=== PATIENT | female | born 1950 | race Caucasian/White ===

== ENCOUNTER → 2024-02-23 | Outpatient (CLI) | payer OTHER, SELFPAY ==
[2024-02-23 10:45] LABS: Basophils # (Auto) 0.1 Thou/mm3 (0.0-0.2); Basophils % (Auto) 1 % (0-2.5); Eosinophils # (Auto) 0.1 Thou/mm3 (0.0-0.5); Eosinophils % (Auto) 1 % (0-10); Hematocrit 38.1 % (36.0-46.0); Hemoglobin 12.4 g/dL (12.0-16.0); Immature Granulocytes % (Auto) 0 % (0-0); Immature Granulocytes Auto 0.03 Thou/mm3 (0.00-0.00); Lymphocytes # (Auto) 2.4 Thou/mm3 (1.0-4.8); Lymphocytes % (Auto) 27 % (10-50); Mean Corpuscular HGB Conc 32.5 g/dl (31.0-37.0); Mean Corpuscular Hemoglobin 28.2 pg (25.0-35.0); Mean Corpuscular Volume 87 fL (80-100); Monocytes # (Auto) 0.4 Thou/mm3 (0.0-0.8); Monocytes % (Auto) 5 % (0-12); Neutrophils # (Auto) 5.7 Thou/mm3 (1.8-7.7); Neutrophils % (Auto) 66 % (37-80); Nucleated Red Blood Cell % 0 /100 WBC (0); Platelet Count 348 Thou/mm3 (140-440); RDW Standard Deviation 45.8 fL (36.4-46.3); White Blood Count 8.7 Thou/mm3 (3.6-11.0)
[2024-02-23 10:58] LABS: Glucose Estimated Average 143 mg/dL (80-131); Hemoglobin A1C 6.6 % Hgb (4.8-6.0)
[2024-02-23 11:12] LABS: Alanine Aminotransferase 12 U/L (10-49); Albumin, Serum 4.6 gm/dL (3.4-4.8); Albumin/Globulin Ratio 2.7 (1.2-2.2); Alkaline Phosphatase 81 U/L (46-116); Anion Gap 6 (7-16); Aspartate Amino Transferase 15 U/L (0-34); BUN/Creatinine Ratio 13 Ratio (12-20); Bilirubin,Total 0.5 mg/dL (0.3-1.2); Blood Urea Nitrogen 12 mg/dL (9-23); Calcium 9.6 mg/dL (8.3-10.6); Calcium (Corrected) 9.6 mg/dL (8.5-10.1); Carbon Dioxide 27.7 mMol/L (20.0-31.0); Chloride 106 mMol/L (98-107); Creatinine (Component) 0.9 mg/dL (0.6-1.3); Globulin 1.7 gm/dL (2.3-3.5); Glucose 161 mg/dL (74-106); Osmolality,Calculated 282 (275-295); Potassium 5.1 mMol/L (3.4-5.1); Sodium 140 mMol/L (136-145); Total Protein 6.3 gm/dL (5.7-8.2); eGFR > 60 See Note
== END | disposition home or self-care (01) ==
LOC: COPL 09:48
PROVIDERS: PCP Family Medicine; Referring Provider Family Medicine; Visit Provider Family Medicine
DX: E11.65 Type 2 diabetes mellitus with hyperglycemia (principal); E03.9 Hypothyroidism, unspecified; I10 Essential (primary) hypertension
CPT/HCPCS: 36415; 80053; 83036; 85025

== ENCOUNTER 2024-05-15 08:24 | Inpatient (IN) | payer MEDICARE, OTHER, SELFPAY ==
[2024-05-15] VITALS (9 sets, daily range): BP systolic 162–187; BP diastolic 80–89; PULSE 61–90; RESP 13–97; TEMP 36.6–37; O2SAT 95–99; BMI 28.1
--- NOTE | 2024-05-15 08:28 | XR_ITS ---
Examination: CTA carotids with intravenous contrast CTA brain, head with intravenous contrast. 2-D sagittal, coronal reconstructions. 3-D reconstructions. Exam date and time: May 15, 2024 0834 hrs. Indications: Stroke alert, onset focal neurologic deficit slurred speech beginning 6:00 AM this morning CTDI: vol (mGy) 24.3 DLP: (mGycm) 421 Technique: Multiple CTA axial brain, head carotid images post intravenous contrast injection 75 cc, [id number]. 2-D sagittal, coronal reconstructions. 3-D reconstructions, 3-D post processing including vascular maximum intensity projection images. Low dose protocols were performed. One or more of the following dose reduction techniques were used; automated exposure control, adjustment of the mA and/or KV according to patient size, use of iterative reconstruction technique. Findings: No significant common carotid carotid bifurcation or internal carotid artery stenoses Dominant left vertebral artery with no critical stenoses Intracranial right vertebral artery is not well visualized Basilar artery posterior cerebral artery branches intact Juxtasellar internal carotid artery branches intact, no large vessel occlusions involving middle cerebral or anterior cerebral arteries Impression: No significant neck arterial stenoses No cerebral large vessel arterial occlusions or thrombus Consider brain MRI MRA without contrast, stroke protocol, follow-up
--- NOTE | 2024-05-15 08:28 | EDNOTE_ITS ---
ED General RME/HPI General Chief complaint: Altered Mental Status Stated complaint: AMS,POSS STROKE Time Seen by Provider: 05/15/24 08:27 Arrival date/time: 05/15/24 08:24 RME / HPI RME / HPI narrative: 73-year-old female with a history of hypertension, byc-llctont-eaoyrfhfy diabetes, who presents by EMS after being found in an f altered mental status, slurred speech at around 745 this morning. last had a conversation with her around 0630 and reports her being at her normal mental status. Related Data Home Medications ?Medication ?Instructions ?Recorded ?Confirmed Albuterol Sulfate HFA (INHALER) 1 - 2 puff inhalation Q4HR PRN 09/06/14 (PROVENTIL HFA (INHALER)) RESPIRATORY DISTRESS #0 inha lations Diphenoxylate Hcl/Atrop Sulf * 2 tab PO PRN PRN DIARRH EA #0 tabs 09/06/14 (LOMOTIL *) Fluticasone Propionate NASAL * 1 - 2 spry NASAL QDAY # 0 spry 09/06/14 (FLONASE *) Levothyroxine * (SYNTHROID *) 88 mcg PO QDAY #0 tabs 0 09/06/14 Terazosin * (HYTRIN *) 2 mg PO BID #0 caps 09/06/14 carvedilol 12.5 mg tablet (Coreg) 12.5 mg PO BID #0 ta bs 09/06/14 dapagliflozin propanediol 10 mg 10 mg PO QDAY #0 tabs 09/06/14 tablet (Farxiga) esomeprazole magnesium 40 mg 40 mg PO QDAY ##0 5 capsule,delayed release (Nexium) loratadine 10 mg tablet (Claritin) 10 mg PO QDAY #0 ta bs 09/06/14 metformin 1,000 mg tablet 1,000 mg PO BID #0 tabs 08/12 10/25 (Glucophage) pravastatin 40 mg tablet 40 mg PO HS #0 tabs 09/06/14 (Pravachol) Allergies Allergy/AdvReac Type Severity Reaction Status Date / Time Penicillins Allergy Mild Hives Verified 04/12/23 11:20 codeine Allergy Unknown Verified 04/12/23 11:20 Review of Systems Review of Systems Systems Reviewed: All systems reviewed, normal except as documented ED Exam Narrative Physical exam: GENERAL APPEARANCE: AxOx4, generally well-appearing, no acute distress, mild dysarthria, slightly confused on command but moving all 4 extremities briskly. HEENT: NC, AT. MMM. EOMI, clear conjunctiva, oropharynx clear. NECK: Supple without lymphadenopathy. No stiffness or restricted ROM. HEART: Normal rate and regular rhythm, normal S1/S1, no m/r/g LUNGS: CTAB, moving air well. No crackles or wheezes are heard. ABDOMEN: Soft, nontender, nondistended with good bowel sounds heard. BACK: No midline C/T/L spine pain or deformity, No CVAT, no obvious deformity. EXTREMITIES: Without cyanosis, clubbing or edema. MUSCULOSKELETAL: FROM of all major joints, no chest tenderness NEUROLOGICAL: Grossly nonfocal. Alert and oriented, moving all 4 extremities. CN not formally tested but appear grossly intact. Observed to ambulate with normal gait. Skin: Warm and dry without any rash. 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 Care 05/15/24 08:28 Active Continuous Pulse Oximetry NOW Care 05/15/24 08:28 Completed EKG (ED ONLY) *Do not use* NOW Care 05/15/24 08:28 Completed In and Out Catheter NEEDED Care 05/15/24 08:28 Active Insert IV NOW Care 05/15/24 08:28 Active NIH Stroke Scale now Care 05/15/24 08:28 Active NPO NOW Care 05/15/24 08:28 Active Neuro Check Q30MIN Care 05/15/24 08:28 Active Nurse Swallow Screen x1 Care 05/15/24 08:28 Active Consult to Neurology / Tele-Neurology Routine Cons 05/15/24 08:[address] angio stroke protocol Stat Exams 05/15/24 08:[address] stroke protocol Stat Exams 05/15/24 08:28 Completed EKG (ED Only) Stat Exams 05/15/24 08:28 Ordered CBC Stat Lab 05/15/24 08:30 Completed Comprehensive Metabolic Panel Stat Lab 05/15/24 08:30 Completed Drug Screen,Urine Stat Lab 05/15/24 10:45 Completed Magnesium Stat Lab 05/15/24 08:30 Completed Partial Thromboplastin Time Stat Lab 05/15/24 08:30 Completed Prothrombin Time with INR Stat Lab 05/15/24 08:30 Completed Troponin I Stat Lab 05/15/24 08:30 Completed Urinalysis Stat Lab 05/15/24 10:45 Completed Urine Culture Stat Lab 05/15/24 08:28 Received Aspirin [Ecotrin] Med 05/15/24 10:03 Discontinued 81 mg PO X1 ONE Clopidogrel [Plavix] Med 05/15/24 10:03 Discontinued 75 mg PO X1 ONE Ondansetron Inj [Zofran Inj] Med 05/15/24 08:28 Active 4 mg IV Q4HR PRN Oxygen Delivery NOW RT 05/15/24 08:28 Active Reevaluation(s) Reevaluation #1: As I am in the room assisting with IT issues with the teleneurology screen, my reevaluation notes near complete resolution of her dysarthria. She is following commands much faster however does still appear to be confused, moving all 4 extremities well. Time: 09:00 Vital Signs Vital signs: Vital Signs Temperature 98.6 F 05/15/24 08:51 Pulse Rate 64 05/15/24 08:51 Respiratory Rate 26 H 05/15/24 08:51 Blood Pressure 179/89 H 05/15/24 08:51 Pulse Oximetry (%) 95 05/15/24 08:51 Oxygen Delivery Method Room Air 05/15/24 08:51 SpO2 95% on room air, patient is not hypoxic [facility] Patient data External records reviewed:: [facility] previous records Clinical information provided by:: patient and EMS Social determinants that could affect healthcare access:: none Patient has the following chronic illnesses:: Fkq-bzywayh-howrguisq diabetes, dyslipidemia, hypothyroid How is presenting disease/condition affected by chronic disease/condition?: e xacerbated by Evaluation data The following diagnostics were reviewed and interpreted by me:: lab results and radiology exam(s) Lab and/or radiology exams considered but not ordered:: As per narrative Interpretation Summary: As per narrative Medications Medications considered but not ordered:: None Medication administrations:: Medication Administration History Ondansetron HCl (Ondansetron Inj 2 Mg/Ml Inj 2 Ml) 4 mg IV Q4HR PRN PRN Reason: NAUSEA OR VOMITING Stop: 06/14/24 08:27 Discontinued Medications Aspirin (Aspirin Ec 81 Mg Tabec) 81 mg PO X1 ONE Stop: 05/15/24 10:04 Last Admin: 05/15/24 10:55 Dose: 81 mg Documented By: DB Clopidogrel Bisulfate (Clopidogrel Bisulfate 75 Mg Tablet) 75 mg PO X1 ONE Stop: 05/15/24 10:04 Last Admin: 05/15/24 10:55 Dose: 75 mg Documented By: DEEP Above Consultations Consultation(s) initiated? (list below): Yes Consultation #1 (Physician, Specialty, Details): Teleneurology, we reviewed the case at length and agrees where even during my reevaluations dysarthria appears to have resolved. NIH SS score of 1. Recommend to start low-dose aspirin, Plavix, and admission for TIA workup/MRI, no thrombolytics given symptoms have resolved, no disabling deficits. Time: 09:15 Diagnosis Differential Diagnosis ED Complaint MDM: CVA, TIA, dehydration, intracerebral hemorrhage, seizure Most likely diagnosis given after review of the tests above:: See below Admission Indicated Admission indicated?: indicated Explain why admission is indicated or not indicated:: As per narrative Admission Request Was there a request for admission?: Yes Admission Attestation Admission request attestation: Discussed case with [Dr. Garay] from Hospitalist service regarding admission. Discussed patients ED course, exam findings, labs, and radiology results. The Hospitalist [agrees] to accept the patient for admission. Disposition Plan Disposition Plan: Admit Medical Decision Making MDM Narrative [facility] Narrative: Ms. Sahu is a clinically well-appearing female who presented as a stroke alert about 2 hours from last known well with symptoms of dysarthria. Within 30 minutes here in the emergency department the dysarthria appears to have resolved. Head CT and angiography shows no acute finding particularly no intracerebral hemorrhage or large vessel occlusion. She will require admission for further testing such as MRI to rule out TIA or ischemic stroke. Differential Diagnosis Differential Diagnosis: CVA, TIA, dehydration, intracerebral hemorrhage, seizure Lab Data 05/15/24 08:30 05/15/24 08:30 Labs: Lab Results 05/15/24 Range/Units 08:30 WBC 8.9 (3.6-11.0) Thou/mm3 RBC 4.03 (4.00-5.20) Miln/mm3 Hgb 11.5 L (12.0-16.0) g/dL Hct 34.7 L (36.0-46.0) % MCV 86 (80-100) fL MCH 28.5 (25.0-35.0) pg MCHC 33.1 (31.0-37.0) g/dl RDW Std Deviation 44.6 (36.4-46.3) fL Plt Count 289 (140-440) Thou/mm3 Neut % (Auto) 59 (37-80) % Lymph % (Auto) 33 (10-50) % [place] % (Auto) 6 (0-12) % Eos % (Auto) 1 (0-10) % Baso % (Auto) 1 (0-2.5) % Neut # (Auto) 5.2 (1.8-7.7) Thou/mm3 Lymph # (Auto) 2.9 (1.0-4.8) Thou/mm3 [place] # (Auto) 0.5 (0.0-0.8) Thou/mm3 Eos # (Auto) 0.1 (0.0-0.5) Thou/mm3 Baso # (Auto) 0.1 (0.0-0.2) Thou/mm3 Immature Gran # (Auto) 0.03 H (0.00-0.00) Thou/mm3 Absolute Nucleated RBC 0.00 (0.00-0.00) Thou/mm3 Immature Gran % 0 (0-0) % Nucleated RBC % 0 (0) /100 WBC PT 11.5 (9.0-12.2) Seconds INR 1.1 (0.9-1.3) APTT 25.9 (22.0-36.0) Seconds Sodium 142 (136-145) mMol/L Potassium 4.0 (3.4-5.1) mMol/L Chloride 104 (98-107) mMol/L Carbon Dioxide 28.2 (20.0-31.0) mMol/L Anion Gap 10 (7-16) BUN 10 (9-23) mg/dL Creatinine 0.9 (0.6-1.3) mg/dL Estim Creat Clear Calc Not Performed. eGFR > 60 (60 - ) See Note BUN/Creatinine Ratio 11 L (12-20) Ratio Glucose 150 H (74-106) mg/dL Calculated Osmolality 285 (275-295) Calcium 9.0 (8.3-10.6) mg/dL Corrected Calcium 9.0 (8.5-10.1) mg/dL Magnesium 1.4 L (1.6-2.6) mg/dL Total Bilirubin 0.6 (0.3-1.2) mg/dL AST 12 (0-34) U/L ALT 11 (10-49) U/L Alkaline Phosphatase 81 (46-116) U/L Troponin I < 0.020 (0.0-0.045) ng/mL Total Protein 6.2 (5.7-8.2) gm/dL Albumin 4.1 (3.4-4.8) gm/dL Globulin 2.1 L (2.3-3.5) gm/dL Albumin/Globulin Ratio 2.0 (1.2-2.2) Critical Care Time Critical Care Time Critical Care Time: Yes Total Critical Care Time (min.): 45 Attestation: Excluding billable procedures for the rep response, analysis, management, deliberation with specialist, treatment, and documentation of at the very possible risk of neurologic deterioration Discharge Plan Plan Patient Disposition: HOME (Self Care) Problem List Clinical Impression: TIA (transient ischemic attack), Dementia
--- NOTE | 2024-05-15 08:28 | XR_ITS ---
Examination: CT brain head without contrast. 2-D sagittal coronal reconstructions Date and time of exam:May 15, 2024 0830 hrs. Indications: Stroke alert, onset focal neurologic deficit altered mental status facial droop beginning 0600 hrs. This morning CTDI: vol (mGy):45.9 DLP: (mGycm):915 Technique: Multiple CT axial sections of the brain have been obtained, 5 mm slice thickness. Contrast has not been administered. 2-D sagittal, coronal reconstructions have been obtained Low dose protocols were performed. One or more of the following dose reduction techniques were used; automated exposure control, adjustment of the mA and/or KV according to patient size, use of iterative reconstruction technique. Findings: No significant ventricular enlargement. Intra-axial or extra-axial hemorrhage density is not seen. No mass effect or midline shift Basal cisterns are not remarkable. Fourth ventricle is midline. Cranial vault intact. Impression: Negative for acute hemorrhage, mass effect or midline shift
[2024-05-15 08:46] LABS: Basophils # (Auto) 0.1 Thou/mm3 (0.0-0.2); Basophils % (Auto) 1 % (0-2.5); Eosinophils # (Auto) 0.1 Thou/mm3 (0.0-0.5); Eosinophils % (Auto) 1 % (0-10); Hematocrit 34.7 % (36.0-46.0); Hemoglobin 11.5 g/dL (12.0-16.0); Immature Granulocytes % (Auto) 0 % (0-0); Immature Granulocytes Auto 0.03 Thou/mm3 (0.00-0.00); Lymphocytes # (Auto) 2.9 Thou/mm3 (1.0-4.8); Lymphocytes % (Auto) 33 % (10-50); Mean Corpuscular HGB Conc 33.1 g/dl (31.0-37.0); Mean Corpuscular Hemoglobin 28.5 pg (25.0-35.0); Mean Corpuscular Volume 86 fL (80-100); Monocytes # (Auto) 0.5 Thou/mm3 (0.0-0.8); Monocytes % (Auto) 6 % (0-12); Neutrophils # (Auto) 5.2 Thou/mm3 (1.8-7.7); Neutrophils % (Auto) 59 % (37-80); Nucleated Red Blood Cell % 0 /100 WBC (0); Platelet Count 289 Thou/mm3 (140-440); RDW Standard Deviation 44.6 fL (36.4-46.3); Red Blood Count 4.03 Miln/mm3 (4.00-5.20); White Blood Count 8.9 Thou/mm3 (3.6-11.0)
--- NOTE | 2024-05-15 08:58 | PC.NURSE ---
Dr. Bailey Mitchell on tele monitor talking to and assessing pt., after assessment Dr. Mitchell states he recommends MRI.
[2024-05-15 09:05] LABS: Alanine Aminotransferase 11 U/L (10-49); Albumin, Serum 4.1 gm/dL (3.4-4.8); Alkaline Phosphatase 81 U/L (46-116); Anion Gap 10 (7-16); Aspartate Amino Transferase 12 U/L (0-34); BUN/Creatinine Ratio 11 Ratio (12-20); Bilirubin,Total 0.6 mg/dL (0.3-1.2); Blood Urea Nitrogen 10 mg/dL (9-23); Carbon Dioxide 28.2 mMol/L (20.0-31.0); Chloride 104 mMol/L (98-107); Creatinine (Component) 0.9 mg/dL (0.6-1.3); Globulin 2.1 gm/dL (2.3-3.5); Glucose 150 mg/dL (74-106); INR 1.1 (0.9-1.3); Magnesium 1.4 mg/dL (1.6-2.6); Osmolality,Calculated 285 (275-295); Partial Thromboplastin Time 25.9 Seconds (22.0-36.0); Prothrombin Time 11.5 Seconds (9.0-12.2); Sodium 142 mMol/L (136-145); Total Protein 6.2 gm/dL (5.7-8.2); Troponin I < 0.020 ng/mL (0.0-0.045); eGFR > 60 See Note
--- NOTE | 2024-05-15 09:55 | ESCONSULT_ITS ---
Tele Neuro Consultation Consultation Date 05/15/24 Most Recent Vital Signs Last Vital Signs Temp 98.6 F 05/15/24 08:51 Pulse 62 05/15/24 09:29 Resp 13 05/15/24 09:29 BP 179/89 H 05/15/24 08:51 Pulse Ox 95 05/15/24 08:51 O2 Del Method Room Air 05/15/24 08:51 Laboratory-Coagulation Panel PT 11.5 Seconds (9.0-12.2) 05/15/24 08:30 INR 1.1 (0.9-1.3) 05/15/24 08:30 APTT 25.9 Seconds (22.0-36.0) 05/15/24 08:30 Consultation Narrative [facility] Patient Name:???Mikayla Sahu Date of :???1950 Identification Number:??? Date of Service:???05/15/2024 08:23:00 Diagnosis:?G45.9 - Transient cerebral ischemic attack, unspecified Impression: ?73 yo F with PMH of dementia, DM2, who presents to ED via EMS with facial droop. NIHSS of 6 for confusion, aphasia, and BLE weakness. No facial droop seen. CTH without hemorrhage. CTA without LVO. ?Thrombolytics not recommended due to suspicion of another diagnosis, inability to determine eligibility and resolved facial droop. ?Differential includes TIA vs acute ischemic stroke vs encephalopathy from any cause. ?Recommend toxic/metabolic evaluation, initiating dual anti platelet therapy and admission for stroke work up. ? ? Our recommendations are outlined below. Recommendations: ? Stroke/Telemetry Floor ? Neuro Checks ? Bedside Swallow Eval ? DVT Prophylaxis ? IV Fluids, Normal Saline ? Euglycemia and Avoid Hyperthermia (PRN Acetaminophen) ? Hold Anticoagulation for Now ? Bolus with Clopidogrel 300 mg bolus x1 and initiate dual antiplatelet therapy with Aspirin 81 mg daily and Clopidogrel 75 mg daily ? Antihypertensives PRN if Blood pressure is greater than 220/120 or there is a concern for End organ damage/contraindications for permissive HTN. If blood pressure is greater than 220/120 give labetalol PO or IV or Vasotec IV with a goal of 15% reduction in BP during the first 24 hours. Sign Out: ? Discussed with Emergency Department Provider Advanced Imaging:CTA Head and Neck Completed. LVO:No Patient in not a candidate for SUDHA Metrics: Last Known Well: 05/15/2024 06:30:15 Dispatch Time: 05/15/2024 08:23:00 Arrival Time: 05/15/2024 08:24:15 Initial Response Time: 05/15/2024 08:26:02Symptoms: facial droop. Initial patient interaction: 05/15/2024 08:55:37 NIHSS Assessment Completed: 05/15/2024 09:08:56Patient is not a candidate for Thrombolytic. Thrombolytic Medical Decision: 05/15/2024 09:08:57Patient was not deemed candidate for Thrombolytic because of following reasons: other diagnosis suspected TIA, encephalopathy. As per Radiologist CT Showed no hemorrhage Primary Provider Notified of Diagnostic Impression and Management Plan on: 05/15/2024 09:30:46 History of Present Illness:Patient is a 73 year old Female. Patient was brought by EMS for symptoms of facial droop. 73 yo F with PMH of dementia, DM2, who presents to ED via EMS with facial droop. Per EMS report, patient called paramedics after seeing his with an apparent facial droop. She also seemed more confused this morning, but is chronically confused. Unclear neurologic baseline. No history of blood thinner use. ? Past Medical History: ?Diabetes Mellitus ?Dementia/MCI unable to obtain due to:?? Patient Is Confused Medications: Anticoagulant use:??Unknown Antiplatelet use:?Unknown Reviewed EMR for current medications Allergies:? Reviewed Description:?PCN, codeine Allergies Unable To Obtain Due To:?Patient Is Confused Social History: Unable To Obtain Due To Patient Status :?Patient Is Confused Family History: Family History Cannot Be Obtained Because:Patient Is Confused ROS :?ROS Cannot Be Obtained Because:? Patient Is Confused Past Surgical History: Past Surgical History Cannot Be Obtained Because: Patient Is Confused There Is No Surgical History Contributory To Today?s Visit ? Examination: BP(179/85),?Pulse(63),?Blood Glucose(188) 1A: Level of Consciousness - Alert; keenly responsive?+ 0 1B: Ask Month and Age - Could Not Answer Either Question Correctly?+ 2 1C: Blink Eyes & Squeeze Hands - Performs Both Tasks?+ 0 2: Test Horizontal Extraocular Movements - Normal?+ 0 3: Test Visual Cr - No Visual Loss?+ 0 4: Test Facial Palsy (Use Grimace if Obtunded) - Normal symmetry?+ 0 5A: Test Left Arm Motor Drift - No Drift for 10 Seconds?+ 0 5B: Test Right Arm Motor Drift - No Drift for 10 Seconds?+ 0 6A: Test Left Leg Motor Drift - Drift, but doesn't hit bed?+ 1 6B: Test Right Leg Motor Drift - Drift, but doesn't hit bed?+ 1 7: Test Limb Ataxia (FNF/Heel-Posey) - No Ataxia?+ 0 8: Test Sensation - Normal; No sensory loss?+ 0 9: Test Language/Aphasia - Severe Aphasia: Fragmentary Expression, Inference Needed, Cannot Identify Materials?+ 2 10: Test Dysarthria - Normal?+ 0 11: Test Extinction/Inattention - No abnormality?+ 0 NIHSS Score:?6 Pre-Morbid Modified Lul Scale:Unable to assess Spoke with :?Dr. Puentes This consult was conducted in real time using interactive audio and video technology. Patient was informed of the technology being used for this visit and agreed to proceed. Patient located in hospital and provider located at [facility] e/office setting. Patient is being evaluated for possible acute neurologic impairment and high probability of imminent or life-threatening deterioration. I spent total of 51 minutes providing care to this patient, including time for face to face visit via telemedicine, review of medical records, imaging studies and discussion of findings with providers, the patient and/or family. Dr Bailey Mitchell [facility] For Inpatient follow-up with [facility] physician please call [facility] at . As we are not an outpatient service for any post hospital discharge needs please contact the hospital for assistance. If you have any questions for the [facility] physicians or need to reconsult for clinical or diagnostic changes please contact us via [facility] at .
[2024-05-15] MEDS: ASPIRIN EC 81 MG TABEC PO (10:55)
[2024-05-15] MEDS: CLOPIDOGREL BISULFATE 75 MG TABLET PO (10:55)
[2024-05-15 10:57] LABS: Collection Type, Urine Clean Catch
[2024-05-15 11:08] LABS: Bilirubin,Urine Negative (Negative); Blood,Urine Negative (Negative); Clarity,Urine Clear (Clear/Hazy); Color,Urine Lt-Yellow (Lt Yel-Yel); Glucose, Urine Negative (Negative); Ketones,Urine Negative (Negative); Leukocyte Esterase,Urine Positive (Negative); Nitrite,Urine Negative (Negative); Protein,Urine Negative (Neg - Trace); RBC,Urine < 1 /hpf (0-3); Specific Gravity,Urine 1.037 (1.001-1.035); Squamous Epithelial Cell,Urine 4 /hpf (0-5); Urobilinogen,Urine Negative mg/dL (0.0-1.0); WBC,Urine 5 /hpf (0-5)
[2024-05-15 11:15] LABS: Amphetamine/Methamp Scrn,U Negative (Negative); Barbiturate Screen,Urine Negative (Negative); Benzodiazepines Screen,Urine Negative (Negative); Benzoylecgonine Screen, Ur Negative (Negative); Fentanyl Screen,Urine Negative (Negative); Opiate Screen,Urine Negative (Negative); THC Screen,Urine Negative (Negative)
--- NOTE | 2024-05-15 13:11 | ECHO_ITS ---
Transthoracic Echo Report Ht (in): 145 Wt (lb): 188 Exam Location: Echo Lab Status: Inpatient [place] Alarm Operator: Kori Acosta Indications: Procedure Performed: BP: 118 / 87 HR: 79 Technical Quality: Technically difficult study MEASUREMENTS (Male / Female) Normal Values 2D ECHO LV Diastolic Diameter PLAX 4.9 cm 4.2 - 5.9 / 3.9 - 5.3 cm LV Systolic Diameter PLAX 3.4 cm IVS Diastolic Thickness 0.7 cm 0.6 - 1.0 / 0.6 - 0.9 cm LVPW Diastolic Thickness 0.9 cm 0.6 - 1.0 / 0.6 - 0.9 cm LV Relative Wall Thickness 0.3 LVOT Diameter 1.7 cm LV Ejection Fraction MOD BP 44.6 % >= 55 % LV Cardiac Index MOD BP 1142.8 cm?/min?m? LV Ejection Fraction MOD 4C 45.1 % LV Cardiac Index MOD 4C 999.6 cm?/min?m? LV Ejection Fraction 4C AL 46.1 % LV Cardiac Index 4C AL 1073.6 cm?/min?m? LV Ejection Fraction MOD 2C 41.5 % LV Cardiac Index MOD 2C 1145.7 cm?/min?m? LV Ejection Fraction 2C AL 41.9 % LV Cardiac Index 2C AL 1211.1 cm?/min?m? LA Volume Index 14.9 cm?/m? 16 - 28 cm?/m? M-MODE Aortic Root Diameter MM 2.4 cm AV Cusp Separation MM 1.3 cm DOPPLER AV Peak Velocity 141.0 cm/s AV Peak Gradient 8.0 mmHg AV Mean Gradient 4.0 mmHg AV Velocity Time Integral 31.3 cm LVOT Peak Velocity 95.3 cm/s LVOT Peak Gradient 3.6 mmHg LVOT Velocity Time Integral 21.7 cm LVOT Cardiac Index 1410.8 cm?/min?m? AV Area Cont Eq vti 1.6 cm? AV Area Cont Eq pk 1.5 cm? MV Area PHT 3.4 cm? MR Peak Velocity 351.0 cm/s MR Peak Gradient 49.3 mmHg Mitral E Point Velocity 50.4 cm/s Mitral A Point Velocity 79.5 cm/s Mitral E to A Ratio 0.6 LV E' Lateral Velocity 7.0 cm/s Mitral E to LV E' Lateral Ratio 7.2 LV E' Septal Velocity 5.8 cm/s Mitral E to LV E' Septal Ratio 8.7 PV Peak Velocity 93.7 cm/s PV Peak Gradient 3.5 mmHg FINDINGS Left Ventricle Normal left ventricular size, wall thickness, systolic function with no obvious regional wall motion abnormalities. Normal left ventricular diastolic filling pattern for age. The ejection fraction is visually estimated at 50 %. Right Ventricle The right ventricle is normal in size and systolic function. Left Atrium The left atrial cavity size is mildly increased. Right Atrium The right atrium is normal by two-dimensional imaging, color flow and Doppler imaging with no structural abnormalities, no thrombus formation present. Atrial Septum The interatrial septum appears normal with no evidence of a shunt. Aorta The aorta is normal by two-dimensional, color flow and Doppler interrogation. Mitral Valve The mitral valve is normal by two-dimensional, color flow and Doppler interrogation. There is mild mitral valve regurgitation, stenosis or prolapse. Aortic Valve The aortic valve is trileaflet and normal by two-dimensional, color flow and Doppler interrogation. There is no significant aortic valve regurgitation. Tricuspid Valve The tricuspid valve is normal by two-dimensional, color flow and Doppler interrogation. There is no significant tricuspid valve regurgitation. Pulmonic Valve The pulmonic valve is not well visualized. There is no significant pulmonic valve regurgitation. Vessels The pulmonary artery appears normal. The inferior vena cava pulmonary and hepatic veins appear normal. Pericardium The pericardium is normal by two-dimensional imaging. There is no significant pericardial effusion. CONCLUSIONS Indication: Bubble study Negative bubble study Normal left ventricular size and function. Estimated EF 50%. RV is normal in size and systolic function. LA cavity size is mildly increased. Mild MR. Magui Joe (Electronically Signed) Final Date: 17 May 2024 08:45
--- NOTE | 2024-05-15 13:30 | ESHP_ITS ---
Documentation for date of: 05/15/24 HPI History of Present Illness Chief complaint: Slurred speech, generalized weakness, acute encephalopathy History of present illness: 73-year-old female with past medical history of dementia, DM2, and hyperlipidemia was admitted to hospital on 05/15/2024 after coming to the ED with complaints of slurred speech, altered mental status, and weakness. Patient's who was at bedside providing most of the history given that patient has dementia at baseline. Per patient's he stated that the patient was in her usual state of health yesterday as well as earlier this morning, but and when he rechecked on her around 7:30 AM he noticed that she had some slurred speech and she could not get up of her seat and that even though he tried helping her standing up she would just plummet back to the seat. He also mentioned that she was a little bit more confused as she did not respond to his questions. He stated that the last time she was normal was a little bit earlier around 6:30 AM. He stated that this has been the first episode which the symptoms happen. On my assessment patient was back to baseline and she was able to move all extremities as well as maintain proper conversation. Her speech did not sound slurred at this time either. She was AO x 1 only to person, but this could be due to to her baseline dementia. As per the the patient has not been sick as of recently, no chest pain, or burning sensation during urination. ED course Initially patient came in hypertensive, tachypneic, and afebrile. Initial labs were relevant for low hemoglobin (11.5), hypomagnesemia (1.4), and UA was positive for leukocytes esterase, but no bacteria. Initial imaging included EKG which showed sinus tachycardia, head CT which was unremarkable, and head CTA which was also unremarkable. In the ED stroke alert was called and teleneurology recommended to place patient on DAPT and to allow permissive hypertension and to follow-up with MRI as per stroke protocol. PMH: As above Social Hx: Denies any alcohol, smoking, or drugs Review of Systems Review of Systems ROS Unobtainable: unobtainable due to medical condition Past Medical History Past Medical History CARDIAC: Negative Congestive Heart Failure RESPIRATORY: Negative Chronic Obstructive Pulmonary Disease (COPD) GENITOURINARY: Negative Renal Disease ENDOCRINE: Negative Diabetes Mellitus Type 1 or Diabetes Mellitus Type 2 OTHER HISTORY: Negative Blood Transfusions Social History SMOKING STATUS: Never smoker Exam Vital Signs Temp Pulse Resp BP Pulse Ox O2 Del Method 98.0 F 62 16 169/86 H 97 Room Air 05/15/24 11:18 05/15/24 11:18 05/15/24 11:18 05/15/24 11:18 05/15/24 11:18 05/15/24 11:18 Narrative Exam General: A/O x1 (only to time), no acute distress, well-nourished, well- developed Eyes: PERRL, EOMI. Anicteric, vision grossly intact. Ears: No ear pain, no ear discharge, Hearing grossly intact. Nose: No nasal discharge. Mouth/Throat: Dry mucous membranes, no redness, no lesions. Neck: Neck supple, non-tender, no cervical lymphadenopathy. Lungs: Clear LYUBOV to auscultation and percussion, No accessory muscle use. Cardio: Normal S1/S2, regular rhythm, no murmurs, no JVD Abdomen: Soft, non-tender, no palpable masses, peristalsis present, no guarding or rebound. Extremities: Symmetrical, no significant deformities, no peripheral edema , non-tender, peripheral pulses presents. Skin: No rashes, no lesions, warm to touch. Neuro: No focal neurological deficits. no facial asymmetry and strength and sensory intact. Psych: flat affect Results: Labs 05/15/24 08:30 05/15/24 08:30 Labs: Short CBC 05/15/24 Range/Units 08:30 WBC 8.9 (3.6-11.0) Thou/mm3 Hgb 11.5 L (12.0-16.0) g/dL Hct 34.7 L (36.0-46.0) % Plt Count 289 (140-440) Thou/mm3 BMP 05/15/24 08:30 Sodium 142 Potassium 4.0 Chloride 104 Carbon Dioxide 28.2 BUN 10 Creatinine 0.9 Glucose 150 H Calcium 9.0 Cardiac Enzymes 05/15/24 Range/Units 08:30 Troponin I < 0.020 (0.0-0.045) ng/mL Liver Function 05/15/24 Range/Units 08:30 Total Bilirubin 0.6 (0.3-1.2) mg/dL AST 12 (0-34) U/L ALT 11 (10-49) U/L Alkaline Phosphatase 81 (46-116) U/L Albumin 4.1 (3.4-4.8) gm/dL Urine 05/15/24 Range/Units 10:45 Urine Color Lt-Yellow (Lt Yel-Yel) Urine Clarity Clear (Clear/Hazy) Urine pH 7.0 (5.0-7.0) Ur Specific [place] 1.037 H (1.001-1.035) Urine Protein Negative (Neg - Trace) Urine Glucose (UA) Negative (Negative) Quality Measures Quality Measures stroke Suspected type of Stroke: Acute Ischemic Last known well (date): 05/15/24 Last known well (time): 06:30 Tenecteplase given: Reason(s) Tenecteplase not given: Stroke severity too mild (non-disabling) not given Rehab services: PT evaluation ordered and Speech Language Pathology eval ordered VTE Prophylaxis: pharmaceutical Antithrombotic by day 2:: not indicated (describe) Statin ordered: >75 y/o moderate or high intensity dose Anticoagulation ordered for A- fib or flutter (current or hx): not indicated Advance care planning discussed with:: patient Medications Home Medications and Allergies Home Medications ?Medication ?Instructions ?Recorded ?Confirmed ?Type metformin 1,000 mg tablet 1,000 mg PO BID #0 tabs 08/1205/15/24 History (Glucophage) pravastatin 40 mg tablet 20 mg PO HS #0 tabs 09/06/14 05/15/24 History (Pravachol) donepezil 10 mg tablet 10 mg PO QDAY 05/15/2405/15 History glyburide 5 mg tablet 5 mg PO TID 05/15/24 5 History lorazepam 2 mg/mL oral concentrate 0.5 mg PO PRN PRN a gitation 05/15/24 05/15/24 History (Lorazepam Intensol) mirtazapine 30 mg tablet 30 mg PO QDAY SLEEP 05/15/24 05/15/24 History quetiapine 50 mg tablet 100 mg PO Q6H 05/15/2405/15 History Allergies Allergy/AdvReac Type Severity Reaction Status Date / Time Penicillins Allergy Mild Hives Verified 04/12/23 11:20 codeine Allergy Unknown Verified 04/12/23 11:20 Visit Medications Acetaminophen (Acetaminophen 325 Mg Tablet) 650 mg PO Q6H PRN PRN Reason: pain and Fever >100.4 Stop: 06/14/24 13:07 Hydrocodone Bitart/Acetaminophen (Hydrocodone/Apap 5/325 Tablet) 1 tab PO Q4HR PRN PRN Reason: PAIN SCALE 4-10(Mod-Sev Stop: 05/20/24 13:07 Aspirin (Aspirin Ec 81 Mg Tabec) 81 mg PO QDAY [facility] Stop: 06/15/24 08:59 Atorvastatin Calcium (Atorvastatin Calcium 20 Mg Tablet) 40 mg PO HS [facility] Stop: 06/14/24 20:59 Clopidogrel Bisulfate (Clopidogrel Bisulfate 75 Mg Tablet) 75 mg PO QDAY [facility] Stop: 06/15/24 08:59 Dextrose (Dextrose 50%-Water Inj 50 Ml Syringe) 25 ml IV Q15MIN PRN PRN Reason: BG 50-70 responsive npo pt Stop: 06/14/24 13:07 Dextrose (Dextrose 50%-Water Inj 50 Ml Syringe) 50 ml IV Q15MIN PRN PRN Reason: BG <50 OR BG <70 & pt unresponsive Stop: 06/14/24 13:07 Glucagon (Glucagon Inj 1 Mg Vial) 1 mg IM Q15MIN PRN PRN Reason: BG <70, and no IV access Heparin Sodium (Porcine) (Heparin Sod Inj 5000 Unit/Ml Vial) 5,000 unit SC Q8HR [facility] Stop: 05/29/24 13:59 Sodium Chloride (Ns) 1,000 mls @ 75 mls/hr IV .[id number] [facility] Stop: 05/16/24 02:34 Insulin Human Lispro (Insulin Lispro (Admelog) 1 Unit/0.01 Ml Unit) 0 unit SC AC [facility]; Protocol Stop: 06/14/24 16:59 Ondansetron HCl (Ondansetron Inj 2 Mg/Ml Inj 2 Ml) 4 mg IV Q6H PRN; Protocol PRN Reason: NAUSEA OR VOMITING Stop: 06/14/24 13:07 Pantoprazole Sodium (Pantoprazole 40 Mg Tablet) 40 mg PO QDAY [facility] Stop: 06/15/24 08:59 Sennosides (Senna Tablet) 1 tab PO QDAY PRN; Protocol PRN Reason: constipation Stop: 06/14/24 13:07 Discontinued Medications Aspirin (Aspirin Ec 81 Mg Tabec) 81 mg PO X1 ONE Stop: 05/15/24 10:04 Last Admin: 05/15/24 10:55 Dose: 81 mg Clopidogrel Bisulfate (Clopidogrel Bisulfate 75 Mg Tablet) 75 mg PO X1 ONE Stop: 05/15/24 10:04 Last Admin: 05/15/24 10:55 Dose: 75 mg Ondansetron HCl (Ondansetron Inj 2 Mg/Ml Inj 2 Ml) 4 mg IV Q4HR PRN PRN Reason: NAUSEA OR VOMITING Stop: 06/14/24 08:27 Assessment & Plan Plan 73-year-old female with past medical history of dementia, DM2, and hyperlipidemia was admitted to hospital on 05/15/2024 for stroke rule out with complaints of slurred speech, acute encephalopathy, and weakness. #TIA #Slurred speech #Acute cephalopathy #Generalized weakness ? Patient initially came in with complaints of slurred speech as well as confusion and generalized weakness as per . ? On my assessment patient was already back to her baseline with no weakness or slurred speech appreciated. She is AO x 1 at baseline. ?DDx TIA versus metabolic encephalopathy ?NIHSS score 6 ?CTA head and neck and CT head unremarkable ?Teleneuro consulted and advised DAPT, permissive HTN, and MRI Plan: ?Patient not a candidate for IV thrombolytics. -MRI ordered per stroke protocol -Echo ordered ?Neurochecks every 4 hours ?Allow permissive hypertension ?Head of bed elevation to 30 degrees ?Aspiration precautions -Consult in-hospital neurology, appreciate recommendations -Referred to speech and physical therapy #UTI ? Patient's UA was positive for leukocyte esterase ? Given patient's dementia patient cannot provide history if she is having dysuria Plan: ? Rocephin 1 g daily [05/15/2024?] ?Urine cultures ordered ? Will continue to monitor #Hx of DM2 ? A1c 6.6 02/2024 Plan: ?A1c ordered ? ISS ? Accu-Cheks and hypoglycemia protocol ? Will continue to monitor #Hx of dementia ? Will restart patient's medication after medication reconciliation #Hx of hyperlipidemia ? Will start patient on atorvastatin 40 at bedtime Disposition: Patient admitted to telemetry for stroke R/O, pending Neuro recs, continue DAPT, pending echo. Diet: carb consistent GI prophylaxis: not indicated DVT prophylaxis: Heparin sc Code: Full code Case disclosed with Attending Dr. Anthony Moran PGY1 Attending Provider Attestation/Addendum I have examined the patient, reviewed labs and imaging findings, discussed the case with the resident(s), and reviewed entered orders. I agree with the plan of care as outlined in this note, with these additional summaries/recommendations: 73-year-old female with history of dementia, DM, hyperlipidemia presents to the ED with chief complaint of left-sided facial weakness and slurred speech. Stroke workup initiated but patient symptoms resolved by the time imaging and teleneurology consult was done. CT head done in the ED was negative for acute hemorrhage, mass effect or midline shift. Teleneuro advised to admit patient for further workup and management of TIA. UA also positive for UTI so will initiate on Rocephin. Patient does have history of dementia and has been warned that she sometimes will wander and may need sitter given she is high risk for hospital delirium. Greg Cruz MD
[2024-05-15] MEDS: HEPARIN SOD INJ 5000 UNIT/ML VIAL SC ×2 (14:15→21:16)
[2024-05-15] MEDS: SODIUM CHLORIDE 0.9% 1000 ML 1,000 ML 75 ML IV (14:44)
[2024-05-15] MEDS: cefTRIAXone/D5w 1gm IV premix 50 ML IV (17:04)
[2024-05-15] MEDS: Magnesium Sulfate 4 GM Ivpb 4 GM/50 ML BAG IV (17:04)
[2024-05-15] MEDS: HYDROcodone/APAP 5/325 TABLET 1 TAB PO (19:52)
[2024-05-15] MEDS: ATORVASTATIN CALCIUM 20 MG TABLET 40 MG PO (20:01)
--- NOTE | 2024-05-15 23:55 | PC.NURSE ---
pt pulled out IV, new one placed
[2024-05-16] VITALS (8 sets, daily range): BP systolic 118–188; BP diastolic 75–96; PULSE 58–85; RESP 14–96; TEMP 36.1–36.8; O2SAT 96–99; BMI 28.7
--- NOTE | 2024-05-16 | XR_ITS ---
Examinations: MRI Brain without intravenous contrast. MRA brain without intravenous contrast. MRA carotids without intravenous contrast 3-D vascular reconstructions Date and time of exam: May 16, 2024 1227 hours INDICATIONS: Stroke alert May 15, 2024 onset slurred speech weakness Technique: Multiple axial and sagittal images of the brain have been obtained MRA brain carotid images without contrast obtained, including 3-D postprocessing, vascular maximum intensity projection images Findings: [place] is not enlarged. The optic chiasm and infundibular stalk are not remarkable. Prepontine and interpeduncular cisterns are not enlarged. No localized enlargement of the medulla or [place]. Fourth ventricle and cerebellar tonsils normal in position. Subacute hemorrhage is not seen. Fourth ventricle is midline. Mass in the cerebellopontine angle region is not evident. 7th and 8th nerve complexes exhibits symmetry. Globes are symmetrical with no retro-orbital mass. Increased white matter signal moderate Diffusion-weighted images demonstrate no focus of restricted diffusion Mass-effect upon the ventricular system is not identified. MRA brain images no large vessel occlusions Impression: Negative for acute hemorrhage, mass effect or midline shift Moderate chronic microvascular white matter change
--- NOTE | 2024-05-16 03:52 | PC.NURSE ---
SPOKE TO MD LOZANO ABOUT GETTING A PRN BLOOD PRESSURE MEDICATION WITH PARAMETERS. CURRENT BP IS 188/94.HR64. SAID HE WILL PUT SOMETHING IN
[2024-05-16] MEDS: hydrALAZINE HCL 10 MG TABLET PO (04:24)
[2024-05-16] MEDS: HEPARIN SOD INJ 5000 UNIT/ML VIAL SC ×3 (05:08→20:37)
[2024-05-16 06:20] LABS: Basophils # (Auto) 0.1 Thou/mm3 (0.0-0.2); Basophils % (Auto) 1 % (0-2.5); Eosinophils # (Auto) 0.1 Thou/mm3 (0.0-0.5); Eosinophils % (Auto) 1 % (0-10); Hematocrit 34.8 % (36.0-46.0); Hemoglobin 11.6 g/dL (12.0-16.0); Immature Granulocytes % (Auto) 0 % (0-0); Immature Granulocytes Auto 0.01 Thou/mm3 (0.00-0.00); Lymphocytes # (Auto) 2.4 Thou/mm3 (1.0-4.8); Lymphocytes % (Auto) 30 % (10-50); Mean Corpuscular HGB Conc 33.3 g/dl (31.0-37.0); Mean Corpuscular Hemoglobin 28.7 pg (25.0-35.0); Mean Corpuscular Volume 86 fL (80-100); Monocytes # (Auto) 0.5 Thou/mm3 (0.0-0.8); Monocytes % (Auto) 7 % (0-12); Neutrophils # (Auto) 4.8 Thou/mm3 (1.8-7.7); Neutrophils % (Auto) 61 % (37-80); Nucleated Red Blood Cell % 0 /100 WBC (0); Platelet Count 303 Thou/mm3 (140-440); RDW Standard Deviation 44.3 fL (36.4-46.3); Red Blood Count 4.04 Miln/mm3 (4.00-5.20); White Blood Count 7.9 Thou/mm3 (3.6-11.0)
[2024-05-16 06:52] LABS: Glucose Estimated Average 160 mg/dL (80-131); Hemoglobin A1C 7.2 % Hgb (4.8-6.0)
[2024-05-16 07:09] LABS: Alanine Aminotransferase 11 U/L (10-49); Albumin, Serum 4.3 gm/dL (3.4-4.8); Albumin/Globulin Ratio 2.2 (1.2-2.2); Alkaline Phosphatase 75 U/L (46-116); Anion Gap 10 (7-16); Aspartate Amino Transferase 15 U/L (0-34); BUN/Creatinine Ratio 14 Ratio (12-20); Bilirubin,Total 0.4 mg/dL (0.3-1.2); Blood Urea Nitrogen 10 mg/dL (9-23); Calcium 9.2 mg/dL (8.3-10.6); Calcium (Corrected) 9.2 mg/dL (8.5-10.1); Carbon Dioxide 27.9 mMol/L (20.0-31.0); Chloride 102 mMol/L (98-107); Creatinine (Component) 0.7 mg/dL (0.6-1.3); Estimated Creatinine Clearance 80.1 mL/min (>60); Glucose 156 mg/dL (74-106); Osmolality,Calculated 281 (275-295); Potassium 3.8 mMol/L (3.4-5.1); Sodium 140 mMol/L (136-145); Thyroid Stimulating Hormone 7.21 uIU/mL (0.55-4.78); Total Protein 6.3 gm/dL (5.7-8.2); eGFR > 60 See Note
[2024-05-16 07:22] LABS: Cardiac Risk Estimate 3.7 RATIO (3.7-5.6); Cholesterol 156 mg/dL (132-200); HDL Cholesterol 42 mg/dL (40-60); LDL Cholesterol,Calculated 87 mg/dL (0-130); Triglycerides 137 mg/dL (30-150)
[2024-05-16] MEDS: INSULIN LISPRO (AdmeLOG) 1 UNIT/0.01 ML UNIT SC ×3 (07:33→16:48)
[2024-05-16] MEDS: ASPIRIN EC 81 MG TABEC PO (08:06)
[2024-05-16] MEDS: CLOPIDOGREL BISULFATE 75 MG TABLET PO (08:06)
[2024-05-16] MEDS: PANTOPRAZOLE 40 MG TABLET PO (08:06)
[2024-05-16 09:17] LABS: Free T4 (Free Thyroxine) 1.03 ng/dL (0.89-1.76)
--- NOTE | 2024-05-16 11:23 | PC.PT ---
PT eval only. Patient is at her PLOF. She is xI with bed mobility, transfers and ambulation with no DME. Patient is safe to ambulate to the bathroom and in the [place] with 1 staff assist for safety 2/2 she can be slightly impulsive due to her dementia.
--- NOTE | 2024-05-16 14:24 | ESPR_ITS ---
<Statement entered by Palmira Red MD - 05/16/24 15:47> I discussed with and supervised my co-resident involved in the care of this patient. I agree with the assessment and plan as documented above. Patient seen and examined at bedside with spouse. Per , patient looks much better and is back to baseline mentation. Patient does not recall events leading up to her hospitalization. No focal neurologic deficits appreciated on exam. Head CT and MRI negative. Per physical therapy, patient back to prior level of functioning. Will follow up with neurology recommendations and anticipate discharge within the next 24-48 hours. Palmira Red MD PGY-3 Documentation for date of: 05/16/24 Subjective Subjective Interval history: Patient was seen at bedside this morning. No overnight events. Patient was back at baseline today as per and stated that this was her normal. She had no focal neurological deficits and had proper strength all throughout as well as able to follow commands and answer questions. She was still AO x 1 (only to person), which is her baseline. MRI did not show any acute infarct and only showed chronic white matter changes. Will continue to monitor for now. Exam Vital Signs Temp Pulse Resp BP Pulse Ox O2 Del Method 96.9 F 71 18 123/93 H 99 Room Air 05/16/24 08:00 05/16/24 12:00 05/16/24 09:17 05/16/24 08:00 05/16/24 08:00 05/16/24 08:00 Narrative Exam General: A/O x1 (only to time), no acute distress, well-nourished, well- developed Eyes: PERRL, EOMI. Anicteric, vision grossly intact. Ears: No ear pain, no ear discharge, Hearing grossly intact. Nose: No nasal discharge. Mouth/Throat: Dry mucous membranes, no redness, no lesions. Neck: Neck supple, non-tender, no cervical lymphadenopathy. Lungs: Clear LYUBOV to auscultation and percussion, No accessory muscle use. Cardio: Normal S1/S2, regular rhythm, no murmurs, no JVD Abdomen: Soft, non-tender, no palpable masses, peristalsis present, no guarding or rebound. Extremities: Symmetrical, no significant deformities, no peripheral edema , non-tender, peripheral pulses presents. Skin: No rashes, no lesions, warm to touch. Neuro: No focal neurological deficits. motor strength and sensory intact. Psych: appropriate affect Objective Labs 05/17/24 05:10 05/17/24 05:10 Labs: Laboratory Results - last 24 hr 05/16/24 05:39 WBC 7.9 RBC 4.04 Hgb 11.6 L Hct 34.8 L MCV 86 MCH 28.7 MCHC 33.3 RDW Std Deviation 44.3 Plt Count 303 Neut % (Auto) 61 Lymph % (Auto) 30 [place] % (Auto) 7 Eos % (Auto) 1 Baso % (Auto) 1 Neut # (Auto) 4.8 Lymph # (Auto) 2.4 [place] # (Auto) 0.5 Eos # (Auto) 0.1 Baso # (Auto) 0.1 Immature Gran # (Auto) 0.01 H Absolute Nucleated RBC 0.00 Immature Gran % 0 Nucleated RBC % 0 Sodium 140 Potassium 3.8 Chloride 102 Carbon Dioxide 27.9 Anion Gap 10 BUN 10 Creatinine 0.7 Estim Creat Clear Calc 80.1 eGFR > 60 BUN/Creatinine Ratio [address] Glu mg/dL 160 H Hemoglobin A1c 7.2 H Calculated Osmolality 281 Calcium 9.2 Corrected Calcium 9.2 Magnesium 2.0 Total Bilirubin 0.4 AST 15 ALT 11 Alkaline Phosphatase 75 Total Protein 6.3 Albumin 4.3 Globulin 2.0 L Albumin/Globulin Ratio 2.2 Triglycerides 137 Cholesterol 156 LDL Cholesterol, Calc 87 HDL Cholesterol 42 Cholesterol/HDL Ratio 3.7 TSH 7.21 H Free T4 1.03 Quality Measures Quality Measures stroke Suspected type of Stroke: Acute Ischemic Last known well (date): 05/15/24 Last known well (time): 06:30 Tenecteplase given: Reason(s) Tenecteplase not given: Stroke severity too mild (non-disabling) not given Rehab services: PT evaluation ordered and Speech Language Pathology eval ordered VTE Prophylaxis: pharmaceutical Antithrombotic by day 2:: not indicated (describe) Statin ordered: >75 y/o moderate or high intensity dose Anticoagulation ordered for A- fib or flutter (current or hx): not indicated Advance care planning discussed with:: patient Assessment & Plan Assessment Current Active Medications: Generic Name Dose Route Start Last Admin Trade Name Freq PRN Reason Stop Dose Admin Acetaminophen 650 mg 05/15/24 13:08 Acetaminophen 325 Mg Tablet PO 06/14/24 13:07 Q6H PRN pain and Fever >100.4 Hydrocodone Bitart/Acetaminophen 1 tab 05/15/24 13:08 05/15/24 19:52 Hydrocodone/Apap 5/325 Tablet PO 05/20/24 13:07 1 tab Q4HR PRN Administration PAIN SCALE 4-10(Mod-Sev Aspirin 81 mg 05/16/24 09:00 05/16/24 08:06 Aspirin Ec 81 Mg Tabec PO 06/15/24 08:59 81 mg QDAY [facility] Administration Atorvastatin Calcium 40 mg 05/15/24 21:00 05/15/24 20:01 Atorvastatin Calcium 20 Mg Tablet PO 06/14/24 20:59 40 mg HS [facility] Administration Clopidogrel Bisulfate 75 mg 05/16/24 09:00 05/16/24 08:06 Clopidogrel Bisulfate 75 Mg Tablet PO 06/15/24 08:59 75 mg QDAY [facility] Administration Dextrose 25 ml 05/15/24 13:08 Dextrose 50%-Water Inj 50 Ml Syringe IV 06/14/24 13:07 Q15MIN PRN BG 50-70 responsive npo pt Dextrose 50 ml 05/15/24 13:08 Dextrose 50%-Water Inj 50 Ml Syringe IV 06/14/24 13:07 Q15MIN PRN BG <50 OR BG <70 & pt unresponsive Glucagon 1 mg 05/15/24 13:08 Glucagon Inj 1 Mg Vial IM Q15MIN PRN BG <70, and no IV access Heparin Sodium (Porcine) 5,000 unit 05/16/24 14:00 Heparin Sod Inj 5000 Unit/Ml Vial SC 05/30/24 13:59 Q8HR [facility] Insulin Human Lispro 0 unit 05/15/24 17:00 05/16/24 11:40 Insulin Lispro (Admelog) 1 Unit/0.01 Ml Unit SC 06/14/24 16:59 1 unit AC [facility] Administration Protocol Ondansetron HCl 4 mg 05/15/24 13:08 Ondansetron Inj 2 Mg/Ml Inj 2 Ml IV 06/14/24 13:07 Q6H PRN NAUSEA OR VOMITING Protocol Pantoprazole Sodium 40 mg 05/16/24 09:00 05/16/24 08:06 Pantoprazole 40 Mg Tablet PO 06/15/24 08:59 40 mg QDAY [facility] Administration Sennosides 1 tab 05/15/24 13:08 Senna Tablet PO 06/14/24 13:07 QDAY PRN constipation Protocol Plan 73-year-old female with past medical history of dementia, DM2, and hyperlipidemia was admitted to hospital on 05/15/2024 for stroke rule out with complaints of slurred speech, acute encephalopathy, and weakness. #TIA #Slurred speech #Acute cephalopathy #Generalized weakness ? Patient initially came in with complaints of slurred speech as well as confusion and generalized weakness as per . ? On my assessment patient was already back to her baseline with no weakness or slurred speech appreciated. She is AO x 1 at baseline. ?DDx TIA versus metabolic encephalopathy ?NIHSS score 6 on admission, NIHSS score of ?CTA head and neck and CT head unremarkable -MRI did not show any acute stroke ?Teleneuro consulted and advised DAPT, permissive HTN, and MRI Plan: ?Continue DAPT and atorvastatin -Echo pending ?Neurochecks every 4 hours ?Allow permissive hypertension ?Head of bed elevation to 30 degrees ?Aspiration precautions -Consult in-hospital neurology, appreciate recommendations -Referred to speech and physical therapy #UTI ? Patient's UA was positive for leukocyte esterase ? Given patient's dementia patient cannot provide history if she is having dysuria Plan: ? Rocephin 1 g daily [05/15/2024?05/16/2024] ?Urine cultures pending ? Will continue to monitor #Hx of DM2 ? A1c 7.2 04/2024 Plan: ? ISS ? Accu-Cheks and hypoglycemia protocol ? Will continue to monitor #Hx of dementia ? Will restart patient's quetiapine 50mg BID, donepezil 10 mg qday, and mirtazapine 30mg HS #Hx of hyperlipidemia ? Will continue patient on atorvastatin 40 at bedtime Disposition: Patient admitted to telemetry for stroke R/O, pending Neuro recs, continue DAPT, pending echo. Diet: carb consistent GI prophylaxis: not indicated DVT prophylaxis: Heparin sc Code: Full code Case disclosed with Attending Dr. Lau and my senior Dr. Red PGY3 Chavez Moran PGY1 Attending Provider Attestation/Addendum Face to face evaluation was performed by me. I have personally seen and examined the patient. I discussed the assessment and plan with the entire medicine team. I reviewed available medical records, imaging studies, laboratory results. I agree with the above subjective data, objective findings, assessment and plan except as corrected by me or noted below #TIA #Slurred speech #Acute cephalopathy #Generalized weakness MRI brain asa, neurology consult, stroke workup monitor closely
[2024-05-16] MEDS: MIRTAZAPINE 15 MG TABLET 30 MG PO (20:36)
[2024-05-16] MEDS: ATORVASTATIN CALCIUM 20 MG TABLET 40 MG PO (20:37)
[2024-05-16] MEDS: QUEtiapine FUMARATE 25 MG TABLET 50 MG PO (20:37)
[2024-05-16] MEDS: HYDROcodone/APAP 5/325 TABLET 1 TAB PO (20:42)
[2024-05-16] MEDS: QUEtiapine FUMARATE 25 MG TABLET PO (23:35)
--- NOTE | 2024-05-16 23:50 | ESPR_ITS ---
Documentation for date of: 05/16/24 Subjective Subjective Interval history: Patient was seen in telemetry today with the her family at the bedside. Denies any recurrence of similar symptom or any complaints today. She has very poor oral intake. Exam - Neurology Vital Signs Temp Pulse Resp BP Pulse Ox O2 Del Method 97.0 F 85 16 172/96 H 96 Room Air 05/16/24 20:00 05/16/24 20:00 05/16/24 20:00 05/16/24 20:00 05/16/24 20:00 05/16/24 20:00 Narrative Exam GENERAL APPEARANCE: Well hydrated, well-nourished in no acute distress. HEENT: Normocephalic, atraumatic, extraocular movements intact. Pupils: Equal reacting to light and accommodation NECK: Supple, no JVD or bruits. CARDIOVASULAR: Heart: S1, S2 heard, regular without S3-S4 or murmur no rubs or gallops. LUNGS/CHEST: Clear to auscultation bilaterally. No rails, rhonchi, or wheezing. Normal inspection. ABDOMEN: Soft, nontender, with normal bowel sounds. No pulsatile masses. No rebound, rigidity, or guarding. Normal inspection and palpation. EXTREMITIES: Normal inspection and palpation. No edema, clubbing or cyanosis. SKIN: Warm and dry without rashes. Normal inspection. MUSCULOSKELETAL: No cervical, thoracic, lumbar or midline bony tenderness. Normal inspection. NEURO: Alert, awake and oriented x3. Cranial nerves: II through XII grossly intact. Speech and language: Normal with no dysarthria or dysphasia. Motor system: Tone and bulk: Normal: Strength: 5 out of 5 in all 4 extremities; No pronator drift noted. Deep tendon reflexes: 2+ bilaterally symmetrical. Plantar reflex: Downgoing bilaterally. Sensory system: Intact to all modalities of sensation bilaterally. Coordination: Intact to [id number] and [id number] test bilaterally. No ataxia, no dysmetria, or dysdiadochokinesia noted. No intention tremors noted. Gait: Normal. Toe, heel, tandem walk all are normal. Romberg: Negative. No signs of meningeal irritation noted. PSYCHIATRIC: Normal mood and affect. Objective Labs 05/16/24 05:39 05/16/24 05:39 Labs: Laboratory Results - last 24 hr 02/03/25 05:39 WBC 7.9 RBC 4.04 Hgb 11.6 L Hct 34.8 L MCV 86 MCH 28.7 MCHC 33.3 RDW Std Deviation 44.3 Plt Count 303 Neut % (Auto) 61 Lymph % (Auto) 30 [place] % (Auto) 7 Eos % (Auto) 1 Baso % (Auto) 1 Neut # (Auto) 4.8 Lymph # (Auto) 2.4 [place] # (Auto) 0.5 Eos # (Auto) 0.1 Baso # (Auto) 0.1 Immature Gran # (Auto) 0.01 H Absolute Nucleated RBC 0.00 Immature Gran % 0 Nucleated RBC % 0 Sodium 140 Potassium 3.8 Chloride 102 Carbon Dioxide 27.9 Anion Gap 10 BUN 10 Creatinine 0.7 Estim Creat Clear Calc 80.1 eGFR > 60 BUN/Creatinine Ratio 14 [address]ucose [address] Glu mg/dL 160 H Hemoglobin A1c 7.2 H Calculated Osmolality 281 Calcium 9.2 Corrected Calcium 9.2 Magnesium 2.0 Total Bilirubin 0.4 AST 15 ALT 11 Alkaline Phosphatase 75 Total Protein 6.3 Albumin 4.3 Globulin 2.0 L Albumin/Globulin Ratio 2.2 Triglycerides 137 Cholesterol 156 LDL Cholesterol, Calc 87 HDL Cholesterol 42 Cholesterol/HDL Ratio 3.7 TSH 7.21 H Free T4 1.03 Assessment & Plan Assessment and plan (1) TIA (transient ischemic attack): Status: Acute Assessment and plan: Reassurance given to the patient regarding the negative MRI brain and rest of the workup. Patient is advised to take aspirin 81 mg along with statin and keep the blood sugar under control. (2) Dementia: Status: Acute Assessment and plan: Stable at baseline continue with vascular risk factors control and cognition enhancers therapy.
[2024-05-17] VITALS: BP 146/72; PULSE 64; PULSE 87; RESP 18; TEMP 36.3; O2SAT 94
[2024-05-17] MEDS: hydrOXYzine HCL 25 MG TABLET 12.5 MG PO (02:36)
[2024-05-17 04:00] VITALS: BP 173/82; PULSE 68; PULSE 76; RESP 16; TEMP 36.7; O2SAT 97
[2024-05-17 05:51] VITALS: BMI 28.7
[2024-05-17] MEDS: HEPARIN SOD INJ 5000 UNIT/ML VIAL SC (06:03)
[2024-05-17 06:30] LABS: Basophils # (Auto) 0.1 Thou/mm3 (0.0-0.2); Basophils % (Auto) 1 % (0-2.5); Eosinophils # (Auto) 0.1 Thou/mm3 (0.0-0.5); Eosinophils % (Auto) 1 % (0-10); Hematocrit 35.5 % (36.0-46.0); Hemoglobin 11.7 g/dL (12.0-16.0); Immature Granulocytes % (Auto) 0 % (0-0); Immature Granulocytes Auto 0.02 Thou/mm3 (0.00-0.00); Lymphocytes # (Auto) 2.7 Thou/mm3 (1.0-4.8); Lymphocytes % (Auto) 34 % (10-50); Mean Corpuscular Hemoglobin 28.7 pg (25.0-35.0); Mean Corpuscular Volume 87 fL (80-100); Monocytes # (Auto) 0.6 Thou/mm3 (0.0-0.8); Monocytes % (Auto) 7 % (0-12); Neutrophils # (Auto) 4.5 Thou/mm3 (1.8-7.7); Neutrophils % (Auto) 57 % (37-80); Nucleated Red Blood Cell % 0 /100 WBC (0); Platelet Count 275 Thou/mm3 (140-440); RDW Standard Deviation 43.9 fL (36.4-46.3); Red Blood Count 4.08 Miln/mm3 (4.00-5.20); White Blood Count 7.9 Thou/mm3 (3.6-11.0)
[2024-05-17 06:58] LABS: Alanine Aminotransferase 12 U/L (10-49); Albumin, Serum 4.3 gm/dL (3.4-4.8); Alkaline Phosphatase 72 U/L (46-116); Anion Gap 10 (7-16); Aspartate Amino Transferase 20 U/L (0-34); BUN/Creatinine Ratio 9 Ratio (12-20); Bilirubin,Total 0.5 mg/dL (0.3-1.2); Blood Urea Nitrogen 7 mg/dL (9-23); Calcium 9.4 mg/dL (8.3-10.6); Calcium (Corrected) 9.4 mg/dL (8.5-10.1); Carbon Dioxide 27.6 mMol/L (20.0-31.0); Chloride 103 mMol/L (98-107); Creatinine (Component) 0.8 mg/dL (0.6-1.3); Estimated Creatinine Clearance 70.1 mL/min (>60); Globulin 2.1 gm/dL (2.3-3.5); Glucose 219 mg/dL (74-106); Magnesium 1.5 mg/dL (1.6-2.6); Osmolality,Calculated 286 (275-295); Potassium 4.1 mMol/L (3.4-5.1); Sodium 141 mMol/L (136-145); Total Protein 6.4 gm/dL (5.7-8.2); eGFR > 60 See Note
[2024-05-17] MEDS: INSULIN LISPRO (AdmeLOG) 1 UNIT/0.01 ML UNIT SC (07:26)
[2024-05-17 08:00] VITALS: BP 155/82; PULSE 84; PULSE 93; RESP 18; TEMP 36.6; O2SAT 99
[2024-05-17] MEDS: DONEPEZIL HCL 5 MG TABLET 10 MG PO (08:15)
[2024-05-17] MEDS: CLOPIDOGREL BISULFATE 75 MG TABLET PO (08:15)
[2024-05-17] MEDS: PANTOPRAZOLE 40 MG TABLET PO (08:15)
[2024-05-17] MEDS: Magnesium Sulfate 4 GM Ivpb 4 GM/50 ML BAG IV (08:15)
[2024-05-17] MEDS: QUEtiapine FUMARATE 25 MG TABLET 50 MG PO (08:15)
[2024-05-17] MEDS: ASPIRIN EC 81 MG TABEC PO (08:15)
[2024-05-17 10:14] VITALS: BP 150/81; PULSE 90
[2024-05-17] MEDS: Lisinopril 2.5 MG TABLET 5 MG PO (10:14)
[2024-05-17 11:10] VITALS: BP 154/62; PULSE 59; RESP 18; TEMP 36.7; O2SAT 96
--- NOTE | 2024-05-17 13:34 | PD.RESDS ---
Planned Discharge Date 05/17/24 DS: Providers Provider Date of admission: 05/15/24 10:20 Primary care physician: Emilia Cardona MD Admitting Provider: Greg Cruz MD Attending Provider on Admission: Ashkan Lau MD Consults: 05/15/24 08:28 Consult to Neurology / Tele-Neurology Routine Comment: Consulting Provider: [facility] 05/15/24 13:16 Consult to Neurology / Tele-Neurology Routine Comment: Consulting Provider: Oswald Rajan Referral Physical Therapy Routine Comment: Physician Instructions: Referral Speech Therapy Routine Comment: Attending Provider on DC: Ashkan Lau MD Discharging Provider: Askhan Lau MD DS: Diagnosis Problem List Completed Was Problem List Reviewed/Reconciled?: Yes Hospital Course Hospital Course Hospital course: 73-year-old female with past medical history of dementia, DM2, and hyperlipidemia was admitted to hospital on 05/15/2024 for stroke rule out with complaints of slurred speech, acute encephalopathy, and weakness. Came in to the ED with complaints of slurred speech, altered mental status, and weakness. Initially patient came in hypertensive, tachypneic, and afebrile. Initial labs were relevant for low hemoglobin (11.5), hypomagnesemia (1.4), and UA was positive for leukocytes esterase, but no bacteria. Initial imaging included EKG which showed sinus tachycardia, head CT which was unremarkable, and head CTA which was also unremarkable. In the ED stroke alert was called and teleneurology recommended to place patient on DAPT and to allow permissive hypertension and to follow-up with MRI as per stroke protocol. When patient was being admitted to the hospital on assessment she was already progressing back to her baseline as she did not have any focal neurological deficits nor any sensory deficits. Throughout the hospital stay patient remained stable and as per was at bedside he stated that patient was already back at baseline. Patient's echo did show EF of 50% with negative bubble study and brain MRI with MRA was significant only for moderate chronic microvascular white matter changes. Patient remained stable throughout her hospital stay and as per neurology patient was stable enough to be discharged home. At the time of discharge patient was stable enough to be discharged home. Discharge plan: Please follow up with your primary care physician in 1 week after discharge. You have been started on aspirin 81mg daily and atorvastatin 40mg at bedtime daily You have been started on lisinopril 5 mg daily for the blood pressure. Resume metformin tomorrow. Continue glyburide evening dose today. Continue taking all home medications as prescribed Please come back to the ER if symptoms persist or worsen Problems: #TIA #Slurred speech, resolved #Acute cephalopathy, resolved #Generalized weakness, resolved #UTI #Hx of DM2 #Hx of dementia #Hx of hyperlipidemia Case disclosed with Attending Dr. Lau and My senior Dr. Red PGY3. Chavez Moran PGY1 Status at Discharge Overall status at discharge: patient is progressing back to baseline Time Spent with Patient Time attestation: Total time spent providing and/or coordinating discharge services:>35 min Quality: Stroke Pt Provided Written Stroke Discharge Instructions: Yes Exam Vital Signs Temp Pulse Resp BP Pulse Ox O2 Del Method 98.1 F 59 L 18 154/62 H 96 Room Air 05/17/24 11:10 05/17/24 11:10 05/17/24 11:10 05/17/24 11:10 05/17/24 11:10 05/17/24 11:10 Narrative Exam General: A/O x1 (only to time (baseline)), no acute distress, well-nourished, well-developed Eyes: PERRL, EOMI. Anicteric, vision grossly intact. Ears: No ear pain, no ear discharge, Hearing grossly intact. Nose: No nasal discharge. Mouth/Throat: Dry mucous membranes, no redness, no lesions. Neck: Neck supple, non-tender, no cervical lymphadenopathy. Lungs: Clear LYUBOV to auscultation and percussion, No accessory muscle use. Cardio: Normal S1/S2, regular rhythm, no murmurs, no JVD Abdomen: Soft, non-tender, no palpable masses, peristalsis present, no guarding or rebound. Extremities: Symmetrical, no significant deformities, no peripheral edema , non-tender, peripheral pulses presents. Skin: No rashes, no lesions, warm to touch. Neuro: No focal neurological deficits. motor and sensory intact. Psych: appropriate affect Discharge Plan Plan Patient Disposition: HOME (Self Care) Disposition Comment: Tele Care Plan Goals: Please follow up with your primary care physician in 1 week after discharge. You have been started on aspirin 81mg daily and atorvastatin 40mg at bedtime daily You have been started on lisinopril 5 mg daily for the blood pressure. Resume metformin tomorrow. Continue glyburide evening dose today. Continue taking all home medications as prescribed Please come back to the ER if symptoms persist or worsen Prescriptions/Referrals Prescriptions/Med Rec: New aspirin [Ecotrin Low Strength] 81 mg Tablet,Delayed Release (Dr/Ec) 81 mg PO QDAY 30 Days Qty: 30 0RF atorvastatin 40 mg tablet 40 mg PO HS 30 Days Qty: 30 0RF quetiapine 50 mg tablet 50 mg PO BID 30 Days Qty: 60 0RF lisinopril 5 mg tablet 5 mg PO QDAY 30 Days Qty: 30 0RF glyburide 5 mg tablet 5 mg PO TID Qty: 90 0RF Continued metformin [Glucophage] 1,000 MG tablet 1,000 mg PO BID Qty: 0 mirtazapine 30 mg tablet 30 mg PO QDAY donepezil 10 mg tablet 10 mg PO QDAY Discontinued pravastatin [Pravachol] 40 MG tablet 20 mg PO HS Qty: 0 quetiapine 50 mg tablet 100 mg PO Q6H Patient Comments: TAKE ONE TABLET (50mg) BY MOUTH TWICE DAILY FOR dementia glyburide 5 mg tablet 5 mg PO TID No Action lorazepam [Lorazepam Intensol] 2 mg/mL concentrate 0.5 mg PO PRN PRN (Reason: agitation) Patient Comments: give 0.5mg(0.25ml) every 6 hours as needed for anxiety/agitation Referrals: Emilia Cardona MD [Primary Care Provider] - Patient/Caregiver Discharge Instructions Other Discharge Activity Instructions:: Please follow up with your primary care physician in 1 week after discharge. You have been started on aspirin 81mg daily and atorvastatin 40mg at bedtime daily You have been started on lisinopril 5 mg daily for the blood pressure. Resume metformin tomorrow. Continue glyburide evening dose today. Continue taking all home medications as prescribed Please come back to the ER if symptoms persist or worsen Education Materials: Symptoms of Stroke, Risk Factors for Stroke Print Language: Mohawk Stand Alone Forms: [employer]ane Award Info., Patient Portal Info Letter Discharge Order Discharge Orders: Discharge (Routine); Ordered 05/17/24 Ordered By: Chavez Moran Quality Discharge Quality Measures VTE prophylaxis Attestestation Attestation Face to face evaluation was performed by me. I have personally seen and examined the patient. I discussed the assessment and plan with the entire medicine team. I reviewed available medical records, imaging studies, laboratory results. I agree with the above subjective data, objective findings, assessment and plan except as corrected by me or noted below #TIA #Slurred speech #Acute encephalopathy #Generalized weakness MRI brain w/o- no stroke -so this is likely TIA Neurology ok with DC, asa and atorvastatin 40 upon dc fu with PCP
== END 2024-05-17 11:10 | disposition home or self-care (01) | DRG 69 ==
LOC: SERX 09:10 → SERHOLD 10:45 → S2NX 16:00
PROVIDERS: Admitting Provider Student in an Organized Health Care Education/Training Program; Emergency Provider Emergency Medicine; PCP Family Medicine; Visit Provider Internal Medicine
DX: G45.9 Transient cerebral ischemic attack, unspecified (principal); G93.49 Other encephalopathy; N39.0 Urinary tract infection, site not specified; R47.01 Aphasia; R47.1 Dysarthria and anarthria; I10 Essential (primary) hypertension; E11.9 Type 2 diabetes mellitus without complications; E03.9 Hypothyroidism, unspecified; R29.810 Facial weakness; E83.42 Hypomagnesemia; R53.1 Weakness; F03.90 Unspecified dementia, unspecified severity, without behavioral disturbance, psychotic disturbance, mood disturbance, and anxiety; E78.5 Hyperlipidemia, unspecified; Z79.84 Long term (current) use of oral hypoglycemic drugs; Z79.899 Other long term (current) drug therapy; Z88.5 Allergy status to narcotic agent; Z88.0 Allergy status to penicillin
CPT/HCPCS: 36415; 70450; 70496; 70498; 70544; 80053; 80061; 80307; 81001; 83036; 83735; 84439; 84443; 84484; 85025; 85610; 85730; 87086; 92610; 93306; 97162; A4649; J0696; J1643; J1815; J3475; J7030; Q9967; A9270

== ENCOUNTER → 2024-10-06 | Outpatient (CLI) | payer MEDICARE, OTHER, SELFPAY ==
--- NOTE | 2024-10-06 10:36 | XR_ITS ---
Examination: Ribs, right, with PA upright chest, 3-D views Technique: Chest PA, RIBS AP, RPO, 3 views Exam date and time: October 06, 2024 1119 hours INDICATIONS: Patient fell 6 days ago with injury of the right chest, right rib pain Findings: Normal heart size No pneumothorax Moderate osteopenia No acute rib fractures IMPRESSION: No pneumothorax No acute rib fractures
--- NOTE | 2024-10-06 10:36 | XR_ITS ---
Examination: Wrist, left 3 views Technique: Wrist AP, oblique, lateral 3 views Date and time of exam: October 06, 2024 1119 hours INDICATIONS: Patient fell 6 days ago with injury of the wrist, wrist pain. FINDINGS: Severe osteopenia No acute rib fracture Carpal bones intact IMPRESSION: No acute fracture Given the severe osteopenia, repeat this study short-term as clinically warranted
--- NOTE | 2024-10-06 10:36 | XR_ITS ---
Examination: Knee, right , 3 views Technique: Knee AP, lateral, oblique 3 views Date and time of exam: October 06, 2024 1119 hours INDICATIONS: Patient fell 6 days ago with injury to the knee, knee pain. FINDINGS: Severe osteopenia. No fracture or dislocation. Advanced tricompartment osteoarthritis IMPRESSION: No fracture or dislocation
== END | disposition home or self-care (01) ==
PROVIDERS: PCP Family Medicine; Referring Provider Registered Nurse; Visit Provider Registered Nurse
DX: M85.88 Other specified disorders of bone density and structure, other site (principal); S89.91XA Unspecified injury of right lower leg, initial encounter; S29.9XXA Unspecified injury of thorax, initial encounter; S69.92XA Unspecified injury of left wrist, hand and finger(s), initial encounter; W19.XXXA Unspecified fall, initial encounter
CPT/HCPCS: 71101; 73110; 73562

== ENCOUNTER 2024-10-18 10:11 | Inpatient (IN) | payer MEDICARE, OTHER, SELFPAY ==
[2024-10-18] VITALS (9 sets, daily range): BP systolic 145–186; BP diastolic 79–104; PULSE 61–100; RESP 10–18; TEMP 35.9–36.8; O2SAT 96–100; BMI 31.6
--- NOTE | 2024-10-18 10:37 | EKG_ITS ---
[facility] Test Date: 2024-10-18 Pat Name: BRITANY FAGAN Department: Room: - Gender: Female Farmhand: : 1950 Requested By: Rafy Hampton Order Number: [id number] Reading MD: Rafy Hampton Measurements Intervals [place] Rate: 62 P: 46 WV: 179 QRS: -54 QRSD: 113 T: -17 QT: 408 QTc: 417 Interpretive Statements SINUS RHYTHM LEFT ANTERIOR FASCICULAR BLOCK [QRS AXIS <= -45, QR IN I, RS IN II] MINIMAL VOLTAGE CRITERIA FOR LVH, CONSIDER NORMAL VARIANT [MEETS CRITERIA IN ONE OF: R(aVL), S(V1), R(V5), R(V5/V6)+S(V1)] POSSIBLE ANTERIOR MYOCARDIAL INFARCTION , PROBABLY OLD [30 ms Q WAVE IN V3/V4, OR R < 0.2 mV IN V4] Compared to ECG 04/12/2023 09:41:17 Myocardial infarct finding now present Sinus tachycardia no longer present Right bundle-branch block no longer present /store/S0/[id number].pdf
--- NOTE | 2024-10-18 10:39 | XR_ITS ---
Examination: CT brain head without contrast. 2-D sagittal coronal reconstructions Date and time of exam:October 18, 2024 1117 hours Comparison May 15, 2024 INDICATIONS: Altered mental status today CTDI: vol (mGy):44.8 DLP: (mGycm):887 Technique: Multiple CT axial sections of the brain have been obtained, 5 mm slice thickness. Contrast has not been administered. 2-D sagittal, coronal reconstructions have been obtained Low dose protocols were performed. One or more of the following dose reduction techniques were used; automated exposure control, adjustment of the mA and/or KV according to patient size, use of iterative reconstruction technique. Findings: No significant ventricular enlargement. Intra-axial or extra-axial hemorrhage density is not seen. No mass effect or midline shift Basal cisterns are not remarkable. Fourth ventricle is midline. Cranial vault intact. Impression: Negative for acute hemorrhage, mass effect or midline shift Advise clinical correlation follow-up accordingly
--- NOTE | 2024-10-18 10:43 | XR_ITS ---
Examination: CT chest, without intravenous contrast. CT abdomen, without intravenous contrast. CT pelvis, without intravenous contrast. 2-D sagittal and coronal reconstructions. 3-D reconstructions. Date and time of exam:October 18, 2024 1122 hours INDICATIONS: Generalized chest and abdominal pain today CTDI vol (mgy) 11.9 DLP (MGycm)884 Technique: Multiple CT images, 3.0 mm slice thickness, obtained chest, abdomen, pelvis, with the high-resolution 64 slice scanner.. Sagittal and coronal 2-D reconstructions are obtained. 3-D reconstructions Low dose protocols were performed. One or more of the following dose reduction techniques were used; automated exposure control, adjustment of the mA and/or KV according to patient size, use of iterative reconstruction technique. Findings: No thoracic aortic aneurysm dilatation Pulmonary artery segments are not enlarged. No paratracheal tracheobronchial or bronchopulmonary adenopathy 5 mm pulmonary nodule left lower lobe axial image 165 Mild enlargement cardiac contour with moderate vascular congestion Pericardial effusion inferiorly measures up to 17 mm No focal liver or splenic lesion Contracted gallbladder with gallstones No pancreatic or adrenal mass No renal or ureteral calculi, no hydronephrosis Aorta normal size Normal appendix No bowel obstruction Colonic diverticulosis, no diverticulitis. Atrophic uterus No bladder mass or bladder calculi Prominent osteopenia Moderate disc narrowing L5-S1 IMPRESSION: 5 mm noncalcified pulmonary nodule left lower lobe, with this study as baseline recommend 6 month follow-up CT chest without contrast Mild enlargement cardiac contour, moderate vascular congestion No pneumonia Pericardial effusion measuring up to 17 mm Cholelithiasis, recommend hepatobiliary sonography follow-up Normal appendix No bowel obstruction or diverticulitis
--- NOTE | 2024-10-18 10:45 | PD.EDADULT ---
ED General RME/HPI General Chief complaint: Altered Mental Status Stated complaint: AMS Time Seen by Provider: 10/18/24 10:36 Arrival date/time: 10/18/24 10:11 Related Data Home Medications ?Medication ?Instructions ?Recorded ?Confirmed metformin 1,000 mg tablet 1,000 mg PO BID #0 tabs 09/06/14 10/18/24 (Glucophage) donepezil 10 mg tablet 10 mg PO QDAY 05/15/24 10/18/24 lorazepam 2 mg/mL oral concentrate 0.5 mg PO PRN PRN agitation 05/15/24 10/18/24 (Lorazepam Intensol) mirtazapine 30 mg tablet 30 mg PO QDAY SLEEP 05/15/24 10/18/24 aspirin 81 mg capsule 81 mg PO QDAY 10/18/24 10/18/24 quetiapine 100 mg tablet (Seroquel) 100 mg PO BID 10/18/24 10/18/24 Previous Rx's ?Medication ?Instructions ?Recorded glyburide 5 mg tablet 5 mg PO TID #90 tabs 05/17/24 Allergies Allergy/AdvReac Type Severity Reaction Status Date / Time Penicillins Allergy Mild Hives Verified 10/18/24 10:43 codeine Allergy Unknown Verified 10/18/24 10:43 Review of Systems Review of Systems Systems Reviewed: All systems reviewed, normal except as documented ED Exam Narrative Physical exam: Physical Exam GENERAL: NAD, HEENT: Moist mucosa. Eyes open, symmetrical, & clear CARDIO: Heart RRR, no obvious murmurs PULM: No noted coughing/dyspnea CTA B/L, no R/W/R GI: Abdomen soft, nondistended, RUQ pain on palpation. BSx4 SKIN/MSK/EXT: No wounds/rashes/edema/amputations, no pain on palpation. Pedal pulses present B/L NEURO: equal strength and sensation on all 4 extremities. Course Quality Measures none Orders Category Date Time Status Bedside COVID-19 Antigen Test NOW Care 10/18/24 10:53 Completed Bedside Influenza A&B Antigen Test NOW Care 10/18/24 10:53 Completed Student Finance Specialist Q4H START 00 Care 10/18/24 10:37 Completed Continuous Pulse Oximetry NOW Care 10/18/24 10:37 Completed EKG (ED ONLY) *Do not use* NOW Care 10/18/24 10:38 Completed In and Out Catheter X1 Care 10/18/24 10:37 Completed Insert IV NOW Care 10/18/24 10:38 Completed NPO NOW Care 10/18/24 10:38 Completed Urinary Catheter NOW Care 10/18/24 10:[address] chest abdomen pelvis wo Stat Exams 10/18/24 10:[address] head/brain wo con Stat Exams 10/18/24 10:39 Completed EKG (ED Only) Stat Exams 10/18/24 10:37 Draft US gall bladder Stat Exams 10/18/24 11:59 Completed Acetaminophen Stat Lab 10/18/24 10:50 Completed Alcohol, Blood Medical Stat Lab 10/18/24 10:50 Completed Ammonia Stat Lab 10/18/24 10:50 Completed Arterial Blood Gas Stat Lab 10/18/24 10:39 Stop Req Blood Culture (Lab) Stat Lab 10/18/24 11:40 Results CBC Stat Lab 10/18/24 10:50 Completed Comprehensive Metabolic Panel Stat Lab 10/18/24 10:50 Completed Drug Screen,Urine Stat Lab 10/18/24 12:57 Completed Lactic Acid [Lactate (Lactic Acid)] Stat Lab 10/18/24 11:40 Completed Magnesium Stat Lab 10/18/24 10:50 Completed Procalcitonin Stat Lab 10/18/24 11:40 Completed Thyroid Stimulating Hormone Stat Lab 10/18/24 10:50 Completed Troponin I Stat Lab 10/18/24 10:50 Completed Urinalysis Stat Lab 10/18/24 12:57 Completed Urine Culture Stat Lab 10/18/24 12:57 Received VBG [Venous Blood Gas] Stat Lab 10/18/24 16:07 Completed Magnesium Sulfate 4 GM Ivpb [Magnesium Sulfate Ivpb] Med 10/18/24 12:08 Discontinued 4 gm in 50 ml IV X1 Sodium Chloride 0.9% 500 ml [Ns] 500 ml Med 10/18/24 10:42 Discontinued IV 500 mls/hr Oxygen Delivery NOW RT 10/18/24 10:38 Completed Vital Signs Vital signs: Vital Signs Temperature 97.5 F 10/18/24 10:28 Pulse Rate 71 10/18/24 10:28 Respiratory Rate 18 10/18/24 10:28 Blood Pressure 145/79 H 10/18/24 10:28 Pulse Oximetry (%) 100 10/18/24 10:28 Oxygen Delivery Method Nasal Cannula 10/18/24 10:28 Oxygen Flow Rate 4 10/18/24 10:28 Discharge Plan Plan Patient Disposition: Admit Acute Care w/in Hospital Problem List Clinical Impression: Cholecystitis MDM Narrative MDM hospital course: 74y/o F with PMHx of hx of TIA, dementia, DM2, and hyperlipidemia who was brought to the ED due to altered mental status. Per EMS, noticed patient was acting more confused than usual and got more weak. She was standing from [facility] bathroom where she almost lost her balance and helped her up after having a BM. Per chart review baseline seems to be AAOx1. Spoke to the and he stated patient was feeling weaker today and had some abdominal pain and was having trouble ambulating had to use the wall to support herself, new baseline is with a walker as recent as 3-4 weeks ago. 1048: Labs and imaging studies ordered. 1410: US gallbladder shows acute calculus cholecystitis, CBC wnl, CMP unremarkable UA negative for UTI 1458: spoke to Dr. Hernandes, recommend Hospitalist to admit the patient 1500: Spoke to IM team will review case and see a patient prior to admission decision. Clinical Information Provided by EMS Medication Administration(s) Medication Administration History Acetaminophen (Acetaminophen 325 Mg Tablet) 650 mg PO Q6H PRN PRN Reason: Mild pain 1-3 or fever >100.3 Stop: 11/17/24 15:57 Hydrocodone Bitart/Acetaminophen (Hydrocodone/Apap 5/325 Tablet) 1 tab PO Q8HR PRN PRN Reason: PAIN SCALE 4-10(Mod-Sev Stop: 10/23/24 16:32 Atorvastatin Calcium (Atorvastatin Calcium 20 Mg Tablet) 40 mg PO HS VILMA Stop: 11/17/24 20:59 Last Admin: 10/18/24 20:50 Dose: 40 mg Documented By: CG Dextrose (Dextrose 50%-Water Inj 50 Ml Syringe) 25 ml IV Q15MIN PRN PRN Reason: BG 50-70 responsive npo pt Stop: 11/17/24 16:04 Dextrose (Dextrose 50%-Water Inj 50 Ml Syringe) 50 ml IV Q15MIN PRN PRN Reason: BG <50 OR BG <70 & pt unresponsive Stop: 11/17/24 16:04 Docusate Sodium (Docusate Sod 100 Mg Capsule) 100 mg PO BID VILMA; Protocol Stop: 11/18/24 20:59 Donepezil HCl (Donepezil Hcl 5 Mg Tablet) 10 mg PO QDAY [facility] Stop: 11/18/24 08:59 Last Admin: 10/19/24 08:42 Dose: 10 mg Documented By: KARLENE Famotidine (Famotidine 20 Mg Tablet) 20 mg PO BID [facility] Stop: 11/17/24 20:59 Last Admin: 10/19/24 08:42 Dose: 20 mg Documented By: Admin: 10/18/24 20:50 Dose: 20 mg Documented By: JAVY Glucagon (Glucagon Inj 1 Mg Vial) 1 mg IM Q15MIN PRN PRN Reason: BG <70, and no IV access Heparin Sodium (Porcine) (Heparin Sod Inj 5000 Unit/Ml Vial) 5,000 unit SC Q12HR VILMA Stop: 11/01/24 20:59 Last Admin: 10/19/24 10:05 Dose: Not Given Documented By: KARLENE Non-Admin Reason: Held for Procedure Admin: 10/18/24 20:45 Dose: 5,000 unit Documented By: JAVY Co-signed By: ERMELINDA Hydralazine HCl (Hydralazine Inj 20 Mg/Ml Vial) 10 mg IVP Q6HR PRN PRN Reason: Hypertension Stop: 11/17/24 16:22 Insulin Human Lispro (Insulin Lispro (Admelog) 1 Unit/0.01 Ml Unit) 0 unit SC ACHS [facility]; Protocol Stop: 11/17/24 16:59 Last Admin: 10/19/24 12:23 Dose: 5 unit Documented By: KARLENE Co-signed By: SARI Admin: 10/19/24 07:47 Dose: Not Given Documented By: KARLENE Non-Admin Reason: NPO Admin: 10/18/24 20:44 Dose: 3 unit Documented By: JAVY Co-signed By: ERMELINDA Admin: 10/18/24 17:51 Dose: 3 unit Documented By: OTF Co-signed By: ROSALIND Lisinopril (Lisinopril 2.5 Mg Tablet) 5 mg PO QDAY [facility] Stop: 11/17/24 16:44 Last Admin: 10/19/24 08:42 Dose: 5 mg Documented By: Admin: 10/18/24 17:50 Dose: 5 mg Documented By: OTF Mirtazapine (Mirtazapine 15 Mg Tablet) 15 mg PO HS VILMA Stop: 11/17/24 20:59 Last Admin: 10/18/24 20:50 Dose: 15 mg Documented By: JAVY Ondansetron HCl (Ondansetron Inj 2 Mg/Ml Inj 2 Ml) 4 mg IVP Q6H PRN; Protocol PRN Reason: NAUSEA OR VOMITING Stop: 11/17/24 15:57 Quetiapine Fumarate (Quetiapine Fumarate 100 Mg Tablet) 100 mg PO BID VILMA Stop: 11/17/24 20:59 Last Admin: 10/19/24 08:42 Dose: 100 mg Documented By: Admin: 10/18/24 20:50 Dose: 100 mg Documented By: JAVY Sennosides (Senna Tablet) 1 tab PO QDAY [facility]; Protocol Stop: 11/17/24 15:59 Last Admin: 10/19/24 10:18 Dose: Not Given Documented By: KARLENE Non-Admin Reason: Held for Procedure Admin: 10/18/24 17:50 Dose: 1 tab Documented By: OTF Discontinued Medications Amlodipine Besylate (Amlodipine Besylate 2.5 Mg Tablet) 2.5 mg PO QDAY [facility] Stop: 11/17/24 16:29 Bupivacaine HCl (Bupivacaine Mpf 0.5% 30 Ml Vial) Confirm Administered Dose 30 ml .ROUTE .STK-MED ONE Stop: 10/19/24 13:23 Cefoxitin Sodium (Cefoxitin Sod Inj 1 Gm Vial) Confirm Administered Dose 2 gm .ROUTE .STK-MED ONE Stop: 10/19/24 13:39 Cefoxitin Sodium (Cefoxitin Sod Inj 1 Gm Vial) Confirm Administered Dose 1 gm .ROUTE .STK-MED ONE Stop: 10/19/24 14:47 Dexamethasone Sodium Phosphate (Dexamethasone Sod Phos Inj 10 Mg/Ml Vial) Confirm Administered Dose 10 mg .ROUTE .STK-MED ONE Stop: 10/19/24 13:39 Diphenhydramine HCl (Diphenhydramine Inj 50 Mg/Ml Vial) 12.5 mg IVP X1 ONE Stop: 10/18/24 22:59 Last Admin: 10/18/24 23:13 Dose: 12.5 mg Documented By: JAVY Fentanyl Citrate (Fentanyl Cit Inj 50 Mcg/Ml Amp 2ml) Confirm Administered Dose 100 mcg .ROUTE .STK-MED ONE Stop: 10/19/24 13:38 Fentanyl Citrate (Fentanyl Cit Inj 50 Mcg/Ml Amp 2ml) Confirm Administered Dose 100 mcg .ROUTE .STK-MED ONE Stop: 10/19/24 14:36 Fentanyl Citrate (Fentanyl Cit Inj 50 Mcg/Ml Amp 2ml) 25 mcg IVP Q5M PRN; Protocol PRN Reason: PAIN SCALE 7-10 (Severe Stop: 10/19/24 16:46 Fentanyl Citrate (Fentanyl Cit Inj 50 Mcg/Ml Amp 2ml) 25 mcg IVP Q5M PRN; Protocol PRN Reason: PAIN SCALE 4-6 (Moderate Stop: 10/19/24 16:46 Fentanyl Citrate (Fentanyl Cit Inj 50 Mcg/Ml Amp 2ml) 25 mcg IVP Q5M PRN; Protocol PRN Reason: PAIN SCALE 1-3 (mild Stop: 10/19/24 16:47 Sodium Chloride (Ns) 500 mls @ 500 mls/hr IV .Q1H ONE Stop: 10/18/24 11:41 Last Infusion: 10/18/24 12:10 Dose: Infused Documented By: Admin: 10/18/24 10:57 Dose: 500 mls/hr Documented By: ABRAN Magnesium Sulfate (Magnesium Sulfate Ivpb) 4 gm in 50 mls @ 12.5 mls/hr IV X1 ONE Stop: 10/18/24 16:07 Last Admin: 10/18/24 14:48 Dose: 12.5 mls/hr Documented By: KRISTAN Piperacillin/Tazobactam/Dextrose (Zosyn) 3.375 gm in 50 mls @ 12.5 mls/hr IV Q8HR VILMA Stop: 10/25/24 21:59 Last Admin: 10/19/24 13:45 Dose: 12.5 mls/hr Documented By: [email or web address] Infusion: 10/19/24 09:20 Dose: Infused Documented By: [email or web address] Admin: 10/19/24 05:20 Dose: 12.5 mls/hr Documented By: Infusion: 10/19/24 01:57 Dose: Infused Documented By: Admin: 10/18/24 21:57 Dose: 12.5 mls/hr Documented By: JAVY Piperacillin/Tazobactam/Dextrose (Zosyn) 3.375 gm in 50 mls @ 100 mls/hr IV X1 ONE Stop: 10/18/24 17:29 Last Admin: 10/18/24 17:49 Dose: 100 mls/hr Documented By: OTF Potassium Chloride/Sodium Chloride (Kcl 20 Meq/L In 1/2ns) 20 meq in 1,000 mls @ 70 mls/hr IV .[id number] VILMA Stop: 10/21/24 03:11 Last Admin: 10/19/24 10:09 Dose: 70 mls/hr Documented By: KARLENE Acetaminophen (Ofirmev Inj) Confirm Administered Dose 100 mls @ ud IV .STK-MED ONE Stop: 10/19/24 13:53 Insulin Glargine (Insulin Glargine (Lantus) 5 Unit/0.05 Ml (Per 5 Units)) 5 unit SC X1 ONE Stop: 10/19/24 09:07 Last Admin: 10/19/24 10:08 Dose: 5 unit Documented By: KARLENE Co-signed By: SARI Ketorolac Tromethamine (Ketorolac Inj 30 Mg/Ml Vial) Confirm Administered Dose 30 mg .ROUTE .STK-MED ONE Stop: 10/19/24 14:44 Lorazepam (Lorazepam 0.5 Mg Tablet) 0.5 mg PO X1 ONE Stop: 10/19/24 02:52 Last Admin: 10/19/24 03:30 Dose: 0.5 mg Documented By: JAVY Metoclopramide HCl (Metoclopramide Inj 5 Mg/Ml Vial 2 Ml) Confirm Administered Dose 10 mg .ROUTE .STK-MED ONE Stop: 10/19/24 13:39 Midazolam HCl (Midazolam Inj 1 Mg/Ml Vial 2 Ml) Confirm Administered Dose 2 mg .ROUTE .STK-MED ONE Stop: 10/19/24 13:39 Ondansetron HCl (Ondansetron Inj 2 Mg/Ml Inj 2 Ml) 4 mg IVP X1 ONE Stop: 10/19/24 14:47 Propofol (Propofol Inj 10 Mg/Ml Vial 20 Ml) Confirm Administered Dose 200 mg IV .STK-MED ONE Stop: 10/19/24 13:39 Rocuronium [place] (Rocuronium Inj 10 Mg/Ml Vial 10 Ml) Confirm Administered Dose 100 mg .ROUTE .STK-MED ONE Stop: 10/19/24 13:39 Sugammadex Sodium (Sugammadex Inj 100 Mg/Ml 2ml Vial) Confirm Administered Dose 200 mg .ROUTE .STK-MED ONE Stop: 10/19/24 14:47
[2024-10-18] MEDS: SODIUM CHLORIDE 0.9% 500 ML 500 ML IV (10:57)
[2024-10-18 11:38] LABS: Basophils # (Auto) 0.1 Thou/mm3 (0.0-0.2); Basophils % (Auto) 1 % (0-2.5); Eosinophils # (Auto) 0.3 Thou/mm3 (0.0-0.5); Eosinophils % (Auto) 3 % (0-10); Hematocrit 37.9 % (36.0-46.0); Hemoglobin 12.5 g/dL (12.0-16.0); Immature Granulocytes Auto 0.06 Thou/mm3 (0.00-0.00); Lymphocytes # (Auto) 1.4 Thou/mm3 (1.0-4.8); Lymphocytes % (Auto) 18 % (10-50); Mean Corpuscular HGB Conc 33.0 g/dl (31.0-37.0); Mean Corpuscular Hemoglobin 28.0 pg (25.0-35.0); Mean Corpuscular Volume 85 fL (80-100); Monocytes # (Auto) 0.5 Thou/mm3 (0.0-0.8); Monocytes % (Auto) 7 % (0-12); Neutrophils # (Auto) 5.4 Thou/mm3 (1.8-7.7); Neutrophils % (Auto) 70 % (37-80); Nucleated Red Blood Cell # 0.00 Thou/mm3 (0.00-0.00); Nucleated Red Blood Cell % 0 /100 WBC (0); Platelet Count 312 Thou/mm3 (140-440); RDW Standard Deviation 43.7 fL (36.4-46.3); Red Blood Count 4.46 Miln/mm3 (4.00-5.20); White Blood Count 7.7 Thou/mm3 (3.6-11.0)
--- NOTE | 2024-10-18 11:59 | XR_ITS ---
Examination: Abdomen sonogram, Limited Date and time of exam: October 18, 2024 1315 hours INDICATIONS: Onset abdominal pain today Technique: Real-time willis scale transabdominal sonographic images of the upper abdomen obtained. Findings: Multiple gallstones Gallbladder wall is contracted, gallbladder wall is thickened 0.7 cm with edema Common bile duct 0.6 cm Pancreatic head 2.4 cm Liver 18.0 cm lobular contour fatty infiltration Normal hepatopedal portal venous flow Patent IVC IMPRESSION: Findings most consistent with acute calculus cholecystitis, consider MRCP follow-up as clinically warranted
[2024-10-18 12:00] LABS: Acetaminophen < 2.0 mcg/mL (10.0-20.0); Alanine Aminotransferase 11 U/L (10-49); Albumin, Serum 4.6 gm/dL (3.4-4.8); Albumin/Globulin Ratio 2.0 (1.2-2.2); Alcohol, Blood Medical < 10.0 mg/dL (0-10.0); Alkaline Phosphatase 174 U/L (46-116); Ammonia < 10 uMol/L (11-32); Anion Gap 11 (7-16); Aspartate Amino Transferase 14 U/L (0-34); BUN/Creatinine Ratio 7 Ratio (12-20); Bilirubin,Total 0.6 mg/dL (0.3-1.2); Blood Urea Nitrogen 7 mg/dL (9-23); Calcium 9.1 mg/dL (8.3-10.6); Calcium (Corrected) 9.1 mg/dL (8.5-10.1); Carbon Dioxide 26.8 mMol/L (20.0-31.0); Chloride 104 mMol/L (98-107); Creatinine (Component) 1.0 mg/dL (0.6-1.3); Estimated Creatinine Clearance 51.9 mL/min (>60); Globulin 2.3 gm/dL (2.3-3.5); Glucose 295 mg/dL (74-106); Magnesium 1.2 mg/dL (1.6-2.6); Osmolality,Calculated 292 (275-295); Potassium 4.3 mMol/L (3.4-5.1); Sodium 142 mMol/L (136-145); Thyroid Stimulating Hormone 2.25 uIU/mL (0.55-4.78); Total Protein 6.9 gm/dL (5.7-8.2); Troponin I < 0.020 ng/mL (0.0-0.045); eGFR 58 See Note
[2024-10-18 12:00] LABS: Lactate (Lactic Acid) 1.5 mMol/L (0.4-2.0)
[2024-10-18 12:33] LABS: Procalcitonin 0.05 ng/ml (0.0-0.49)
[2024-10-18 13:02] LABS: Collection Type, Urine Clean Catch; RBC,Urine 0 /hpf (0-3)
[2024-10-18 14:02] LABS: Amphetamine/Methamp Scrn,U Negative (Negative); Barbiturate Screen,Urine Negative (Negative); Benzodiazepines Screen,Urine Negative (Negative); Benzoylecgonine Screen, Ur Negative (Negative); Fentanyl Screen,Urine Negative (Negative); Opiate Screen,Urine Negative (Negative); THC Screen,Urine Negative (Negative)
[2024-10-18 14:13] LABS: Bilirubin,Urine Negative (Negative); Blood,Urine Negative (Negative); Clarity,Urine Clear (Clear/Hazy); Color,Urine Lt-Yellow (Lt Yel-Yel); Glucose, Urine 3+ (Negative); Ketones,Urine Negative (Negative); Leukocyte Esterase,Urine Negative (Negative); Nitrite,Urine Negative (Negative); PH,Urine 5.5 (5.0-7.0); Protein,Urine Negative (Neg - Trace); Specific Gravity,Urine 1.008 (1.001-1.035); Squamous Epithelial Cell,Urine 3 /hpf (0-5); Urobilinogen,Urine Negative mg/dL (0.0-1.0); WBC,Urine 1 /hpf (0-5)
[2024-10-18] MEDS: Magnesium Sulfate 4 GM Ivpb 4 GM/50 ML BAG IV (14:48)
--- NOTE | 2024-10-18 15:16 | ESHP_ITS ---
<Statement entered by Irineo Graham MD - 10/22/24 11:47> I reviewed above note and agree with findings and plans. I have also personally examined the patient with medicine team and went over assessment and plan with medical team including merchandising internship and resident physician. Documentation for date of: 10/18/24 --------- Patient has a past medical history of diabetes mellitus type 2 [id number], hyperlipidemia, and TIA who was admitted for acute cholecystitis pending surgery and initial concern for altered mental status which had resolved prior to admission. Acute symptoms cholecystitis noted on ultrasound gallbladder and started on Zosyn. T. bili within normal limits, AST within normal limits and ALT within normal limits mild elevation in alkaline phosphatase 174. Patient complaining of right upper quadrant pain. Hyperglycemia noted, patient started on sliding scale, and A1c obtained for a.m. draw. Acute metabolic encephalopathy likely some degree of due to hyperglycemia versus pain secondary to cholecystitis versus TIA, consider MRI if symptoms worsen. Upon ER arrival patient denied symptoms. Patient presented with hypertension blood pressure 186/104, patient started on lisinopril 5 mg p.o. Hydralazine added as as needed. Patient n.p.o. after midnight and likely cholecystectomy on 10/19/2024. HPI History of Present Illness History of present illness: 74-year-old female past medical history of TIA, dementia, DM2, and hyperlipidemia presented to ED with primary complaint of altered mental status and generalized weakness.? She is a poor historian due to dementia.? was present at the bedside and providing history.? He reports that he observed the patient approximately 8 AM today appearing more weak and confused than usual.? She was standing in the bathroom, appeared unsteady, and called for assistance.? He helped her to stand. The patient currently reports pain near her right axilla and was previously told she had a right upper quadrant pain. She denies any other symptoms at this time.? Per , the patient has since returned to her baseline mental and functional status. ED course: US gallbladder shows acute calculus cholecystitis, CBC wnl, CMP unremarkable, UA negative for UTI Medical history: As stated above Allergies: Codeine, Penicillin Family history: Noncontributory Social history: Denies smoking cigarettes, drinking alcohol or using other illicit drugs ROS: All 12 systems assessed and the patient denies unless otherwise stated in HPI Review of Systems Review of Systems Narrative Review of Systems: General: No acute distress, well nourished, Slightly drowsy Eye: PERRL, EOMI, normal conjunctiva, no scleral icterus HENT: Normocephalic, atraumatic, hearing intact to conversation at normal volume, moist oral mucosa Neck: Supple, non-tender, no JVD, no lymphadenopathy Lungs: Non-labored respirations, symmetric chest rise, Clear to auscultate bilaterally Heart: Peripheral pulses intact bilaterally Abdomen: Soft, non-tender, non-distended, negative Cardona's sign Musculoskeletal: ,Normal range of motion and strength, +1 pitting edema in Lower extremities Skin: Skin is warm, dry, no rashes or lesions. Psychiatric: Cooperative, appropriate mood and affect Neuro: Cranial nerves II-XII grossly intact. Strength 5/5 throughout. Sensations intact to light touch. Exam Vital Signs Temp Pulse Resp BP Pulse Ox O2 Del Method O2 Flow Rate 98.2 F 67 13 162/91 H 100 Nasal Cannula 2 10/18/24 14:08 10/18/24 14:08 10/18/24 14:08 10/18/24 14:08 10/18/24 14:08 10/18/24 14:08 10/18/24 14:08 Results: Labs 10/18/24 10:50 10/18/24 10:50 Labs: Short CBC 10/18/24 Range/Units 10:50 WBC 7.7 (3.6-11.0) Thou/mm3 Hgb 12.5 (12.0-16.0) g/dL Hct 37.9 (36.0-46.0) % Plt Count 312 (140-440) Thou/mm3 BMP 10/18/24 10:50 Sodium 142 Potassium 4.3 Chloride 104 Carbon Dioxide 26.8 BUN 7 L Creatinine 1.0 Glucose 295 H Calcium 9.1 Cardiac Enzymes 10/18/24 Range/Units 10:50 Troponin I < 0.020 (0.0-0.045) ng/mL Liver Function 10/18/24 Range/Units 10:50 Total Bilirubin 0.6 (0.3-1.2) mg/dL AST 14 (0-34) U/L ALT 11 (10-49) U/L Alkaline Phosphatase 174 H (46-116) U/L Albumin 4.6 (3.4-4.8) gm/dL Urine 10/18/24 Range/Units 12:57 Urine Color Lt-Yellow (Lt Yel-Yel) Urine Clarity Clear (Clear/Hazy) Urine pH 5.5 (5.0-7.0) Ur Specific [place] 1.008 (1.001-1.035) Urine Protein Negative (Neg - Trace) Urine Glucose (UA) 3+ A (Negative) Quality Measures Quality Measures VTE prophylaxis Advance care planning discussed with:: patient and spouse Medications Home Medications and Allergies Home Medications ?Medication ?Instructions ?Recorded ?Confirmed ?Type metformin 1,000 mg tablet 1,000 mg PO BID #0 tabs 08/1210/18/24 History (Glucophage) donepezil 10 mg tablet 10 mg PO QDAY 05/15/2410/18 History lorazepam 2 mg/mL oral concentrate 0.5 mg PO PRN PRN a gitation 05/15/24 10/18/24 History (Lorazepam Intensol) mirtazapine 30 mg tablet 30 mg PO QDAY SLEEP 05/15/24 10/18/24 History aspirin 81 mg capsule 81 mg PO QDAY 10/18/2410/18 History quetiapine 100 mg tablet (Seroquel) 100 mg PO BID 12/0510/18/24 History Allergies Allergy/AdvReac Type Severity Reaction Status Date / Time Penicillins Allergy Mild Hives Verified 10/18/24 10:43 codeine Allergy Unknown Verified 10/18/24 10:43 Visit Medications Magnesium Sulfate (Magnesium Sulfate Ivpb) 4 gm in 50 mls @ 12.5 mls/hr IV X1 ONE Stop: 10/18/24 16:07 Last Admin: 10/18/24 14:48 Dose: 12.5 mls/hr Discontinued Medications Sodium Chloride (Ns) 500 mls @ 500 mls/hr IV .Q1H ONE Stop: 10/18/24 11:41 Last Infusion: 10/18/24 12:10 Dose: Infused Assessment & Plan Plan 74-year-old female past medical history of TIA, dementia, DM2, and hyperlipidemia presented to ED with primary complaint of altered mental status and generalized weakness.?In regards to patient's penicillin and codeine allergy, patient never required hospitalization or experience allergic reaction in last 5 years. Her allergy was recorded when she was a child) # Acute Cholecystitis -Chest/Abdomen/pelvis CT: (10/18/2024):Cholelithiasis, recommend hepatobiliary sonography follow-up -US gall bladder: (10/18/2024): Findings most consistent with acute calculus cholecystitis, consider MRCP Plan: - Started IV Zosyn (10/18/2024) (In regards to patient's allergy to penicillin, patient has never required hospitalization or experienced allergic reaction within last 5 years. Her allergy was recorded when she was a child) - NPO midnight - Will likely go into surgery with Dr. Hernandes tomorrow. #Acute metabolic encephalopathy secondary to hyperglycemia vs TIA vs secondary to R. upper quadrant pain - CT head/brain without contrast: Negative for acute hemorrhage, mass effect or midline shift - Glucose level: 295 Plan: - Consider MRI. #HLD #Type 2 Diabetes - Start on home medication - Repeat lipid panel. #HTN -Current BP 186/104. Plan: Start Lisinopril 5mg PO Assessment and plan discussed with my attending physician Dr. Graham and Dr. Duong (PGY2) Dr. Martines (PGY-1)- Internal medicine resident - The patient's plan was discussed with attending Dr. Santos Duong MD PGY2 Internal Medicine
--- NOTE | 2024-10-18 15:38 | PD.SURCONS ---
HPI Consult details Consult date: 10/18/24 Reason for consultation narrative: Cholelithiasis with cholecystitis History of present illness: 74-year-old female with history of diabetes, hyperlipidemia and dementia who was admitted with altered mental status. According to patient's patient has been having upper abdominal pain with nausea and has not been able to eat or tolerate food over the past few weeks. Her CBC was unremarkable. Liver enzymes were normal except slightly elevated alkaline phosphatase. CT scan revealed gallstone, abdominal ultrasound revealed gallbladder wall thickening with pericholecystic edema. Review of Systems Constitutional Constitutional: Denies chills, Denies fever(s) and Denies weight loss Cardiovascular Cardiovascular: Denies chest pain Respiratory Respiratory: Denies cough Gastrointestinal Gastrointestinal: Reports abdominal pain, Reports nausea and Reports vomiting Genitourinary Genitourinary: Denies difficulty voiding Hematologic/Lymphatic Hematologic/Lymphatic: Denies easy bleeding and Denies easy bruising Past Medical History Surgical History OTHER SURGICAL HX: Ovarian cystectomy Social History SMOKING STATUS: Never smoker SUBSTANCE USE: does not use ALCOHOL: Never Meds Home Medications and Allergies Home Medications ?Medication ?Instructions ?Recorded ?Confirmed ?Type metformin 1,000 mg tablet 1,000 mg PO BID #0 tabs 09/06/14 10/18/24 History (Glucophage) donepezil 10 mg tablet 10 mg PO QDAY 05/15/24 10/18/24 History lorazepam 2 mg/mL oral concentrate 0.5 mg PO PRN PRN agitation 05/15/24 10/18/24 History (Lorazepam Intensol) mirtazapine 30 mg tablet 30 mg PO QDAY SLEEP 05/15/24 10/18/24 History aspirin 81 mg capsule 81 mg PO QDAY 10/18/24 10/18/24 History quetiapine 100 mg tablet (Seroquel) 100 mg PO BID 10/18/24 10/18/24 History Allergies Allergy/AdvReac Type Severity Reaction Status Date / Time Penicillins Allergy Mild Hives Verified 10/18/24 10:43 codeine Allergy Unknown Verified 10/18/24 10:43 Exam Vital Signs Temp Pulse Resp BP Pulse Ox O2 Del Method O2 Flow Rate 98.2 F 67 13 162/91 H 100 Nasal Cannula 2 10/18/24 14:08 10/18/24 14:08 10/18/24 14:10/18/24 14:08 10/18/24 14:08 10/18/24 14:08 10/18/24 14:08 Constitutional Constitutional: no acute distress Routine HEENT Exam Eye: Present PERRL (Anicteric sclera) Routine Abdominal Exam Comments: Abdomen is soft and nondistended. She has minimal tenderness to deep palpation of her right upper quadrant without rebound tenderness or peritonitis at this time Results Results: Laboratory Laboratory results: results reviewed Results: Imaging CT scan - abdomen: report reviewed and image reviewed CT scan - pelvis: report reviewed and image reviewed US - abdomen: report reviewed and image reviewed Assessment & Plan Problem List (1) Calculus of gallbladder with acute cholecystitis without obstruction: Status: Acute Plan Keep NPO with IVF and IV antibiotics. Will plan for laparoscopic possible open cholecystectomy tomorrow. Risks include but not limited to infection, bleeding, injury to bowel, liver, stomach, bile duct, retained stone, bile leak, abdominal sepsis and or abdominal abscess, need for further procedure and or operation, pneumonia, blood clot, heart attack, stroke and discussed with the patient and her . Benefits and alternatives explained to them, all their questions answered, they agreed and consented to proceed with the operation.
[2024-10-18 16:20] LABS: Base Excess, Venous 1 (-3-3); O2 Saturation, Venous 56 % (96-97); PCO2, Venous 49 mmHg (36-56); PO2, Venous 31 mmHg (15-58); pH, Venous 7.35 (7.33-7.66)
[2024-10-18] MEDS: PIPER/TAZO 3.375 GM PREMIX 3.375 GM/50 ML BAG IV ×2 (17:49→21:57)
[2024-10-18] MEDS: INSULIN LISPRO (AdmeLOG) 1 UNIT/0.01 ML UNIT SC ×2 (17:51→20:44)
[2024-10-18] MEDS: HEPARIN SOD INJ 5000 UNIT/ML VIAL SC (20:45)
[2024-10-18] MEDS: ATORVASTATIN CALCIUM 20 MG TABLET 40 MG PO (20:50)
[2024-10-18] MEDS: MIRTAZAPINE 15 MG TABLET PO (20:50)
[2024-10-18] MEDS: FAMOTIDINE 20 MG TABLET PO (20:50)
--- NOTE | 2024-10-18 22:54 | PC.NURSE ---
Pt is very restless, pulled out her IV and trying to get out of bed, MD Lundberg made aware, will check on pt chart and put order in.
[2024-10-19] VITALS (19 sets, daily range): BP systolic 115–183; BP diastolic 58–97; PULSE 65–100; RESP 14–99; TEMP 35.7–36.8; O2SAT 93–100
[2024-10-19] MEDS: PIPER/TAZO 3.375 GM PREMIX 3.375 GM/50 ML BAG IV ×2 (05:20→13:45)
[2024-10-19 06:21] LABS: Basophils # (Auto) 0.1 Thou/mm3 (0.0-0.2); Basophils % (Auto) 1 % (0-2.5); Eosinophils # (Auto) 0.3 Thou/mm3 (0.0-0.5); Eosinophils % (Auto) 4 % (0-10); Hematocrit 35.7 % (36.0-46.0); Hemoglobin 12.0 g/dL (12.0-16.0); Immature Granulocytes Auto 0.03 Thou/mm3 (0.00-0.00); Lymphocytes # (Auto) 1.7 Thou/mm3 (1.0-4.8); Lymphocytes % (Auto) 24 % (10-50); Mean Corpuscular HGB Conc 33.6 g/dl (31.0-37.0); Mean Corpuscular Hemoglobin 28.5 pg (25.0-35.0); Mean Corpuscular Volume 85 fL (80-100); Monocytes # (Auto) 0.5 Thou/mm3 (0.0-0.8); Monocytes % (Auto) 8 % (0-12); Neutrophils # (Auto) 4.5 Thou/mm3 (1.8-7.7); Neutrophils % (Auto) 63 % (37-80); Nucleated Red Blood Cell # 0.00 Thou/mm3 (0.00-0.00); Nucleated Red Blood Cell % 0 /100 WBC (0); Platelet Count 314 Thou/mm3 (140-440); RDW Standard Deviation 42.5 fL (36.4-46.3); Red Blood Count 4.21 Miln/mm3 (4.00-5.20); White Blood Count 7.0 Thou/mm3 (3.6-11.0)
[2024-10-19 06:58] LABS: Alanine Aminotransferase 12 U/L (10-49); Albumin, Serum 4.1 gm/dL (3.4-4.8); Albumin/Globulin Ratio 2.0 (1.2-2.2); Alkaline Phosphatase 151 U/L (46-116); Anion Gap 13 (7-16); Aspartate Amino Transferase 16 U/L (0-34); BUN/Creatinine Ratio 11 Ratio (12-20); Bilirubin,Total 0.6 mg/dL (0.3-1.2); Blood Urea Nitrogen 10 mg/dL (9-23); Calcium 8.9 mg/dL (8.3-10.6); Calcium (Corrected) 8.9 mg/dL (8.5-10.1); Carbon Dioxide 26.0 mMol/L (20.0-31.0); Cardiac Risk Estimate 4.7 RATIO (3.7-5.6); Chloride 103 mMol/L (98-107); Cholesterol 187 mg/dL (132-200); Creatinine (Component) 0.9 mg/dL (0.6-1.3); Estimated Creatinine Clearance 57.7 mL/min (>60); Globulin 2.1 gm/dL (2.3-3.5); Glucose 247 mg/dL (74-106); HDL Cholesterol 40 mg/dL (40-60); LDL Cholesterol,Calculated 121 mg/dL (0-130); Magnesium 1.4 mg/dL (1.6-2.6); Osmolality,Calculated 290 (275-295); Phosphorous 3.2 mg/dL (2.4-5.1); Potassium 4.3 mMol/L (3.4-5.1); Sodium 142 mMol/L (136-145); Total Protein 6.2 gm/dL (5.7-8.2); Triglycerides 129 mg/dL (30-150); eGFR > 60 See Note
[2024-10-19 07:18] LABS: Glucose Estimated Average 237 mg/dL (80-131); Hemoglobin A1C 9.9 % Hgb (4.8-6.0)
[2024-10-19] MEDS: FAMOTIDINE 20 MG TABLET PO ×2 (08:42→20:25)
[2024-10-19] MEDS: DONEPEZIL HCL 5 MG TABLET 10 MG PO (08:42)
[2024-10-19] MEDS: INSULIN GLARGINE (Lantus) 5 UNIT/0.05 ML (PER 5 UNITS) SC (10:08)
[2024-10-19] MEDS: KCL 20 mEq/L in 1/2NS 20 MEQ/1,000 ML BAG 70 MEQ IV (10:09)
[2024-10-19] MEDS: INSULIN LISPRO (AdmeLOG) 1 UNIT/0.01 ML UNIT SC ×3 (12:23→20:35)
--- NOTE | 2024-10-19 13:27 | PD.RESPRO ---
Documentation for date of: 10/19/24 Patient examined at bedside. Patient confused at baseline but has a past medical history of dementia, per at bedside this is baseline for patient. Maci willis called for patient as patient was agitated, medical restraints added, next 24 hours. Please try to reorient patient. Patient's Seroquel, mirtazapine, and memantine resumed. Ativan 0.5 mg IV push added as as needed as this is patient's home medication. Patient is now status post cholecystectomy. [place] as needed for pain management. Full liquid diet for Dr Hernandes. Blood cultures negative after 24 hours. Continue IV antibiotics. Subjective Subjective Interval history: Patient was seen and examined at bedside. A.m. vitals and labs reviewed. The patient is alert awake is slow to respond. According to her , she has returned to her baseline. Patient no longer experiencing abdominal pain. Denies chest pain, shortness of breathe, fever or chills. ROS is negative otherwise noted. She is scheduled for cholecystectomy today at 3pm. Exam Vital Signs Temp Pulse Resp BP Pulse Ox O2 Del Method O2 Flow Rate 98.3 F 83 16 153/84 H 93 L Room Air 2 10/19/24 11:55 10/19/24 11:55 10/19/24 11:55 10/19/24 11:55 10/19/24 11:55 10/19/24 11:55 10/19/24 00:00 Narrative Exam General: No acute distress, well nourished, Slightly drowsy Eye: PERRL, EOMI, normal conjunctiva, no scleral icterus HENT: Normocephalic, atraumatic, hearing intact to conversation at normal volume, moist oral mucosa Neck: Supple, non-tender, no JVD, no lymphadenopathy Lungs: Non-labored respirations, symmetric chest rise, Clear to auscultate bilaterally Heart: Peripheral pulses intact bilaterally Abdomen: Soft, non-tender, non-distended, negative Cardona's sign Musculoskeletal: ,Normal range of motion and strength, +1 pitting edema in Lower extremities Skin: Skin is warm, dry, no rashes or lesions. Psychiatric: Cooperative, appropriate mood and affect Neuro: Cranial nerves II-XII grossly intact. Strength 5/5 throughout. Sensations intact to light touch. Objective Labs 10/19/24 06:05 10/19/24 06:05 Labs: Laboratory Results - last 24 hr 10/18/24 10/18/24 10/19/24 12:57 16:07 06:05 WBC 7.0 RBC 4.21 Hgb 12.0 Hct 35.7 L MCV 85 MCH 28.5 MCHC 33.6 RDW Std Deviation 42.5 Plt Count 314 Neut % (Auto) 63 Lymph % (Auto) 24 [place] % (Auto) 8 Eos % (Auto) 4 Baso % (Auto) 1 Neut # (Auto) 4.5 Lymph # (Auto) 1.7 [place] # (Auto) 0.5 Eos # (Auto) 0.3 Baso # (Auto) 0.1 Immature Gran # (Auto) 0.03 H Absolute Nucleated RBC 0.00 Immature Gran % 0 Nucleated RBC % 0 VBG pH 7.35 VBG pCO2 49 VBG pO2 31 VBG O2 Sat (Lynn) 56 L VBG Base Excess 1 Sodium 142 Potassium 4.3 Chloride 103 Carbon Dioxide 26.0 Anion Gap 13 BUN 10 Creatinine 0.9 Estim Creat Clear Calc 57.7 L eGFR > 60 BUN/Creatinine Ratio 11 L Glucose [address] Glu mg/dL 237 H Hemoglobin A1c 9.9 H Calculated Osmolality 290 Calcium 8.9 Corrected Calcium 8.9 Phosphorus 3.2 Magnesium 1.4 L Total Bilirubin 0.6 AST 16 ALT 12 Alkaline Phosphatase 151 H D Total Protein 6.2 Albumin 4.1 D Globulin 2.1 L Albumin/Globulin Ratio 2.0 Triglycerides 129 Cholesterol 187 LDL Cholesterol, Calc 121 HDL Cholesterol 40 Cholesterol/HDL Ratio 4.7 Ur Collection Type Clean Catch Urine Color Lt-Yellow Urine Clarity Clear Urine pH 5.5 Ur Specific [place] 1.008 Urine Protein Negative Urine Glucose (UA) 3+ A Urine Ketones Negative Urine Blood Negative Urine Nitrite Negative Urine Bilirubin Negative Urine Urobilinogen (Auto) Negative Ur Leukocyte Esterase Negative Urine RBC 0 Urine WBC 1 Ur Squamous Epith Cells 3 Urine Bacteria None Urine Opiates Screen Negative Urine Fentanyl Screen Negative Ur Barbiturates Screen Negative U Amphetamin/Meth Scrn Negative U Benzodiazepines Scrn Negative U Cocaine Metab Screen Negative U Marijuana (THC) Screen Negative ABG Interpretation ABG results: 10/18/24 16:07 VBG pH 7.35 VBG pCO2 49 VBG pO2 31 VBG Base Excess 1 Quality Measures Quality Measures VTE prophylaxis Advance care planning discussed with:: patient and spouse Assessment & Plan Assessment Current Active Medications: Generic Name Dose Route Start Last Admin Trade Name Freq PRN Reason Stop Dose Admin Acetaminophen 650 mg 10/18/24 15:58 Acetaminophen 325 Mg Tablet PO 11/17/24 15:57 Q6H PRN Mild pain 1-3 or fever >100.3 Hydrocodone Bitart/Acetaminophen 1 tab 10/18/24 16:33 Hydrocodone/Apap 5/325 Tablet PO 10/23/24 16:32 Q8HR PRN PAIN SCALE 4-10(Mod-Sev Atorvastatin Calcium 40 mg 10/18/24 21:00 10/18/24 20:50 Atorvastatin Calcium 20 Mg Tablet PO 11/17/24 20:59 40 mg HS VILMA Administration Dextrose 25 ml 10/18/24 16:05 Dextrose 50%-Water Inj 50 Ml Syringe IV 11/17/24 16:04 Q15MIN PRN BG 50-70 responsive npo pt Dextrose 50 ml 10/18/24 16:05 Dextrose 50%-Water Inj 50 Ml Syringe IV 11/17/24 16:04 Q15MIN PRN BG <50 OR BG <70 & pt unresponsive Donepezil HCl 10 mg 10/19/24 09:00 10/19/24 08:42 Donepezil Hcl 5 Mg Tablet PO 11/18/24 08:59 10 mg QDAY VILMA Administration Famotidine 20 mg 10/18/24 21:00 10/19/24 08:42 Famotidine 20 Mg Tablet PO 11/17/24 20:59 20 mg BID VILMA Administration Glucagon 1 mg 10/18/24 16:05 Glucagon Inj 1 Mg Vial IM Q15MIN PRN BG <70, and no IV access Heparin Sodium (Porcine) 5,000 unit 10/18/24 21:00 10/19/24 10:05 Heparin Sod Inj 5000 Unit/Ml Vial SC 11/01/24 20:59 Not Given Q12HR VILMA Hydralazine HCl 10 mg 10/18/24 16:23 Hydralazine Inj 20 Mg/Ml Vial IVP 11/17/24 16:22 Q6HR PRN Hypertension Piperacillin/Tazobactam/Dextrose 3.375 gm in 50 mls @ 12.5 mls/hr 10/18/24 22:00 10/19/24 05:20 Zosyn IV 10/25/24 21:59 12.5 mls/hr Q8HR VILMA Administration Potassium Chloride/Sodium Chloride 20 meq in 1,000 mls @ 70 mls/hr 10/19/24 08:20 10/19/24 10:09 Kcl 20 Meq/L In 1/2ns IV 10/21/24 03:11 70 mls/hr .[id number] VILMA Administration Insulin Human Lispro 0 unit 10/18/24 17:00 10/19/24 12:23 Insulin Lispro (Admelog) 1 Unit/0.01 Ml Unit SC 11/17/24 16:59 5 unit ACHS VILMA Administration Protocol Lisinopril 5 mg 10/18/24 16:45 10/19/24 08:42 Lisinopril 2.5 Mg Tablet PO 11/17/24 16:44 5 mg QDAY VILMA Administration Mirtazapine 15 mg 10/18/24 21:00 10/18/24 20:50 Mirtazapine 15 Mg Tablet PO 11/17/24 20:59 15 mg HS VILMA Administration Ondansetron HCl 4 mg 10/18/24 15:58 Ondansetron Inj 2 Mg/Ml Inj 2 Ml IVP 11/17/24 15:57 Q6H PRN NAUSEA OR VOMITING Protocol Quetiapine Fumarate 100 mg 10/18/24 21:00 10/19/24 08:42 Quetiapine Fumarate 100 Mg Tablet PO 11/17/24 20:59 100 mg BID VILMA Administration Sennosides 1 tab 10/18/24 16:00 10/19/24 10:18 Senna Tablet PO 11/17/24 15:59 Not Given QDAY VILMA Protocol Plan 74-year-old female past medical history of TIA, dementia, DM2, and hyperlipidemia presented to ED with primary complaint of altered mental status and generalized weakness.?In regards to patient's penicillin and codeine allergy, patient never required hospitalization or experience allergic reaction in last 5 years. Her allergy was recorded when she was a child. #S/P Cholecystectomy # Acute Cholecystitis -Chest/Abdomen/pelvis CT: (10/18/2024):Cholelithiasis, recommend hepatobiliary sonography follow-up -US gall bladder: (10/18/2024): Findings most consistent with acute calculus cholecystitis, consider MRCP Plan: -Full liquid Diet - Started IV Zosyn (10/18/2024) (In regards to patient's allergy to penicillin, patient has never required hospitalization or experienced allergic reaction within last 5 years. Her allergy was recorded when she was a child) - Cholecystectomy schduled today at 3pm #Dementia Patient has a past medical history of dementia. Resume patient's home medication. Patient has increased agitation likely secondary to delirium in the setting of hospital setting. Plan -Seroquel 100 mg BID -MIrtazapine 30 mg HS -Ativan 0.5 mg IV q8hr PRN, home medication of lorazepam 0.5 mg PRN #Type 2 Diabetes, non insulin dependent #HLD Patient has a past medical history of of diabetes mellitus type 2, non insulin dependent. Patient's home medication of Metformin 1000 mg BID and glyburide 5 mg TID. A1c 9.9% (10/2024) Lipid Panel (10/19/2024): Triglycerides 129, Cholesterol 187, LDL 121, HDL 40 ASCVD: 49.9% Plan -Sliding scale -Glargine 5 units x 1 -Atorvastatin #HTN -Current BP 186/104.-->140/74 Plan: -Start Lisinopril 5mg PO -Hydralazine PRN #Acute metabolic encephalopathy secondary to hyperglycemia, resolved. Health Maintenance: Disp: Pt is currently admitted to floors for further management of acute cholecystitis, awaiting blood cultures s/p op for further pain management. FEN: Full Liquid Diet (previously low carb consistent) DVT: on subQ heparin q12 HR Code: Full Assessment and plan discussed with my attending physician Dr. Graham and Dr. Duong (PGY2) Dr. Martines (PGY-1)- Internal medicine resident - The patient's plan was discussed with attending Dr. Santos Duong MD PGY2 Internal Medicine
--- NOTE | 2024-10-19 14:22 | PC.SS ---
Initial assessment: Patient is a 74-year old female here for RUQ Pain. Patient information was obtained by spouse, Amarjit Sahu at bed side as patient is not alert. Spouse Amrajit, was able to confirm the patients demographic information. Amarjit informs he and the patient reside in the home and he will assume medical decision making on behalf of the patient when necessary. Per spouse, the patient has able to ambulate with assistance from home walker. Spouse denies additional DME used at home by the patient. Per Amarjit, the patient is followed by [facility] for primary care. Patient is also followed by Dr. Rivas. Spouse informs the patient was being followed by [facility] for her history of dementia for about two years now and would like to continue with services following hospital discharge. The discharge plan is for patient to return home with hospice services, patient spouse informs he can transport the patient home at discharge. Patient spouse was provided with community resource handout including brochure to [facility] [place] resource information. D/c plan: home hospice Next of kin: spouse, Amarjit
--- NOTE | 2024-10-19 14:32 | PC.SS ---
Rounding note: patient had code zafar called earlier today. Patient on wrist restraints. Possible d/c for the patient tomorrow. Hospice order was requested for referral.
--- NOTE | 2024-10-19 15:02 | ESOP_ITS ---
Date of Procedure 10/19/24 Pre Op Diagnosis Cholelithiasis with cholecystitis Post Op Diagnosis Cholelithiasis with cholecystitis Procedure Laparoscopic cholecystectomy Findings Contracted gallbladder full of stones with minimal gallbladder wall thickening and pericholecystic edema Procedure Description Patient was brought into the operating room in supine position. After administration of general endotracheal anesthesia abdomen was prepped and draped in standard surgical manner. A Veress needle was inserted through the umbilicus and pneumoperitoneum was obtained up to 15 mmHg. The Veress needle was then removed, a 5 mm infraumbilical incision was made and the 5mm trocar was inserted. Laparoscopic camera was placed. Under direct visualization a laparoscopic camera a 10 mm trocar was placed in subxiphoid and two 5 mm trocars placed in right upper quadrant. Anterior surface of the liver has very minimal nodularities. The gallbladder was identified and was noted to be contracted. The gallbladder was filled with stones with minimal gallbladder wall thickening and pericholecystic edema. It was retracted cephalad and laterally. Dissection started near the infundibulum of gallbladder where cystic duct and gallbladder junction clearly identified. The cystic duct was circumferentially dissected off the peritoneum and surrounding inflammatory tissue. The critical view of safety was clearly demonstrated. Cystic duct was then divided between 2 endoclips proximally and one distally. The cystic artery was similarly d issected and divided. The gallbladder was then from the liver bed using electrocautery. The gallbladder was then placed inside an Endo Catch and removed from the abdomen utilizing subxiphoid trocar site. The area was copiously and thoroughly washed and irrigated, all the fluid was suctioned and the suction fluid returned clear. Hemostasis achieved using electrocautery. Endoclips noted be in place and intact without any bleeding or any leakage. Hemostasis was adequate and satisfactory. The subxiphoid trocar sites fascial defect was closed with 0 Vicryl using Endo Closure device. Instruments and trocars removed, pneumoperitoneum was evacuated and the incisions closed with 4- 0 Monocryl in subcuticular fashion. Instrument needle and sponge counts were all reported to be correct X2. Patient tolerated the procedure well, was extubated, breathing spontaneously and without difficulty and was transferred to postanesthesia care in stable condition. Anesthesia GETA and local Pathology / specimen Other (Gallbladder and contents) Estimated Blood Loss 10 Condition Stable Disposition PACU Surgeon Thomas Hernandse MD Surgical Staff Operation Date: 10/19/24 14:15 Case Staff Anesthesiologist: Boo Fu RN First Assistant: Sofi Vega
--- NOTE | 2024-10-19 15:05 | SUR.PHASEI ---
1507 Patient arrived to recovery resting comfortably in [facility], on oxygen 4L via nasal cannula with an oral airway in place, breathing unlabored, vital signs stable, dressing intact to abdomen; dermabond, no bleeding noted, report received from Dr. Fu and Nelson SUN
--- NOTE | 2024-10-19 15:35 | SUR.PHASEI ---
1535 patients at bedside all questions answered, he shared he was going to her room to wait for her
--- NOTE | 2024-10-19 16:00 | SUR.PHASEI ---
1552 Report given to Demetrius RN, patient meets discharge criteria from recovery, resting comfortably in [facility], responds to verbal prompting, on oxygen 2L via nasal cannula, breathing unlabored, vital signs stable, denies pain, dressing intact; no bleeding, eating ice chips; denies nausea 1600 Patient transported via rney to room 362 without incident, Sara MACDONALD and Demetrius RN promptly in patients room and assisted with transferring patient from [facility] to bed, patient family awaiting for patient in her room, patient resting comfortably in bed when this resume writer left patient room, staff still at bedside with patient
--- NOTE | 2024-10-19 17:48 | PD.RESEVENT ---
Documentation for date of: 10/19/24 Event Note Event Note: Event note at approximately 4:00 PM Rapid response called for hypothermia, rectal temperature 96 Fahrenheit Patient's status post cholecystectomy with a rectal temperature 96F. Patient is alert and dementia at baseline but following commands. Patient's vitals are stable, with a systolic blood pressure of 170, saturating well on 1 nasal cannula, respiratory rate 18, and glucose level greater than 90. Repeat temperature 97 Fahrenheit. Labs review. CBC within normal limits. Electrolytes within normal limits. Patient already has warm blankets. Please add bear hugger if if hypothermia persist repeat labs. - The patient's plan was discussed with attending Dr. Graham. Tess Duong MD PGY2 Internal Medicine
--- NOTE | 2024-10-19 19:47 | PC.NURSE ---
called Dr. Lundberg regarding becoming restless, trying to get out of bed, per family if she could have something to help calm her down. New orders received.
[2024-10-19] MEDS: ATORVASTATIN CALCIUM 20 MG TABLET 40 MG PO (20:24)
[2024-10-19] MEDS: DOCUSATE SOD 100 MG CAPSULE PO (20:25)
[2024-10-19] MEDS: MIRTAZAPINE 15 MG TABLET PO (20:25)
[2024-10-19] MEDS: HEPARIN SOD INJ 5000 UNIT/ML VIAL SC (20:29)
--- NOTE | 2024-10-19 23:47 | PC.NURSE ---
called Dr. Lundberg regarding patient's BP of 175/94, Patient a little agitated, trying to get out of bed when Vital signs were taken, patient has PRN hydralazine for SBP >180 DBP >110, per doctor to continue to monitor BP and follow parameters of medication.
[2024-10-20] VITALS: BP 163/89; PULSE 92; RESP 20; TEMP 36.6; O2SAT 95
[2024-10-20 04:00] VITALS: BP 170/90; PULSE 68; RESP 18; TEMP 36.9; O2SAT 96
[2024-10-20 06:26] LABS: Basophils # (Auto) 0.0 Thou/mm3 (0.0-0.2); Basophils % (Auto) 0 % (0-2.5); Eosinophils # (Auto) 0.0 Thou/mm3 (0.0-0.5); Eosinophils % (Auto) 0 % (0-10); Hematocrit 36.5 % (36.0-46.0); Hemoglobin 12.3 g/dL (12.0-16.0); Immature Granulocytes Auto 0.04 Thou/mm3 (0.00-0.00); Lymphocytes # (Auto) 1.3 Thou/mm3 (1.0-4.8); Lymphocytes % (Auto) 13 % (10-50); Mean Corpuscular HGB Conc 33.7 g/dl (31.0-37.0); Mean Corpuscular Hemoglobin 28.3 pg (25.0-35.0); Mean Corpuscular Volume 84 fL (80-100); Monocytes # (Auto) 0.5 Thou/mm3 (0.0-0.8); Monocytes % (Auto) 5 % (0-12); Neutrophils # (Auto) 8.4 Thou/mm3 (1.8-7.7); Neutrophils % (Auto) 82 % (37-80); Nucleated Red Blood Cell # 0.00 Thou/mm3 (0.00-0.00); Nucleated Red Blood Cell % 0 /100 WBC (0); Platelet Count 350 Thou/mm3 (140-440); RDW Standard Deviation 41.7 fL (36.4-46.3); Red Blood Count 4.34 Miln/mm3 (4.00-5.20); White Blood Count 10.2 Thou/mm3 (3.6-11.0)
[2024-10-20 06:56] LABS: Alanine Aminotransferase 26 U/L (10-49); Albumin, Serum 4.5 gm/dL (3.4-4.8); Albumin/Globulin Ratio 2.0 (1.2-2.2); Alkaline Phosphatase 166 U/L (46-116); Anion Gap 14 (7-16); Aspartate Amino Transferase 43 U/L (0-34); BUN/Creatinine Ratio 6 Ratio (12-20); Bilirubin,Total 0.6 mg/dL (0.3-1.2); Blood Urea Nitrogen 6 mg/dL (9-23); Calcium 9.6 mg/dL (8.3-10.6); Calcium (Corrected) 9.6 mg/dL (8.5-10.1); Carbon Dioxide 23.3 mMol/L (20.0-31.0); Chloride 103 mMol/L (98-107); Creatinine (Component) 1.0 mg/dL (0.6-1.3); Estimated Creatinine Clearance 51.9 mL/min (>60); Globulin 2.3 gm/dL (2.3-3.5); Glucose 275 mg/dL (74-106); Magnesium 1.4 mg/dL (1.6-2.6); Osmolality,Calculated 287 (275-295); Phosphorous 2.9 mg/dL (2.4-5.1); Potassium 4.2 mMol/L (3.4-5.1); Sodium 140 mMol/L (136-145); Total Protein 6.8 gm/dL (5.7-8.2); eGFR 58 See Note
[2024-10-20 08:00] VITALS: BP 146/97; PULSE 81; RESP 17; TEMP 36.2; O2SAT 97
[2024-10-20] MEDS: INSULIN LISPRO (AdmeLOG) 1 UNIT/0.01 ML UNIT SC ×2 (08:26→11:53)
[2024-10-20] MEDS: HEPARIN SOD INJ 5000 UNIT/ML VIAL SC (08:27)
[2024-10-20] MEDS: DONEPEZIL HCL 5 MG TABLET 10 MG PO (08:27)
[2024-10-20 08:28] VITALS: BP 146/97; PULSE 81
[2024-10-20] MEDS: MEMANTINE HCL 5 MG TABLET 10 MG PO (08:28)
[2024-10-20] MEDS: DOCUSATE SOD 100 MG CAPSULE PO (08:28)
[2024-10-20] MEDS: FAMOTIDINE 20 MG TABLET PO (08:29)
[2024-10-20] MEDS: Magnesium Sulfate 2 GM Ivpb 2 GM/50 ML BAG IV (08:29)
--- NOTE | 2024-10-20 09:26 | PC.SS ---
SS has sent Hospice Referral to [facility] using [facility].
--- NOTE | 2024-10-20 10:09 | PD.SURPROG ---
Documentation for date of: 10/20/24 Subjective Subjective Narrative: Patient is seen and examined. She is resting comfortably Exam Vital Signs Temp Pulse Resp BP Pulse Ox O2 Del Method O2 Flow Rate 97.2 F 81 17 146/97 H 97 Room Air 1 10/20/24 08:00 10/20/24 08:28 10/20/24 08:00 10/20/24 08:28 10/20/24 08:00 10/20/24 08:00 10/19/24 17:30 Constitutional Constitutional: no acute distress Routine Abdominal Exam Comments: Abdomen is soft and nondistended. Incisions are clean, dry and intact Assessment & Plan Assessment Additional comments: Postop day #1 status post laparoscopic cholecystectomy Plan Advance to low-fat diet, may discharge if tolerating diet well PROCEDURES: Procedures Laparoscopic cholecystectomy
[2024-10-20 11:50] VITALS: PULSE 87; RESP 18; RESP 98
[2024-10-20] MEDS: INSULIN LISPRO (AdmeLOG) 1 UNIT/0.01 ML UNIT 3 UNIT SC (11:54)
[2024-10-20 12:00] VITALS: BP 136/77; PULSE 88; RESP 18; TEMP 36.3; O2SAT 97
--- NOTE | 2024-10-20 13:24 | ESDS_ITS ---
Planned Discharge Date 10/20/24 DS: Providers Provider Date of admission: 10/18/24 15:55 Primary care physician: Emilia Cardona MD Admitting Provider: Irineo Graham MD Attending Provider on Admission: Irineo Graham MD Consults: 10/20/24 08:53 Referral Hospice Urgent Comment: Attending Provider on DC: RESIDENT David Discharging Provider: RESIDENT David DS: Diagnosis Problem List Completed Was Problem List Reviewed/Reconciled?: Yes Hospital Course Hospital Course Hospital course: 74-year-old female past medical history of dementia, TIA, Hyperlipidemia, and diabetes mellitus type 2-insulin dependent who presented to ED with primary complaint of altered mental status and generalized weakness. Altered mental status has resolved prior to admission. US gallbladder showed cholecystitis. Patient was started on IV zosyn and later received cholecystectomy. Please follow up with general surgery, Dr. Hernandes. ED Course: Chest/Abdomen/pelvis CT showed Cholelithiasis. US gallbladder showed acute calculus cholecystitis, CBC wnl, CMP unremarkable, UA negative for UTI Hospital course: Upon admission, started on IV Zosyn. CT head/brain without contrast was negative for acute hemorrhage, mass effect or midline shift. Was given lisinopril 5mg PO for her hypertension. Received cholecystectomy on 10/19/2024. Resumed her home medication for dementia: Seroquel, Mirtazapine, and ativan PRN. Started patient on insulin glargine 10 units HS. Please follow up with primary proved diabetic medication as metformin was stopped since you were no longer taking medicaiton. #S/P Cholecystectomy # Acute Cholecystitis #Dementia #Type 2 Diabetes, insulin dependent #HLD #Acute metabolic encephalopathy secondary to hyperglycemia, resolved. Instructions: -Elevated A1c of 9.9 %, Glargine 10 units at night -Goal glucose for morning 130-140 and glucose after meals <200. Please follow up with your primary care provider to manage your insulin and diabetic medication -Please take all medication as prescribed -Please follow up with your primary care provider within one week of discharge -If your symptoms worsen,please seek immediate medical attention and return to your nearest emergency room -If you do not have a primary care provider, you may follow up at the [facility] at [address], [place] [address], Safe to discharge to Home Assessment and plan discussed with my attending physician Dr. Graham and Dr. Duong (PGY-2) Dr. Martines (PGY-1)- Internal medicine resident - The patient's plan was discussed with attending Dr. Santos Duong MD PGY2 Internal Medicine Time Spent with Patient Time attestation: Total time spent providing and/or coordinating discharge services: Time spent: Greater than 30 minutes Exam Vital Signs Temp Pulse Resp BP Pulse Ox O2 Del Method O2 Flow Rate 97.3 F 88 18 136/77 H 97 Room Air 1 10/20/24 12:00 10/20/24 12:00 10/20/24 12:00 10/20/24 12:00 10/20/24 12:00 10/20/24 12:00 10/19/24 17:30 Narrative Exam General: No acute distress, well nourished, Slightly drowsy Eye: PERRL, EOMI, normal conjunctiva, no scleral icterus HENT: Normocephalic, atraumatic, hearing intact to conversation at normal volume, moist oral mucosa Neck: Supple, non-tender, no JVD, no lymphadenopathy Lungs: Non-labored respirations, symmetric chest rise, Clear to auscultate bilaterally Heart: Peripheral pulses intact bilaterally Abdomen: Soft, non-tender, non-distended, negative Cardona's sign Musculoskeletal: ,Normal range of motion and strength, +1 pitting edema in Lower extremities Skin: Skin is warm, dry, no rashes or lesions. Psychiatric: Cooperative, appropriate mood and affect Neuro: Cranial nerves II-XII grossly intact. Strength 5/5 throughout. Sensations intact to light touch. Discharge Plan Plan Patient Disposition: HOME (Self Care) Patient condition on transfer: Stable Care Plan Goals: Instructions: -Elevated A1c of 9.9 %, Glargine 10 units at night -Goal glucose for morning 130-140 and glucose after meals <200. Please follow up with your primary care provider to manage your insulin and diabetic medication -Please take all medication as prescribed -Please follow up with your primary care provider within one week of discharge -If your symptoms worsen,please seek immediate medical attention and return to your nearest emergency room -If you do not have a primary care provider, you may follow up at the [facility] at [address] [place] [address] [address], [place] [address], Prescriptions/Referrals Prescriptions/Med Rec: New atorvastatin 40 mg tablet 40 mg PO QPM 30 Days Qty: 30 0RF insulin glargine 100 unit/mL solution 10 unit subcut QPM 30 Days Qty: 3 0RF (DME) blood-glucose meter [Accu-Chek Guide Glucose Meter] Misc See Rx Instructions .Route Qty: 1 0RF Rx Instructions: As directed (DME) Accutrend Glucose test strips Strip See Rx Instructions .Route Qty: 50 2RF Rx Instructions: As directed (DME) lancets Misc See Rx Instructions .Route Qty: 100 0RF Rx Instructions: As directed Continued lorazepam [Lorazepam Intensol] 2 mg/mL concentrate 0.5 mg PO PRN PRN (Reason: agitation) Patient Comments: give 0.5mg(0.25ml) every 6 hours as needed for anxiety/agitation mirtazapine 30 mg tablet 30 mg PO QDAY donepezil 10 mg tablet 10 mg PO QDAY glyburide 5 mg tablet 5 mg PO TID Qty: 90 0RF aspirin 81 mg capsule 81 mg PO QDAY quetiapine [Seroquel] 100 mg tablet 100 mg PO BID Discontinued metformin [Glucophage] 1,000 MG tablet 1,000 mg PO BID Qty: 0 Referrals: Thomas Hernandes MD [Physician] - Emilia Cardona MD [Primary Care Provider] - Patient/Caregiver Discharge Instructions Education Materials: Cholecystectomy, Preventing Surgical Site Infections Print Language: Barbadian Activity Restrictions/Additional Instructions: May shower in 24 hours. Avoid lifting, straining, pulling or pushing for 4 weeks. May take over the counter laxatives if no bowel movement in 2 days. Fo llow up with Dr. Hernandes in 2 weeks, call [phone] for an appointment. Continue low-fat diet for a week then advance diet as tolerated. Stand Alone Forms: Roxane Award Info., Patient Portal Info Letter Discharge Order Discharge Orders: Discharge (Routine); Ordered 10/20/24 Ordered By: Tess Duong Quality Discharge Quality Measures VTE prophylaxis
== END 2024-10-20 13:11 | disposition home or self-care (01) | DRG 417 ==
LOC: SERX 11:23 → SERHOLD 16:16 → S3NX 17:34
PROVIDERS: Surgery; Admitting Provider Internal Medicine; Emergency Provider Student in an Organized Health Care Education/Training Program; PCP Family Medicine; Visit Provider Internal Medicine
PROC: 0FT44ZZ Resection of Gallbladder, Percutaneous Endoscopic Approach (ICD-10-PCS; CPT 47562; principal; 2024-10-19 14:00)
DX: K80.12 Calculus of gallbladder with acute and chronic cholecystitis without obstruction (principal); G93.41 Metabolic encephalopathy; E78.5 Hyperlipidemia, unspecified; E11.65 Type 2 diabetes mellitus with hyperglycemia; I10 Essential (primary) hypertension; F03.90 Unspecified dementia, unspecified severity, without behavioral disturbance, psychotic disturbance, mood disturbance, and anxiety; Z86.73 Personal history of transient ischemic attack (TIA), and cerebral infarction without residual deficits; Z88.5 Allergy status to narcotic agent; Z88.0 Allergy status to penicillin; Z78.1 Physical restraint status; Z79.82 Long term (current) use of aspirin; Z79.84 Long term (current) use of oral hypoglycemic drugs; Z79.899 Other long term (current) drug therapy
CPT/HCPCS: 36415; 36600; 70450; 71250; 74176; 76705; 80053; 80061; 80307; 80320; 80329; 81001; 82140; 82803; 83036; 83605; 83735; 84100; 84145; 84443; 84484; 85025; 87040; 87086; 87400; 87811; 94762; A4217; A4649; J0131; J0694; J1100; J1200; J1644; J1815; J1885; J2250; J2543; J2704; J2765; J3010; J3475; J3480; J3490; J7999; A9270; G0480

== ENCOUNTER 2024-10-29 07:05 | Emergency (ER) | payer MEDICARE, OTHER, SELFPAY ==
[2024-10-29 07:18] VITALS: BP 147/82; PULSE 98; RESP 17; TEMP 36.3; O2SAT 98
--- NOTE | 2024-10-29 07:23 | PD.EDWEAK ---
ED Weakness RME/HPI General Chief complaint: Fall Stated complaint: fall Time Seen by Provider: 10/29/24 07:07 Arrival date/time: 10/29/24 07:05 Limitations: no limitations RME / HPI RME / HPI Narrative: DR. HOGAN MAIN ED EVALUATION: 74 year old female with past medical history significant for TIA, dementia, DM2, hyperlipidemia, and recent cholecystectomy presents to the Emergency Department BIB from home after being found on the restroom floor by her . She reportedly had a near-syncopal episode earlier in the day. History notable for dementia with variable baseline per , experiencing both good and bad days. EMS reported the patient is confused with a GCS of 14. EMS noted the patient was sluggish on arrival. Blood sugar was 503 per EMS. Possibility of a fall is unclear. Related Data Home Medications ?Medication ?Instructions ?Recorded ?Confirmed donepezil 10 mg tablet 10 mg PO QDAY 05/15/24 10/18/24 lorazepam 2 mg/mL oral concentrate 0.5 mg PO PRN PRN agitation 05/15/24 10/18/24 (Lorazepam Intensol) mirtazapine 30 mg tablet 30 mg PO QDAY SLEEP 05/15/24 10/18/24 aspirin 81 mg capsule 81 mg PO QDAY 10/18/24 10/18/24 quetiapine 100 mg tablet (Seroquel) 100 mg PO BID 10/18/24 10/18/24 Previous Rx's ?Medication ?Instructions ?Recorded glyburide 5 mg tablet 5 mg PO TID #90 tabs 05/17/24 atorvastatin 40 mg tablet 40 mg PO QPM 30 days #30 tabs 10/20/24 blood sugar diagnostic (Accutrend #50 ea 10/20/24 Glucose test strips) blood-glucose meter (Accu-Chek #1 ea 10/20/24 Guide Glucose Meter) insulin glargine 100 unit/mL 10 unit (0.1 mL) subcut QPM 30 10/20/24 subcutaneous solution days #3 mL lancets #100 ea 10/20/24 Allergies Allergy/AdvReac Type Severity Reaction Status Date / Time Penicillins Allergy Mild Hives Verified 10/29/24 07:29 codeine Allergy Unknown Verified 10/29/24 07:29 Review of Systems Review of Systems Systems Reviewed: All systems reviewed, normal except as documented Past Medical History Past Medical History NEUROLOGIC: Positive Dementia Social History SMOKING STATUS: Never smoker SUBSTANCE USE: does not use ALCOHOL: Never ED Exam General Limitations: Present no limitations General appearance: Present in no apparent distress, obese and other (somnolent, but answers appropriately; complies with simple commands but does not open her eyes to verbal command) Head Head exam: Present atraumatic, normocephalic and normal inspection Eye Eye exam: Present PERRL, EOMI and other (pupils are 1 mm bilaterally) ENT ENT exam: Present normal exam, normal oropharynx and mucous membranes moist Neck Neck exam: Present normal inspection, full ROM and trachea midline Chest Chest inspection: Present normal inspection and symmetric chest wall rise Respiratory Respiratory exam: Present normal lung sounds bilaterally Cardiovascular Cardiovascular exam: Present regular rate, normal rhythm and normal heart sounds Abdominal Exam Abdominal exam: Present soft, normal bowel sounds and other (obese) Extremities Exam Extremities exam: Present full ROM and pedal edema (1-2+ pitting edema bilaterally) Back Exam Back exam: Present normal inspection and full ROM Neurological Exam Neurological exam: Present alert, oriented X3 and CN II-XII intact Psychiatric Psychiatric exam: Present normal affect and normal mood Skin Skin exam: Present warm, dry, intact and normal color Course Quality Measures none Orders Category Date Time Status Adjunct Professor NOW Care 10/29/24 07:24 Active Continuous Pulse Oximetry NOW Care 10/29/24 07:24 Completed EKG (ED ONLY) *Do not use* NOW Care 10/29/24 07:24 Completed Insert IV NOW Care 10/29/24 07:[address] head/brain wo con Stat Exams 10/29/24 07:27 Completed EKG (ED Only) Stat Exams 10/29/24 07:24 Draft XR chest 1V portable Stat Exams 10/29/24 07:24 Completed CBC Stat Lab 10/29/24 09:10 Completed Comprehensive Metabolic Panel Stat Lab 10/29/24 09:10 Completed Partial Thromboplastin Time Stat Lab 10/29/24 09:10 Completed Prothrombin Time with INR Stat Lab 10/29/24 09:10 Completed Troponin I Stat Lab 10/29/24 09:10 Completed Urinalysis Stat Lab 10/29/24 07:24 Completed Insulin Regular Med 10/29/24 07:24 Discontinued 10 unit SC X1 ONE Sodium Chloride 0.9% 1000 ml [Ns] 1,000 ml Med 10/29/24 07:23 Discontinued IV 999 mls/hr Oxygen Delivery NOW RT 10/29/24 07:24 Active Vital Signs Vital signs: Vital Signs Temperature 97.4 F 10/29/24 07:18 Pulse Rate 98 10/29/24 07:18 Respiratory Rate 17 10/29/24 07:18 Blood Pressure 147/82 H 10/29/24 07:18 Pulse Oximetry (%) 98 10/29/24 07:18 Oxygen Delivery Method Room Air 10/29/24 07:18 Weakness MDM Narrative MDM Narrative:: I, Lia Lee, am scribing for and in the presence of Dr. Hogan. Blood glucose was 270, plan to discharge for hyperglycemia and near syncope. Patient data External records reviewed:: [facility] previous records and EMS form Clinical information provided by:: patient and EMS Social determinants that could affect healthcare access:: none Patient has the following chronic illnesses:: TIA, dementia, DM2, hyperlipidemia, and recent cholecystectomy. How is presenting disease/condition affected by chronic disease/condition?: exacerbated by Evaluation data The following diagnostics were reviewed and interpreted by me:: lab results, radiology exam(s) and EKG tracing(s) Lab and/or radiology exams considered but not ordered:: none Interpretation Summary: My interpretation: EKG performed at 0805 hours, sinus rhythm, rate 92, no acute changes, no STEMI Procedure(s): CT head/brain wo con Accession Number(s): [id number] cc: Gaurav Hogan MD; Yunior Zambrano MD; NO PRIMARY/FAMILY,PHYSICIAN~ Examination: CT brain head without contrast. 2-D sagittal coronal reconstructions Date and time of exam:813 hrs. Indications: Syncopal episode today, patient fell with injury to the head, head pain CTDI: vol (mGy):44.1. DLP: (mGycm):836. Technique: Multiple CT axial sections of the brain have been obtained, 5 mm slice thickness. Contrast has not been administered. 2-D sagittal, coronal reconstructions have been obtained Low dose protocols were performed. One or more of the following dose reduction techniques were used; automated exposure control, adjustment of the mA and/or KV according to patient size, use of iterative reconstruction technique. Findings: No significant ventricular enlargement. Intra-axial or extra-axial hemorrhage density is not seen. No mass effect or midline shift Basal cisterns are not remarkable. Fourth ventricle is midline. Cranial vault intact. Impression: Negative for acute hemorrhage, mass effect or midline shift Dictated By: Yunior Zambrano MD Procedure(s): XR chest 1V portable Accession Number(s): [id number] cc: Gaurav Hogan MD; Yunior Zambrano MD; NO PRIMARY/FAMILY,PHYSICIAN~ Examination: AP chest single view. Technique: AP portable semiupright chest single view. Date and time: October 29, 2024, 14 hrs., Comparison October 06, 2024 Indications: Coughing congestion today. Findings: Minor prominence left ventricle. No pneumonia or pulmonary edema. Prominent osteopenia. Impression: No active disease. Dictated By: Yunior Zambrano MD Medications / Prescriptions Medications or Prescriptions considered but not ordered:: none Medication administrations:: Medication Administration History Discontinued Medications Sodium Chloride (Ns) 1,000 mls @ 999 mls/hr IV .Q1H1M ONE Stop: 10/29/24 08:23 Last Infusion: 10/29/24 09:13 Dose: Infused Documented By: Admin: 10/29/24 08:12 Dose: 999 mls/hr Documented By: JIMMY Insulin Human Regular (Insulin Hum Regular 1 Unit/0.01 Ml (Per Unit)) 10 unit SC X1 ONE Stop: 10/29/24 07:25 Last Admin: 10/29/24 08:11 Dose: 10 unit Documented By: JIMMY Co-signed By: DEEP see above Consultations Consultation(s) initiated? (list below): No Diagnosis Weakness Differential Diagnosis: other (Hyperosmolar hyperglycemic state (HHS), post-surgical complication, and UTI.) Most likely diagnosis given after review of the tests above:: Hyperglycemia Near syncope Admission Indicated Admission indicated?: not indicated Admission Request Was there a request for admission?: No Disposition Plan Disposition Plan: Discharge Discharge Attestation Discharge Attestation: The patient and all family members were given an opportunity to ask questions and understood the discharge instructions. Discharge instructions specifically effects, indications for sooner follow up or return to the emergency department, and the expected course of current diagnosis. Patient condition: Stable Discharge Plan Plan Patient Disposition: HOME (Self Care) Patient condition on transfer: Stable Prescriptions/Referrals Prescriptions/Med Rec: No Action lorazepam [Lorazepam Intensol] 2 mg/mL concentrate 0.5 mg PO PRN PRN (Reason: agitation) Patient Comments: give 0.5mg(0.25ml) every 6 hours as needed for anxiety/agitation mirtazapine 30 mg tablet 30 mg PO QDAY donepezil 10 mg tablet 10 mg PO QDAY glyburide 5 mg tablet 5 mg PO TID Qty: 90 0RF aspirin 81 mg capsule 81 mg PO QDAY quetiapine [Seroquel] 100 mg tablet 100 mg PO BID atorvastatin 40 mg tablet 40 mg PO QPM 30 Days Qty: 30 0RF insulin glargine 100 unit/mL solution 10 unit subcut QPM 30 Days Qty: 3 0RF (DME) blood-glucose meter [Accu-Chek Guide Glucose Meter] Misc See Rx Instructions .Route Qty: 1 0RF Rx Instructions: As directed (DME) Accutrend Glucose test strips Strip See Rx Instructions .Route Qty: 50 2RF Rx Instructions: As directed (DME) lancets Misc See Rx Instructions .Route Qty: 100 0RF Rx Instructions: As directed Referrals: No Primary/Family,Physician [Primary Care Provider] - In 1 week Problem List Clinical Impression: Hyperglycemia, Near syncope Patient/Caregiver Discharge Instructions Additional Instructions: Please follow-up with your primary care physician within 2-3 days. Return to the Emergency Department as needed. Print Language: Luxembourger Stand Alone Forms: Roxane Award Info., Patient Portal Info Letter
[2024-10-29 07:24] VITALS: PULSE 96; RESP 98
--- NOTE | 2024-10-29 07:24 | XR_ITS ---
Examination: AP chest single view. Technique: AP portable semiupright chest single view. Date and time: October 29, 2024, 0814 hrs., Comparison October 06, 2024 Indications: Coughing congestion today. Findings: Minor prominence left ventricle. No pneumonia or pulmonary edema. Prominent osteopenia. Impression: No active disease.
--- NOTE | 2024-10-29 07:24 | EKG_ITS ---
[facility] Test Date: 2024-10-29 Pat Name: BRITANY FAGAN Department: Room: - Gender: Female Medical Office Specialist: : [id number] Requested By: Gaurav Brandt Order Number: [id number] Reading MD: Gaurav Brandt Measurements Intervals [place] Rate: 92 P: 49 WA: 169 QRS: -58 QRSD: 105 T: 22 QT: 351 QTc: 435 Interpretive Statements SINUS RHYTHM LEFT ANTERIOR FASCICULAR BLOCK [QRS AXIS <= -45, QR IN I, RS IN II] MINIMAL VOLTAGE CRITERIA FOR LVH, CONSIDER NORMAL VARIANT [MEETS CRITERIA IN ONE OF: R(aVL), S(V1), R(V5), R(V5/V6)+S(V1)] POSSIBLE ANTERIOR MYOCARDIAL INFARCTION , PROBABLY OLD [30 ms Q WAVE IN V3/V4, OR R < 0.2 mV IN V4] Compared to ECG 10/18/2024 12:44:43 No significant changes /store/S0/[id number].pdf
[2024-10-29 07:27] VITALS: O2SAT 98
--- NOTE | 2024-10-29 07:27 | XR_ITS ---
Examination: CT brain head without contrast. 2-D sagittal coronal reconstructions Date and time of exam:2024, 0814 hrs. Indications: Syncopal episode today, patient fell with injury to the head, head pain CTDI: vol (mGy):44.1. DLP: (mGycm):836. Technique: Multiple CT axial sections of the brain have been obtained, 5 mm slice thickness. Contrast has not been administered. 2-D sagittal, coronal reconstructions have been obtained Low dose protocols were performed. One or more of the following dose reduction techniques were used; automated exposure control, adjustment of the mA and/or KV according to patient size, use of iterative reconstruction technique. Findings: No significant ventricular enlargement. Intra-axial or extra-axial hemorrhage density is not seen. No mass effect or midline shift Basal cisterns are not remarkable. Fourth ventricle is midline. Cranial vault intact. Impression: Negative for acute hemorrhage, mass effect or midline shift
--- NOTE | 2024-10-29 07:54 | PC.NURSE ---
PT [facility] FROM HOME, WAS FOUND SITTING ON GROUND IN BATHROOM, POSSIBLE FALL, NOT CONFIRMED IT WAS NOT WITNESSED. PER EMS IT APPEARED SHE WAS GETTING OUT OF SHOWER HER HAIR AND BODY WERE WET. NO VISIBLE INJURIES NOTED, DENIES ANY PAIN, GCS 14 AT BASELINE, PT HAS HX OF DEMENTIA, PER HAS GOOD AND BAD DAYS. PT HAS MULTIPLE INCISIONS TO ABDOMEN PT IS S/P CHOLEYCYSTECTOMY. VSS ON TELE WILL CONT W/POC
[2024-10-29 08:04] LABS: Collection Type, Urine Clean Catch
[2024-10-29] MEDS: INSULIN HUM REGULAR 1 UNIT/0.01 ML (PER UNIT) 10 UNIT SC (08:11)
[2024-10-29] MEDS: SODIUM CHLORIDE 0.9% 1000 ML 1,000 ML 999 ML IV (08:12)
[2024-10-29 08:19] LABS: Bilirubin,Urine Negative (Negative); Blood,Urine Negative (Negative); Clarity,Urine Clear (Clear/Hazy); Color,Urine Lt-Yellow (Lt Yel-Yel); Glucose, Urine 4+ (Negative); Ketones,Urine Negative (Negative); Leukocyte Esterase,Urine Negative (Negative); Nitrite,Urine Negative (Negative); PH,Urine 5.5 (5.0-7.0); Protein,Urine Trace (Neg - Trace); RBC,Urine 1 /hpf (0-3); Specific Gravity,Urine 1.026 (1.001-1.035); Squamous Epithelial Cell,Urine 3 /hpf (0-5); Urobilinogen,Urine Negative mg/dL (0.0-1.0); WBC,Urine 1 /hpf (0-5)
[2024-10-29 09:19] LABS: Basophils # (Auto) 0.0 Thou/mm3 (0.0-0.2); Basophils % (Auto) 0 % (0-2.5); Eosinophils # (Auto) 0.1 Thou/mm3 (0.0-0.5); Eosinophils % (Auto) 1 % (0-10); Hematocrit 32.5 % (36.0-46.0); Hemoglobin 11.1 g/dL (12.0-16.0); Immature Granulocytes Auto 0.09 Thou/mm3 (0.00-0.00); Lymphocytes # (Auto) 1.7 Thou/mm3 (1.0-4.8); Lymphocytes % (Auto) 12 % (10-50); Mean Corpuscular HGB Conc 34.2 g/dl (31.0-37.0); Mean Corpuscular Hemoglobin 28.2 pg (25.0-35.0); Mean Corpuscular Volume 83 fL (80-100); Monocytes # (Auto) 0.8 Thou/mm3 (0.0-0.8); Monocytes % (Auto) 6 % (0-12); Neutrophils # (Auto) 11.6 Thou/mm3 (1.8-7.7); Neutrophils % (Auto) 81 % (37-80); Nucleated Red Blood Cell # 0.00 Thou/mm3 (0.00-0.00); Nucleated Red Blood Cell % 0 /100 WBC (0); Platelet Count 275 Thou/mm3 (140-440); RDW Standard Deviation 40.5 fL (36.4-46.3); Red Blood Count 3.94 Miln/mm3 (4.00-5.20); White Blood Count 14.4 Thou/mm3 (3.6-11.0)
--- NOTE | 2024-10-29 09:32 | PC.NURSE ---
spoke w/ who is at bedside and provided update on what has been done and the poc, he is in agreement, and remains at bedside.
[2024-10-29 09:36] LABS: INR 1.1 (0.9-1.3); Partial Thromboplastin Time 27.8 Seconds (22.0-36.0); Prothrombin Time 11.9 Seconds (9.0-12.2)
[2024-10-29 09:39] LABS: Alanine Aminotransferase 12 U/L (10-49); Albumin, Serum 4.0 gm/dL (3.4-4.8); Albumin/Globulin Ratio 2.0 (1.2-2.2); Alkaline Phosphatase 284 U/L (46-116); Anion Gap 12 (7-16); Aspartate Amino Transferase 14 U/L (0-34); BUN/Creatinine Ratio 6 Ratio (12-20); Bilirubin,Total 0.7 mg/dL (0.3-1.2); Blood Urea Nitrogen 8 mg/dL (9-23); Calcium 8.4 mg/dL (8.3-10.6); Calcium (Corrected) 8.4 mg/dL (8.5-10.1); Carbon Dioxide 22.1 mMol/L (20.0-31.0); Chloride 102 mMol/L (98-107); Creatinine (Component) 1.3 mg/dL (0.6-1.3); Globulin 2.0 gm/dL (2.3-3.5); Osmolality,Calculated 290 (275-295); Potassium 3.6 mMol/L (3.4-5.1); Sodium 136 mMol/L (136-145); Total Protein 6.0 gm/dL (5.7-8.2); Troponin I 0.021 ng/mL (0.0-0.045); eGFR 43 See Note
[2024-10-29 09:42] LABS: Glucose 450 mg/dL (74-106)
[2024-10-29 10:44] VITALS: BP 163/81; PULSE 90; RESP 17; TEMP 36.7; O2SAT 100
[2024-10-29 12:22] VITALS: BP 151/87; PULSE 92; RESP 16; TEMP 36.8; O2SAT 96
== END 2024-10-29 12:35 | disposition home or self-care (01) ==
PROVIDERS: Emergency Provider Family Medicine
DX: E11.65 Type 2 diabetes mellitus with hyperglycemia (principal); S09.90XA Unspecified injury of head, initial encounter; R55 Syncope and collapse; R05.9 Cough, unspecified; R09.89 Other specified symptoms and signs involving the circulatory and respiratory systems; I44.4 Left anterior fascicular block; W19.XXXA Unspecified fall, initial encounter; Z79.84 Long term (current) use of oral hypoglycemic drugs; Z79.4 Long term (current) use of insulin
CPT/HCPCS: 36415; 70450; 71045; 80053; 81001; 84484; 85025; 85610; 85730; 93005; 96360; 99284; J1815; J7030

== ENCOUNTER 2025-03-19 13:31 | Inpatient (IN) | payer MEDICARE, OTHER, SELFPAY ==
[2025-03-19] VITALS (8 sets, daily range): BP systolic 134–167; BP diastolic 56–105; PULSE 87–98; RESP 14–99; TEMP 36.3–36.8; O2SAT 95–100; BMI 26.5; BMI 31.4
--- NOTE | 2025-03-19 13:59 | PD.EDWEAK ---
ED Weakness RME/HPI General Chief complaint: Weakness Stated complaint: FAILURE TO THRIVE Time Seen by Provider: 03/19/25 13:58 Arrival date/time: 03/19/25 13:31 RME / HPI RME / HPI Narrative: See [facility] for Dr. Katz's HPI Documentation. Related Data Home Medications ?Medication ?Instructions ?Recorded ?Confirmed donepezil 10 mg tablet 10 mg PO QDAY 05/15/24 10/18/24 lorazepam 2 mg/mL oral concentrate 0.5 mg PO PRN PRN agitation 05/15/24 10/18/24 (Lorazepam Intensol) mirtazapine 30 mg tablet 30 mg PO QDAY SLEEP 05/15/24 10/18/24 aspirin 81 mg capsule 81 mg PO QDAY 10/18/24 10/18/24 quetiapine 100 mg tablet (Seroquel) 100 mg PO BID 10/18/24 10/18/24 Previous Rx's ?Medication ?Instructions ?Recorded glyburide 5 mg tablet 5 mg PO TID #90 tabs 05/17/24 blood sugar diagnostic (Accutrend #50 ea 10/20/24 Glucose test strips) blood-glucose meter (Accu-Chek #1 ea 10/20/24 Guide Glucose Meter) lancets #100 ea 10/20/24 insulin regular human 100 unit/mL 1 sliding scale dose subcut 10/29/24 injection solution (Humulin R USEASDIRECTD diabetes #10 mL Regular U-100 Insulin) Allergies Allergy/AdvReac Type Severity Reaction Status Date / Time Penicillins Allergy Mild Hives Verified 10/29/24 07:29 codeine Allergy Unknown Verified 10/29/24 07:29 Review of Systems Review of Systems Systems Reviewed: All systems reviewed, normal except as documented Past Medical History Past Medical History NEUROLOGIC: Positive Dementia Social History SMOKING STATUS: Unknown if ever smoked SUBSTANCE USE: does not use ED Exam Narrative Physical exam: See [facility] for Dr. Katz's HPI Documentation. Course Quality Measures none Orders Category Date Time Status EKG (ED ONLY) *Do not use* NOW Care 03/19/25 14:01 Completed Saline [Insert IV] NOW Care 03/19/25 14:00 Active Straight [In and Out Catheter] X1 Care 03/19/25 14:[address] cervical spine wo con Stat Exams 03/19/25 14:[address] chest abdomen pelvis wo Stat Exams 03/19/25 14:[address] head/brain wo con Stat Exams 03/19/25 14:02 Completed EKG (ED Only) Stat Exams 03/19/25 14:01 Draft XR chest 1V portable Stat Exams 03/19/25 14:01 Completed ABG [Arterial Blood Gas] Stat Lab 03/19/25 16:05 Completed Ammonia Stat Lab 03/19/25 14:16 Completed BNP [B-Type Natriuretic Peptide] Stat Lab 03/19/25 14:16 Completed Bilirubin,Direct Stat Lab 03/19/25 14:16 Completed Blood Culture (Lab) Stat Lab 03/19/25 15:04 Received CBC Stat Lab 03/19/25 14:16 Completed CK [Creatine Kinase] Stat Lab 03/19/25 14:16 Completed CMP [Comprehensive Metabolic Panel] Stat Lab 03/19/25 14:16 Completed COVID-19 Antigen (In-House) Stat Lab 03/19/25 14:44 Completed CRP [C-Reactive Protein] Stat Lab 03/19/25 14:16 Completed ESR [Sed Rate (ESR)] Stat Lab 03/19/25 14:16 Completed Hemoglobin A1C [Glycohemoglobin w (eAG)] Stat Lab 03/19/25 14:16 Completed Influenza A & B Rapid Panel Stat Lab 03/19/25 14:44 Completed Lactate (Lactic Acid) Stat Lab 03/19/25 14:16 Completed Lipase Stat Lab 03/19/25 14:16 Completed Magnesium Stat Lab 03/19/25 14:16 Completed Procalcitonin Stat Lab 03/19/25 14:16 Completed TSH [Thyroid Stimulating Hormone] Stat Lab 03/19/25 14:16 Completed Troponin I Stat Lab 03/19/25 14:16 Completed UA, C/S IF [Urinalysis, C/S if Indicated] Stat Lab 03/19/25 14:17 Completed Magnesium Sulfate 4 GM Ivpb [Magnesium Sulfate Ivpb] Med 03/19/25 15:34 Active 4 gm in 50 ml IV X1 Ondansetron Inj [Zofran Inj] Med 03/19/25 14:00 Discontinued 4 mg IVP X1 ONE Ringers Lactated 1000 ml [Lactated Ringers] 1,000 ml Med 03/19/25 14:00 Discontinued IV 1,000 mls/hr Vital Signs Vital signs: Vital Signs Temperature 97.8 F 03/19/25 13:49 Pulse Rate 96 03/19/25 13:49 Respiratory Rate 14 03/19/25 13:49 Blood Pressure 152/56 H 03/19/25 13:49 Pulse Oximetry (%) 98 03/19/25 13:49 Oxygen Delivery Method Room Air 03/19/25 13:49 Weakness MDM Narrative MDM Narrative:: This section includes all my notes and documentations, including HPI, PE, and ED course. Maykel Katz MD HPI: 74-year-old female here to be evaluated with several days of worsening generalized weakness and decreased oral intake and increased confusion. Has dementia. Unable to obtain history from the patient due to dementia and AMS. History is from the patient's , EMS obtained story from him. Patient's not present. ROS: Unable to obtain from the patient due to current clinical condition. Physical Exam: General: Patient appears lethargic. Disoriented to person and place and time. Eyes: Conjunctivae and lids clear. EOMI. PERRL. ENT: No signs of head trauma. Dry mucous membranes. Neck: Supple. No tenderness. Heart: RRR. Lungs: No respiratory distress. Good air movement with bibasilar rales. Chest: No obvious tenderness. Abdomen: Soft and nontender. Normal bowel sounds. No distension. No rebound or guarding. Back: No tenderness. Skin: Warm and dry. Many ecchymoses noted diffusely, varying in size and shape and age. Neuro: Cranial Nerves II-XII grossly intact. No peripheral motor deficits. Musculoskeletal: All major joints and bones are not tender with no limited ROM. I reviewed EMS notes. I reviewed all diagnostic test results: My interpretation of the EKG is: Sinus rhythm (95 bpm) with nonspecific ST-T changes. My interpretation of the chest x-ray is infiltrates. My review of the cervical CT report is no fracture. My review of the chest/abdomen/pelvis CT report is right 11th rib fracture. My review of the head CT report is NAD. Blood tests and urine tests remarkable for Glu 258, Mg 0.8. Covid/Influenza negative At this point, diagnoses include: AMS Failure to thrive Frequent falls Dehydration Hypomagnesemia Right 11th rib fracture Pneumonia Hyperglycemia Treatment here included: IVF Zofran 4 mg IV MgSO4 4 gram IV Significant improvement not noted. I discussed the case with our hospitalist. About the presentation and exam and diagnostics and treatments here. And need of further care in the hospital. Will accept the patient. Maykel Katz MD Patient data External records reviewed:: [facility] previous records Clinical information provided by:: patient and EMS Social determinants that could affect healthcare access:: none Patient has the following chronic illnesses:: dementia, DM2, and hyperlipidemia How is presenting disease/condition affected by chronic disease/condition?: exacerbated by Evaluation data The following diagnostics were reviewed and interpreted by me:: lab results, radiology exam(s) and EKG tracing(s) (My interpretation of the EKG is: Sinus rhythm (95 bpm) with nonspecific ST-T changes. Maykel Katz MD) Lab and/or radiology exams considered but not ordered:: none Interpretation Summary: I reviewed all diagnostic test results: My interpretation of the EKG is: Sinus rhythm (95 bpm) with nonspecific ST-T changes. My interpretation of the chest x-ray is infiltrates. My review of the cervical CT report is no fracture. My review of the chest/abdomen/pelvis CT report is right 11th rib fracture. My review of the head CT report is NAD. Blood tests and urine tests remarkable for Glu 258, Mg 0.8. Covid/Influenza negative Medications / Prescriptions Medications or Prescriptions considered but not ordered:: none Medication administrations:: Medication Administration History Magnesium Sulfate (Magnesium Sulfate Ivpb) 4 gm in 50 mls @ 12.5 mls/hr IV X1 ONE Stop: 03/19/25 19:33 Last Admin: 03/19/25 15:41 Dose: 12.5 mls/hr Documented By: DEEP Discontinued Medications Lactated Ringer's (Lactated Ringers) 1,000 mls @ 1,000 mls/hr IV .Q1H ONE Stop: 03/19/25 14:59 Last Infusion: 03/19/25 16:28 Dose: Infused Documented By: Admin: 03/19/25 14:58 Dose: 1,000 mls/hr Documented By: DEEP Ondansetron HCl (Ondansetron Inj 2 Mg/Ml Inj 2 Ml) 4 mg IVP X1 ONE; Protocol Stop: 03/19/25 14:01 Last Admin: 03/19/25 14:56 Dose: 4 mg Documented By: DEEP Treatment here included: IVF Zofran 4 mg IV MgSO4 4 gram IV Consultations Consultation(s) initiated? (list below): Yes Consultation #1 (Physician, Specialty, Details): I discussed the case with our hospitalist. About the presentation and exam and diagnostics and treatments here. And need of further care in the hospital. Will accept the patient. Diagnosis Weakness Differential Diagnosis: acute myocardial infarction, anemia, hypoglycemia, hypothyroidism, rhabdomyolysis, sepsis and dehydration Most likely diagnosis given after review of the tests above:: AMS Failure to thrive Frequent falls Dehydration Hypomagnesemia Right 11th rib fracture Pneumonia Hyperglycemia Admission Indicated Admission indicated?: indicated Explain why admission is indicated or not indicated:: AMS Failure to thrive Frequent falls Dehydration Hypomagnesemia Right 11th rib fracture Pneumonia Hyperglycemia Admission Request Was there a request for admission?: Yes Admission Attestation Admission request attestation: I discussed the case with our hospitalist. About the presentation and exam and diagnostics and treatments here. And need of further care in the hospital. Will accept the patient. Disposition Plan Disposition Plan: Admit Discharge Plan Prescriptions/Referrals Prescriptions/Med Rec: No Action lorazepam [Lorazepam Intensol] 2 mg/mL concentrate 0.5 mg PO PRN PRN (Reason: agitation) Patient Comments: give 0.5mg(0.25ml) every 6 hours as needed for anxiety/agitation mirtazapine 30 mg tablet 30 mg PO QDAY donepezil 10 mg tablet 10 mg PO QDAY glyburide 5 mg tablet 5 mg PO TID Qty: 90 0RF Humulin R Regular U-100 Insuln 100 unit/mL solution 1 sliding scale dose subcut USEASDIRECTD MDD per sliding scale Qty: 10 2RF aspirin 81 mg capsule 81 mg PO QDAY quetiapine [Seroquel] 100 mg tablet 100 mg PO BID (DME) blood-glucose meter [Accu-Chek Guide Glucose Meter] Misc See Rx Instructions .Route Qty: 1 0RF Rx Instructions: As directed (DME) Accutrend Glucose test strips Strip See Rx Instructions .Route Qty: 50 2RF Rx Instructions: As directed (DME) lancets Misc See Rx Instructions .Route Qty: 100 0RF Rx Instructions: As directed Referrals: Emilia Cardona MD [Primary Care Provider, Family Practice] - In 1 week Problem List Clinical Impression: AMS (altered mental status), Failure to thrive, Frequent falls, Dehydration, Hypomagnesemia, Fracture of right eleventh rib, Pneumonia, Hyperglycemia Patient/Caregiver Discharge Instructions Print Language: Nigerien
--- NOTE | 2025-03-19 14:01 | XR_ITS ---
EXAMINATION: AP chest single view TECHNIQUE: AP portable semiupright chest single view Date and time: March 19, 2025, 1446 hours, comparison October 29, 2024 INDICATIONS: Shortness of breath chest pain today. FINDINGS: Suspicious for early bilateral perihilar upper lobe pneumonia No significant cardiac enlargement Prominent osteopenia IMPRESSION: Suspicious for early bilateral perihilar upper lobe pneumonia
--- NOTE | 2025-03-19 14:01 | EKG_ITS ---
[facility] Test Date: 2025-03-19 Pat Name: BRITANY FAGAN Department: Room: - Gender: Female Director [employer]: : 1950 Requested By: Maykel Butler Order Number: [id number] Reading MD: Maykel Butler Measurements Intervals [place] Rate: 95 P: 37 ME: 158 QRS: -60 QRSD: 114 T: 73 QT: 365 QTc: 460 Interpretive Statements SINUS RHYTHM WITH OCCASIONAL SUPRAVENTRICULAR PREMATURE COMPLEXES PATTERN CONSISTENT WITH PULMONARY DISEASE LEFT ANTERIOR FASCICULAR BLOCK [QRS AXIS <= -45, QR IN I, RS IN II] NONSPECIFIC T-WAVE ABNORMALITY Compared to ECG 10/29/2024 08:05:12 T-wave abnormality now present Myocardial infarct finding no longer present /store/S0/[id number]/ecg/[id number].pdf
--- NOTE | 2025-03-19 14:02 | XR_ITS ---
Examination: CT cervical spine without contrast 2-D sagittal reconstructions 2-D coronal reconstructions 3-D reconstructions. Exam date and time: March 19, 2025, 1430 hours INDICATIONS: Patient fell today with injury to the neck, neck pain CTDI:vol (mGy) 13.8 DLP: (mGycm) 288 Technique: Multiple 2 mm axial sections of the cervical spine have been obtained. The coronal and sagittal reconstructions have been obtained. 3-D reconstructions have been obtained. Low dose protocols were performed. One or more of the following dose reduction techniques were used; automated exposure control, adjustment of the mA and/or KV according to patient size, use of iterative reconstruction technique. Findings: Axial sections demonstrate intact base of the skull. C1 exhibit satisfactory relationship to the odontoid. No acute cervical vertebral body fracture seen. Alignment posterior spinous processes satisfactory. Impression: No acute cervical fracture.
--- NOTE | 2025-03-19 14:02 | XR_ITS ---
Examination: CT chest, without intravenous contrast. CT abdomen, without intravenous contrast. CT pelvis, without intravenous contrast. 2-D sagittal and coronal reconstructions. 3-D reconstructions. Date and time of exam: March 19, 2025, 1431 hours INDICATIONS: Patient fell 1 week ago with chest and abdomen pain CTDI vol (mgy) 18.4 DLP (MGycm) 1331 Technique: Multiple CT images, 3.0 mm slice thickness, obtained chest, abdomen, pelvis, with the high-resolution 64 slice scanner.. Sagittal and coronal 2-D reconstructions are obtained. 3-D reconstructions Low dose protocols were performed. One or more of the following dose reduction techniques were used; automated exposure control, adjustment of the mA and/or KV according to patient size, use of iterative reconstruction technique. Findings: Thoracic aorta pulmonary arteries intact Trace pericardial fluid No pneumothorax or pulmonary contusion There is minimal right pleural fluid The manubrium and the body of the sternum appear intact Rib detail is diminished secondary to patient motion, findings are suspicious for acute fracture right 11th rib posteriorly No thoracic lumbar or sacral acute fracture noted There is an old appearing fracture of the fourth sacral segment No visualized liver splenic or renal laceration, no perinephric hematoma Absent gallbladder No pancreatic mass Abdominal aorta intact and Negative for pneumoperitoneum No free blood in the abdomen or pelvis No pericecal inflammatory change Colonic diverticulosis Atrophic uterus Intact urinary bladder Bones of the pelvis and hips appear intact, old appearing fracture left superior pubic ramus IMPRESSION: The entire study is degraded by patient motion Thoracic aorta pulmonary arteries appear intact No pneumothorax Findings suspicious for fracture right 11th rib posteriorly, there is mild right pleural fluid/hemothorax No abdominal parenchymal laceration Abdominal aorta intact No free blood in the abdomen or pelvis
--- NOTE | 2025-03-19 14:02 | XR_ITS ---
Examination: CT brain head without contrast. 2-D sagittal coronal reconstructions Date and time of exam: March 19, 2025, 1412 hours INDICATIONS: Patient fell today with injury of the head followed by altered mental status CTDI: vol (mGy): 44.7 DLP: (mGycm): 868 Technique: Multiple CT axial sections of the brain have been obtained, 5 mm slice thickness. Contrast has not been administered. 2-D sagittal, coronal reconstructions have been obtained Low dose protocols were performed. One or more of the following dose reduction techniques were used; automated exposure control, adjustment of the mA and/or KV according to patient size, use of iterative reconstruction technique. Findings: No significant ventricular enlargement. Intra-axial or extra-axial hemorrhage density is not seen. No mass effect or midline shift Basal cisterns are not remarkable. Fourth ventricle is midline. Cranial vault intact. Impression: Negative for acute hemorrhage, mass effect or midline shift
--- NOTE | 2025-03-19 14:24 | PC.NURSE ---
Pt.'s is bedside and states that he takes care of pt. at home, states that pt.'s bruises to her legs are because pt. has been falling out of bed, states that he ordered a hospital bed and pt. has been climbing over the rails. states he and pt. have a daughter that help them at home. Gave coffee to pt.'s he states thank you. Pt. states he hasn't been able to get pt. to eat X 1 week. comes in on O2 via [place].
--- NOTE | 2025-03-19 14:25 | PC.NURSE ---
PATIENT TO CT VIA [facility] AT THIS TIME.
[2025-03-19 14:27] LABS: Collection Type, Urine Clean Catch; RBC,Urine 0 /hpf (0-3)
[2025-03-19 14:32] LABS: Lactate (Lactic Acid) 1.8 mMol/L (0.4-2.0)
[2025-03-19 14:40] LABS: Basophils # (Auto) 0.0 Thou/mm3 (0.0-0.2); Basophils % (Auto) 1 % (0-2.5); Eosinophils # (Auto) 0.0 Thou/mm3 (0.0-0.5); Eosinophils % (Auto) 1 % (0-10); Hematocrit 37.4 % (36.0-46.0); Hemoglobin 12.2 g/dL (12.0-16.0); Immature Granulocytes Auto 0.03 Thou/mm3 (0.00-0.00); Lymphocytes # (Auto) 1.6 Thou/mm3 (1.0-4.8); Lymphocytes % (Auto) 26 % (10-50); Mean Corpuscular HGB Conc 32.6 g/dl (31.0-37.0); Mean Corpuscular Hemoglobin 28.3 pg (25.0-35.0); Mean Corpuscular Volume 87 fL (80-100); Monocytes # (Auto) 0.4 Thou/mm3 (0.0-0.8); Monocytes % (Auto) 7 % (0-12); Neutrophils # (Auto) 4.1 Thou/mm3 (1.8-7.7); Neutrophils % (Auto) 65 % (37-80); Nucleated Red Blood Cell # 0.00 Thou/mm3 (0.00-0.00); Nucleated Red Blood Cell % 0 /100 WBC (0); Platelet Count 317 Thou/mm3 (140-440); RDW Standard Deviation 46.5 fL (36.4-46.3); Red Blood Count 4.31 Miln/mm3 (4.00-5.20); White Blood Count 6.2 Thou/mm3 (3.6-11.0)
[2025-03-19 14:47] LABS: Bacteria,Urine Rare; Bilirubin,Urine Negative (Negative); Blood,Urine Negative (Negative); Clarity,Urine Clear (Clear/Hazy); Color,Urine Lt-Yellow (Lt Yel-Yel); Culture Indicated,Urine Not Indicated; Glucose, Urine 2+ (Negative); Ketones,Urine Negative (Negative); Leukocyte Esterase,Urine Negative (Negative); Nitrite,Urine Negative (Negative); PH,Urine 5.5 (5.0-7.0); Protein,Urine Negative (Neg - Trace); Specific Gravity,Urine 1.010 (1.001-1.035); Squamous Epithelial Cell,Urine 2 /hpf (0-5); Urobilinogen,Urine Negative mg/dL (0.0-1.0); WBC,Urine < 1 /hpf (0-5)
[2025-03-19 14:54] LABS: Ammonia < 10 uMol/L (11-32); Sed Rate (ESR) 26 mm/hr (0-30)
[2025-03-19] MEDS: ONDANSETRON INJ 2 MG/ML INJ 2 ML 4 MG IVP (14:56)
[2025-03-19] MEDS: RINGERS LACTATED 1000 ML 1,000 ML IV (14:58)
[2025-03-19 15:09] LABS: Glucose Estimated Average 194 mg/dL (80-131); Hemoglobin A1C 8.4 % Hgb (4.8-6.0)
[2025-03-19 15:32] LABS: Alanine Aminotransferase 14 U/L (10-49); Albumin, Serum 4.2 gm/dL (3.4-4.8); Albumin/Globulin Ratio 1.8 (1.2-2.2); Alkaline Phosphatase 75 U/L (46-116); Anion Gap 12 (7-16); Aspartate Amino Transferase 21 U/L (0-34); BUN/Creatinine Ratio 10 Ratio (12-20); Bilirubin,Direct 0.1 mg/dL (0.0-0.3); Bilirubin,Total 0.4 mg/dL (0.3-1.2); Blood Urea Nitrogen 10 mg/dL (9-23); C-Reactive Protein 1.5 mg/dL (0.0-0.9); Calcium 9.2 mg/dL (8.3-10.6); Calcium (Corrected) 9.2 mg/dL (8.5-10.1); Carbon Dioxide 27.2 mMol/L (20.0-31.0); Chloride 103 mMol/L (98-107); Creatine Kinase 171 U/L (34-171); Creatinine (Component) 1.0 mg/dL (0.6-1.3); Estimated Creatinine Clearance 44.3 mL/min (>60); Globulin 2.3 gm/dL (2.3-3.5); Glucose 258 mg/dL (74-106); Lipase 22 U/L (12-53); Osmolality,Calculated 291 (275-295); Potassium 4.2 mMol/L (3.4-5.1); Procalcitonin 0.08 ng/ml (0.0-0.49); Sodium 142 mMol/L (136-145); Thyroid Stimulating Hormone 4.39 uIU/mL (0.55-4.78); Total Protein 6.5 gm/dL (5.7-8.2); Troponin I < 0.020 ng/mL (0.0-0.045); eGFR 58 See Note
[2025-03-19 15:33] LABS: Magnesium 0.8 mg/dL (1.6-2.6)
[2025-03-19] MEDS: Magnesium Sulfate 4 GM Ivpb 4 GM/50 ML BAG IV ×2 (15:41→18:58)
[2025-03-19 15:52] LABS: COVID-19 Antigen (In-House) Negative (Negative); Influenza A Ag Negative; Influenza B Ag Negative
[2025-03-19 15:54] LABS: B-Type Natriuretic Peptide < 20 pg/mL (0-100)
[2025-03-19 16:09] LABS: Base Excess 2 (-3-3); HCO3 27 mEq/L (20-26); Inspired Oxygen, FIO2 21 %; O2 Saturation 97 % (91-98); PCO2 42 mmHg (32.0-48.0); PO2 90 mmHg (83-108); pH, Arterial 7.42 (7.35-7.45)
[2025-03-19 16:19] LABS: Allen Test Performed/OK; Puncture Site Right Radial
--- NOTE | 2025-03-19 18:25 | ESHP_ITS ---
<Statement entered by Irineo Graham MD - 04/01/25 09:22> I reviewed above note and agree with findings and plans. I have also personally examined the patient with medicine team and went over assessment and plan with medical team including internet merchant and resident physician. Documentation for date of: 03/19/25 HPI History of Present Illness Chief complaint: Failure to thrive, dehydration. History of present illness: History is obtained from EMS documentation and a detailed conversation with the patient?s , as the patient is AO ?1 to self and unable to provide reliable information due to dementia. 74-year-old female with advanced dementia on home hospice presenting with 4?5 days of markedly decreased oral intake, worsening confusion, recurrent falls, and progressive functional decline concerning for failure to thrive, dehydration, hyperglycemia, hypomagnesemia, and pneumonia, admitted for stabilization and brqzi-cw-wesj evaluation. The reports 4?5 days of dramatically decreased oral intake, with minimal to no eating or drinking. During this period, he notes worsening generalized weakness, inability to get out of bed independently, and inability to ambulate without full assistance. She has had frequent falls (approximately five) and attempts to climb out of bed at home. Communication has declined significantly, she is no longer able to hold meaningful conversations. Her dementia has noticeably worsened over the past year, but this current decline is more severe and acute. She typically has 1?2 days of poor intake at times, but never this long or severe. Over the last few months, he has needed to guide her physically to walk, but prior to that she was independent. He also reports foul-smelling urine at home and prior kidney issues but denies fever or abdominal pain. She is diabetic on metformin and takes baby aspirin. She has a history of two TIAs, the most recent approximately 3 months ago. The is the primary caregiver for both himself and the patient, despite undergoing cancer treatment himself. He reports caregiver fatigue and states he is struggling to continue care at home. They have hospice services through [facility], and he is actively seeking long-term placement options, though insurance limitations have made this difficult. In the ED, she appeared lethargic, disoriented, with dry mucous membranes and bibasilar rales. Initial studies showed pneumonia, right 11th rib fracture, hypomagnesemia, and hyperglycemia. UA was negative, inflammatory markers low, and no acute intracranial process. Despite fluids and magnesium, no significant improvement was observed. Given dehydration, electrolyte derangements, AMS, and inability to safely care for herself at home, the patient is being admitted for stabilization. Review of Systems Unable to obtain due to dementia and altered mental status. Past Medical History * Advanced dementia * Type 2 diabetes mellitus * Hypertension * Two prior TIAs * History of kidney dysfunction (per ) * On outpatient hospice ([facility]) * Failure to thrive (chronic, worsening) Medications (per but pending med recs) * Metformin * Baby aspirin * Hospice comfort medications (exact list pending hospice reconciliation) Allergies Unknown. Social History * Lives with and daughter * is primary caregiver * Retired ? has Medicare + * Hospice involvement * No tobacco/alcohol history obtainable Family History: Noncontributory. Exam Vital Signs Temp Pulse Resp BP Pulse Ox O2 Del Method 97.3 F 91 16 151/86 H 100 Room Air 03/19/25 18:14 03/19/25 18:14 03/19/25 18:14 03/19/25 18:14 03/19/25 18:14 03/19/25 18:14 Narrative Exam General: Lethargic, chronically ill-appearing. AO ?1 (self). HEENT: Dry mucous membranes. No trauma. Eyes: PERRL, EOMI. Neck: Supple, no tenderness. Heart: RRR, no murmurs. Lungs: Clear to auscultation; no respiratory distress. Abdomen: Soft, nontender, nondistended; normal bowel sounds. Skin: Warm, dry. Multiple ecchymoses of varying ages. Neuro: CN II?XII grossly intact. No focal motor deficits. MSK: No joint tenderness or restricted ROM. Psych: Unable to assess due to AMS. Results: Labs 03/19/25 14:16 03/19/25 14:16 Labs: Short CBC 03/19/25 Range/Units 14:16 WBC 6.2 (3.6-11.0) Thou/mm3 Hgb 12.2 (12.0-16.0) g/dL Hct 37.4 (36.0-46.0) % Plt Count 317 (140-440) Thou/mm3 BMP 03/19/25 14:16 Sodium 142 Potassium 4.2 Chloride 103 Carbon Dioxide 27.2 BUN 10 Creatinine 1.0 Glucose 258 H Calcium 9.2 Cardiac Enzymes 03/19/25 Range/Units 14:16 Total Creatine Kinase 171 (34-171) U/L Troponin I < 0.020 (0.0-0.045) ng/mL Liver Function 03/19/25 Range/Units 14:16 Total Bilirubin 0.4 (0.3-1.2) mg/dL Direct Bilirubin 0.1 (0.0-0.3) mg/dL AST 21 (0-34) U/L ALT 14 (10-49) U/L Alkaline Phosphatase 75 (46-116) U/L Albumin 4.2 (3.4-4.8) gm/dL Urine 03/19/25 Range/Units 14:17 Urine Color Lt-Yellow (Lt Yel-Yel) Urine Clarity Clear (Clear/Hazy) Urine pH 5.5 (5.0-7.0) Ur Specific [place] 1.010 (1.001-1.035) Urine Protein Negative (Neg - Trace) Urine Glucose (UA) 2+ A (Negative) ABG Interpretation ABG results: 03/19/25 16:05 ABG pH 7.42 ABG pCO2 42 ABG pO2 90 ABG HCO3 27 H ABG O2 Saturation 97 ABG Base Excess 2 Quality Measures Quality Measures VTE prophylaxis Advance care planning discussed with:: patient and spouse Medications Home Medications and Allergies Home Medications ?Medication ?Instructions ?Recorded ?Confirmed ?Type donepezil 10 mg tablet 10 mg PO QDAY 05/15/2410/18 History lorazepam 2 mg/mL oral concentrate 0.5 mg PO PRN PRN a gitation 05/15/24 10/18/24 History (Lorazepam Intensol) mirtazapine 30 mg tablet 30 mg PO QDAY SLEEP 05/15/24 10/18/24 History aspirin 81 mg capsule 81 mg PO QDAY 10/18/2410/18 History quetiapine 100 mg tablet (Seroquel) 100 mg PO BID 12/0510/18/24 History Allergies Allergy/AdvReac Type Severity Reaction Status Date / Time Penicillins Allergy Mild Hives Verified 10/29/24 07:29 codeine Allergy Unknown Verified 10/29/24 07:29 Visit Medications Acetaminophen (Acetaminophen 325 Mg Tablet) 650 mg PO Q6H PRN PRN Reason: Fever >100.4 or pain 1-5 Stop: 04/18/25 18:16 Heparin Sodium (Porcine) (Heparin Sod Inj 5000 Unit/Ml Vial) 5,000 unit SC Q12HR [facility] Stop: 04/02/25 20:59 Magnesium Sulfate (Magnesium Sulfate Ivpb) 4 gm in 50 mls @ 12.5 mls/hr IV X1 ONE Stop: 03/19/25 19:33 Last Admin: 03/19/25 15:41 Dose: 12.5 mls/hr Magnesium Sulfate (Magnesium Sulfate Ivpb) 4 gm in 50 mls @ 12.5 mls/hr IV X1 ONE Stop: 03/19/25 23:44 Sodium Chloride (Ns) 1,000 mls @ 75 mls/hr IV .[id number] [facility] Stop: 04/18/25 18:29 Ondansetron HCl (Ondansetron Inj 2 Mg/Ml Inj 2 Ml) 4 mg IVP Q6H PRN; Protocol PRN Reason: NAUSEA OR VOMITING Stop: 04/18/25 18:16 Oxycodone/Acetaminophen (Oxycodone/Apap 5/325 Tablet) 1 tab PO Q6H PRN PRN Reason: Pain Scale 6-10 Stop: 03/24/25 18:16 Pantoprazole Sodium (Pantoprazole Inj 40 Mg Vial) 40 mg IVP QDAY [facility] Stop: 04/19/25 08:59 Discontinued Medications Lactated Ringer's (Lactated Ringers) 1,000 mls @ 1,000 mls/hr IV .Q1H ONE Stop: 03/19/25 14:59 Last Infusion: 03/19/25 16:28 Dose: Infused Ondansetron HCl (Ondansetron Inj 2 Mg/Ml Inj 2 Ml) 4 mg IVP X1 ONE; Protocol Stop: 03/19/25 14:01 Last Admin: 03/19/25 14:56 Dose: 4 mg Assessment & Plan Plan 74-year-old female with advanced dementia on home hospice presenting with 4?5 days of markedly decreased oral intake, worsening confusion, recurrent falls, and progressive functional decline concerning for failure to thrive, dehydration, hyperglycemia, hypomagnesemia, and pneumonia, admitted for stabilization and [id number]-[id number] evaluation. # Failure to thrive / Progressive functional decline # Advanced dementia (worsening) Necke-ud-kzwlhls decline worsened over 3?5 days; poor PO intake, falls, AMS. Plan: * Gentle IV fluids overnight * Nutrition consult * Swallow eval if mental status improves * PT evaluation # Dehydration Likely secondary to minimal PO intake. Plan: * Continue conservative IV hydration * Trend BMP every morning * Monitor urine output # Hypomagnesemia Mg 0.8; received 8 g IV repletion. Plan: * Recheck Mg in AM * Replete as needed # Altered mental status Likely multifactorial: dementia progression, dehydration, hyperglycemia, infection. CT head unrevealing; no metabolic derangements besides Mg/glucose. Plan: * Treat underlying causes * Delirium precautions * Avoid sedatives # Hyperglycemia / DM2 Glucose 258, A1c 8.4. Plan: * Hold metformin inpatient * SSI + basal adjustments as needed * Monitor for hypoglycemia due to poor PO intake # Right 11th rib fracture Likely from recent falls. Plan: * Pain control with non-sedating agents * Avoid opioids unless necessary * Fall precautions Health Maintenance: Diet: Start with careful PO advancement pending mental status and swallow eval DVT prophylaxis: Heparin GI prophylaxis: Not indicated unless poor PO continues Code status: need to confirm, patient was on hospice Disposition: Pending stabilization + [id number] decisions ----- Plan discussed with attending physician Dr. Santos Pérez MD PGY-1 Internal Medicine
[2025-03-19] MEDS: SODIUM CHLORIDE 0.9% 1000 ML 1,000 ML 75 ML IV (18:58)
[2025-03-19] MEDS: OLANZapine INJ 10 MG, Sterile Water 2.1 ML IM (21:33)
[2025-03-19] MEDS: HEPARIN SOD INJ 5000 UNIT/ML VIAL SC (22:25)
[2025-03-20] VITALS (8 sets, daily range): BP systolic 132–183; BP diastolic 83–99; PULSE 72–95; RESP 17–93; TEMP 36.1–36.3; O2SAT 91–98; BMI 31.4; BMI 13.0
[2025-03-20] MEDS: HALOPERIDOL LACT INJ 5 MG/ML VIAL IM (02:23)
--- NOTE | 2025-03-20 06:48 | PC.NURSE ---
Patient's notified of home med's list,promised to bring when he comes today.
[2025-03-20 08:48] LABS: Basophils # (Auto) 0.0 Thou/mm3 (0.0-0.2); Basophils % (Auto) 1 % (0-2.5); Eosinophils # (Auto) 0.1 Thou/mm3 (0.0-0.5); Eosinophils % (Auto) 1 % (0-10); Hematocrit 34.9 % (36.0-46.0); Hemoglobin 11.7 g/dL (12.0-16.0); Immature Granulocytes Auto 0.01 Thou/mm3 (0.00-0.00); Lymphocytes # (Auto) 1.8 Thou/mm3 (1.0-4.8); Lymphocytes % (Auto) 30 % (10-50); Mean Corpuscular HGB Conc 33.5 g/dl (31.0-37.0); Mean Corpuscular Hemoglobin 28.7 pg (25.0-35.0); Mean Corpuscular Volume 86 fL (80-100); Monocytes # (Auto) 0.5 Thou/mm3 (0.0-0.8); Monocytes % (Auto) 8 % (0-12); Neutrophils # (Auto) 3.7 Thou/mm3 (1.8-7.7); Neutrophils % (Auto) 60 % (37-80); Nucleated Red Blood Cell # 0.00 Thou/mm3 (0.00-0.00); Nucleated Red Blood Cell % 0 /100 WBC (0); Platelet Count 311 Thou/mm3 (140-440); RDW Standard Deviation 44.0 fL (36.4-46.3); Red Blood Count 4.07 Miln/mm3 (4.00-5.20); White Blood Count 6.1 Thou/mm3 (3.6-11.0)
[2025-03-20 09:08] LABS: Anion Gap 10 (7-16); BUN/Creatinine Ratio 7 Ratio (12-20); Blood Urea Nitrogen < 5 mg/dL (9-23); Calcium 8.8 mg/dL (8.3-10.6); Carbon Dioxide 29.9 mMol/L (20.0-31.0); Chloride 104 mMol/L (98-107); Creatinine (Component) 0.7 mg/dL (0.6-1.3); Estimated Creatinine Clearance 68.7 mL/min (>60); Glucose 151 mg/dL (74-106); Magnesium 2.0 mg/dL (1.6-2.6); Osmolality,Calculated 287 (275-295); Phosphorous 2.6 mg/dL (2.4-5.1); Potassium 4.1 mMol/L (3.4-5.1); Sodium 144 mMol/L (136-145); eGFR > 60 See Note
[2025-03-20] MEDS: HEPARIN SOD INJ 5000 UNIT/ML VIAL SC ×2 (09:31→20:46)
[2025-03-20] MEDS: SODIUM CHLORIDE 0.9% 1000 ML 1,000 ML 75 ML IV (09:32)
--- NOTE | 2025-03-20 10:59 | ESPR_ITS ---
<Statement entered by Irineo Graham MD - 04/01/25 09:23> I reviewed above note and agree with findings and plans. I have also personally examined the patient with medicine team and went over assessment and plan with medical team including internet media planner and resident physician. <Statement entered by Rafy Hampton MD - 03/20/25 17:40> Patient was examined and case was reviewed with team including attending physician. Note reviewed, I agree with most of its contents and agree with the patient's care as documented by Dr. Pérez Patient seen today at the bedside found awake, alert and oriented x1 but patient has baseline dementia. Vitals and labs reviewed. Currently saturating well on room air. Pending placement to a group home facility. At this time will follow up with social media sr strategy manager. Patient has advanced dementia will continue with frequent re-orientation and to treat underlying electrolyte disturbances, and will continue with gentle IV hydration at this time. Case discussed with my attending Dr. Santos Hampton MD PGY-2 Documentation for date of: 03/20/25 Subjective Subjective Interval history: No acute overnight events. Patient seen at bedside, ANO x 1, calm and sleeping. ROS still elevated due to dementia but denies pain. Pending med recs from . No respiratory distress observed; remains on room air. Exam Vital Signs Temp Pulse Resp BP Pulse Ox O2 Del Method 97.3 F 83 18 183/99 H 91 L Room Air 03/20/25 08:00 03/20/25 08:00 03/20/25 08:00 03/20/25 08:00 03/20/25 08:00 03/20/25 04:00 Narrative Exam General: Lethargic, chronically ill-appearing. AO ?1 (self). HEENT: Dry mucous membranes. No trauma. Eyes: PERRL, EOMI. Neck: Supple, no tenderness. Heart: RRR, no murmurs. Lungs: Clear to auscultation; no respiratory distress. Abdomen: Soft, nontender, nondistended; normal bowel sounds. Skin: Warm, dry. Multiple ecchymoses of varying ages. Neuro: CN II?XII grossly intact. No focal motor deficits. MSK: No joint tenderness or restricted ROM. Psych: Unable to assess due to AMS. Objective Labs 03/20/25 08:14 03/20/25 08:14 Labs: Laboratory Results - last 24 hr 03/19/25 03/19/25 03/19/25 14:16 14:17 14:44 WBC 6.2 RBC 4.31 Hgb 12.2 Hct 37.4 MCV 87 MCH 28.3 MCHC 32.6 RDW Std Deviation 46.5 H Plt Count 317 Neut % (Auto) 65 Lymph % (Auto) 26 [place] % (Auto) 7 Eos % (Auto) 1 Baso % (Auto) 1 Neut # (Auto) 4.1 Lymph # (Auto) 1.6 Wheeler # (Auto) 0.4 Eos # (Auto) 0.0 Baso # (Auto) 0.0 Immature Gran # (Auto) 0.03 H Absolute Nucleated RBC 0.00 Immature Gran % 1 H Nucleated RBC % 0 ESR 26 Puncture Site ABG pH ABG pCO2 ABG pO2 ABG HCO3 ABG O2 Saturation ABG Base Excess FiO2 Sodium 142 Potassium 4.2 Chloride 103 Carbon Dioxide 27.2 Anion Gap 12 BUN 10 Creatinine 1.0 Estim Creat Clear Calc 44.3 L eGFR 58 L BUN/Creatinine Ratio 10 L Glucose [address] Glu mg/dL 194 H Hemoglobin A1c 8.4 H Calculated Osmolality 291 Lactic Acid 1.8 Calcium 9.2 Corrected Calcium 9.2 Phosphorus Magnesium 0.8 L* Total Bilirubin 0.4 Direct Bilirubin 0.1 AST 21 ALT 14 Alkaline Phosphatase 75 Ammonia < 10 L Total Creatine Kinase 171 Troponin I < 0.020 C-Reactive Prot, Quant 1.5 H B-Natriuretic Peptide < 20 Total Protein 6.5 Albumin 4.2 Globulin 2.3 Albumin/Globulin Ratio 1.8 Lipase 22 Procalcitonin 0.08 TSH 4.39 Ur Collection Type Clean Catch Urine Color Lt-Yellow Urine Clarity Clear Urine pH 5.5 Ur Specific [place] 1.010 Urine Protein Negative Urine Glucose (UA) 2+ A Urine Ketones Negative Urine Blood Negative Urine Nitrite Negative Urine Bilirubin Negative Urine Urobilinogen (Auto) Negative Ur Leukocyte Esterase Negative Urine RBC 0 Urine WBC < 1 Ur Squamous Epith Cells 2 Urine Bacteria Rare Ur Culture Indicated? Not Indicated Influenza A (Rapid) Negative Influenza B (Rapid) Negative SARS-CoV-2 Ag (Rapid) Negative 03/19/25 03/20/25 16:05 08:14 WBC 6.1 RBC 4.07 Hgb 11.7 L Hct 34.9 L MCV 86 MCH 28.7 MCHC 33.5 RDW Std Deviation 44.0 Plt Count 311 Neut % (Auto) 60 Lymph % (Auto) 30 [place] % (Auto) 8 Eos % (Auto) 1 Baso % (Auto) 1 Neut # (Auto) 3.7 Lymph # (Auto) 1.8 Wheeler # (Auto) 0.5 Eos # (Auto) 0.1 Baso # (Auto) 0.0 Immature Gran # (Auto) 0.01 H Absolute Nucleated RBC 0.00 Immature Gran % 0 Nucleated RBC % 0 ESR Puncture Site Right Radial ABG pH 7.42 ABG pCO2 42 ABG pO2 90 ABG HCO3 27 H ABG O2 Saturation 97 ABG Base Excess 2 FiO2 21 Sodium 144 Potassium 4.1 Chloride 104 Carbon Dioxide 29.9 Anion Gap 10 BUN < 5 L Creatinine 0.7 Estim Creat Clear Calc 68.7 eGFR > 60 BUN/Creatinine Ratio 7 L Glucose [address] Glu mg/dL Hemoglobin A1c Calculated Osmolality 287 Lactic Acid Calcium 8.8 Corrected Calcium Phosphorus 2.6 Magnesium 2.0 Total Bilirubin Direct Bilirubin AST ALT Alkaline Phosphatase Ammonia Total Creatine Kinase Troponin I C-Reactive Prot, Quant B-Natriuretic Peptide Total Protein Albumin Globulin Albumin/Globulin Ratio Lipase Procalcitonin TSH Ur Collection Type Urine Color Urine Clarity Urine pH Ur Specific [place] Urine Protein Urine Glucose (UA) Urine Ketones Urine Blood Urine Nitrite Urine Bilirubin Urine Urobilinogen (Auto) Ur Leukocyte Esterase Urine RBC Urine WBC Ur Squamous Epith Cells Urine Bacteria Ur Culture Indicated? Influenza A (Rapid) Influenza B (Rapid) SARS-CoV-2 Ag (Rapid) ABG Interpretation ABG results: 03/19/25 16:05 ABG pH 7.42 ABG pCO2 42 ABG pO2 90 ABG HCO3 27 H ABG O2 Saturation 97 ABG Base Excess 2 Quality Measures Quality Measures VTE prophylaxis Advance care planning discussed with:: patient Assessment & Plan Assessment Current Active Medications: Generic Name Dose Route Start Last Admin Trade Name Freq PRN Reason Stop Dose Admin Acetaminophen 650 mg 03/19/25 18:17 Acetaminophen 325 Mg Tablet PO 04/18/25 18:16 Q6H PRN Fever >100.4 or pain 1-5 Heparin Sodium (Porcine) 5,000 unit 03/19/25 21:00 03/20/25 09:31 Heparin Sod Inj 5000 Unit/Ml Vial SC 04/02/25 20:59 5,000 unit Q12HR [facility] Administration Sodium Chloride 1,000 mls @ 75 mls/hr 03/19/25 18:30 03/20/25 09:32 Ns IV 04/18/25 18:29 75 mls/hr .[id number] [facility] Administration Losartan Potassium 50 mg 03/20/25 09:45 Losartan Potassium 25 Mg Tablet PO 04/19/25 09:44 QDAY [facility] Ondansetron HCl 4 mg 03/19/25 18:17 Ondansetron Inj 2 Mg/Ml Inj 2 Ml IVP 04/18/25 18:16 Q6H PRN NAUSEA OR VOMITING Protocol Oxycodone/Acetaminophen 1 tab 03/19/25 18:17 Oxycodone/Apap 5/325 Tablet PO 03/24/25 18:16 Q6H PRN Pain Scale 6-10 Pantoprazole Sodium 40 mg 03/20/25 09:00 03/20/25 09:30 Pantoprazole Inj 40 Mg Vial IVP 04/19/25 08:59 40 mg QDAY [facility] Administration Plan 74-year-old female with advanced dementia on home hospice presenting with 4?5 days of markedly decreased oral intake, worsening confusion, recurrent falls, and progressive functional decline concerning for failure to thrive, dehydration, hyperglycemia, hypomagnesemia, and pneumonia, admitted for stabilization and vxsnl-qg-tsye evaluation. # Failure to thrive / Progressive functional decline # Advanced dementia (worsening) Pkmve-sz-[id number] decline worsened over 3?5 days; poor PO intake, falls, AMS. Plan: * Gentle IV fluids overnight * Nutrition consult * Swallow eval if mental status improves * PT evaluation * Continue home meds once med rec are done # Dehydration Likely secondary to minimal PO intake. Plan: * Continue conservative IV hydration * Trend BMP every morning * Monitor urine output # Hypomagnesemia On admission, Mg 0.8; received 8 g IV repletion Today 2.0 Plan: * Recheck Mg in AM * Replete as needed # Altered mental status Likely multifactorial: dementia progression, dehydration, hyperglycemia, infection. CT head unrevealing; no metabolic derangements besides Mg/glucose. Plan: * Treat underlying causes * Delirium precautions * Avoid sedatives # Hyperglycemia / DM2 Glucose 258, A1c 8.4. Plan: * Hold metformin inpatient * SSI + basal adjustments as needed * Monitor for hypoglycemia due to poor PO intake # Right 11th rib fracture Likely from recent falls. Plan: * Pain control with non-sedating agents * Avoid opioids unless necessary * Fall precautions Health Maintenance: Diet: Start with careful PO advancement pending mental status and swallow eval DVT prophylaxis: Heparin SQ GI prophylaxis: PPI Code status: DNR Disposition: Pending stabilization + bqrhi-xa-kwgk decisions ----- Plan discussed with attending physician Dr. Graham and senior resident Dr. Rafita Pérez MD PGY-1 Internal Medicine
[2025-03-20] MEDS: LOSARTAN POTASSIUM 25 MG TABLET 50 MG PO (11:17)
[2025-03-20] MEDS: THIAMINE 100 MG TABLET PO (15:40)
[2025-03-20] MEDS: MULTIVITAMINS TABLET 1 TAB PO (15:40)
[2025-03-21] VITALS (10 sets, daily range): BP systolic 138–188; BP diastolic 70–102; PULSE 67–100; RESP 18–97; TEMP 36.1–36.6; O2SAT 93–97
[2025-03-21] MEDS: SODIUM CHLORIDE 0.9% 1000 ML 1,000 ML 75 ML IV ×2 (02:41→16:28)
[2025-03-21 06:07] LABS: Basophils # (Auto) 0.2 Thou/mm3 (0.0-0.2); Basophils % (Auto) 2 % (0-2.5); Eosinophils # (Auto) 0.0 Thou/mm3 (0.0-0.5); Eosinophils % (Auto) 0 % (0-10); Hematocrit 36.3 % (36.0-46.0); Hemoglobin 12.3 g/dL (12.0-16.0); Immature Granulocytes Auto 0.61 Thou/mm3 (0.00-0.00); Lymphocytes # (Auto) 2.7 Thou/mm3 (1.0-4.8); Lymphocytes % (Auto) 24 % (10-50); Mean Corpuscular HGB Conc 33.9 g/dl (31.0-37.0); Mean Corpuscular Hemoglobin 28.7 pg (25.0-35.0); Mean Corpuscular Volume 85 fL (80-100); Monocytes # (Auto) 0.9 Thou/mm3 (0.0-0.8); Monocytes % (Auto) 8 % (0-12); Neutrophils # (Auto) 6.8 Thou/mm3 (1.8-7.7); Neutrophils % (Auto) 60 % (37-80); Nucleated Red Blood Cell # 0.00 Thou/mm3 (0.00-0.00); Nucleated Red Blood Cell % 0 /100 WBC (0); Platelet Count 367 Thou/mm3 (140-440); RDW Standard Deviation 43.9 fL (36.4-46.3); Red Blood Count 4.28 Miln/mm3 (4.00-5.20); White Blood Count 11.2 Thou/mm3 (3.6-11.0)
[2025-03-21 06:41] LABS: Anion Gap 19 (7-16); BUN/Creatinine Ratio 9 Ratio (12-20); Blood Urea Nitrogen 8 mg/dL (9-23); Calcium 8.8 mg/dL (8.3-10.6); Carbon Dioxide 21.5 mMol/L (20.0-31.0); Chloride 104 mMol/L (98-107); Creatinine (Component) 0.9 mg/dL (0.6-1.3); Estimated Creatinine Clearance 52.2 mL/min (>60); Glucose 238 mg/dL (74-106); Magnesium 1.5 mg/dL (1.6-2.6); Osmolality,Calculated 293 (275-295); Phosphorous 3.2 mg/dL (2.4-5.1); Potassium 4.6 mMol/L (3.4-5.1); Sodium 144 mMol/L (136-145); eGFR > 60 See Note
[2025-03-21] MEDS: DONEPEZIL HCL 5 MG TABLET 10 MG PO (08:44)
[2025-03-21] MEDS: DIVALPROEX SOD EC 125 MG TABEC 250 MG PO ×2 (08:44→21:12)
[2025-03-21] MEDS: ASPIRIN EC 81 MG TABEC PO (08:44)
[2025-03-21] MEDS: LOSARTAN POTASSIUM 25 MG TABLET 50 MG PO (08:45)
[2025-03-21] MEDS: THIAMINE 100 MG TABLET PO (08:45)
[2025-03-21] MEDS: MULTIVITAMINS TABLET 1 TAB PO (08:45)
[2025-03-21] MEDS: HEPARIN SOD INJ 5000 UNIT/ML VIAL SC ×2 (08:46→20:27)
--- NOTE | 2025-03-21 10:16 | ESPR_ITS ---
Documentation for date of: 03/21/25 Subjective Subjective Interval history: No acute overnight events. Patient seen at bedside, ANO x 1, calm and sleeping. Has bouts of agitation at night requiring seroquel and other meds overnight. Continued her home meds. No respiratory distress observed; remains on room air. Exam Vital Signs Temp Pulse Resp BP Pulse Ox O2 Del Method 97.9 F 94 18 155/78 H 97 Room Air 03/21/25 07:37 03/21/25 08:45 03/21/25 08:00 03/21/25 08:45 03/21/25 07:37 03/21/25 07:37 Narrative Exam General: Lethargic, chronically ill-appearing. AO ?1 (self). HEENT: Dry mucous membranes. No trauma. Eyes: PERRL, EOMI. Neck: Supple, no tenderness. Heart: RRR, no murmurs. Lungs: Clear to auscultation; no respiratory distress. Abdomen: Soft, nontender, nondistended; normal bowel sounds. Skin: Warm, dry. Multiple ecchymoses of varying ages. Neuro: CN II?XII grossly intact. No focal motor deficits. MSK: No joint tenderness or restricted ROM. Psych: Unable to assess due to AMS. Objective Labs 03/22/25 05:12 03/22/25 05:12 Labs: Laboratory Results - last 24 hr 03/21/25 05:15 WBC 11.2 H D RBC 4.28 Hgb 12.3 Hct 36.3 MCV 85 MCH 28.7 MCHC 33.9 RDW Std Deviation 43.9 Plt Count 367 D Neut % (Auto) 60 Lymph % (Auto) 24 [place] % (Auto) 8 Eos % (Auto) 0 Baso % (Auto) 2 Neut # (Auto) 6.8 Lymph # (Auto) 2.7 [place] # (Auto) 0.9 H Eos # (Auto) 0.0 Baso # (Auto) 0.2 Immature Gran # (Auto) 0.61 H Absolute Nucleated RBC 0.00 Immature Gran % 6 H Nucleated RBC % 0 Sodium 144 Potassium 4.6 D Chloride 104 Carbon Dioxide 21.5 Anion Gap 19 H BUN 8 L Creatinine 0.9 Estim Creat Clear Calc 52.2 L eGFR > 60 BUN/Creatinine Ratio 9 L Glucose 238 H D Calculated Osmolality 293 Calcium 8.8 Phosphorus 3.2 Magnesium 1.5 L ABG Interpretation ABG results: 03/19/25 16:05 ABG pH 7.42 ABG pCO2 42 ABG pO2 90 ABG HCO3 27 H ABG O2 Saturation 97 ABG Base Excess 2 Quality Measures Quality Measures VTE prophylaxis Advance care planning discussed with:: patient and spouse Assessment & Plan Assessment Current Active Medications: Generic Name Dose Route Start Last Admin Trade Name Therese PRN Reason Stop Dose Admin Acetaminophen 650 mg 03/19/25 18:17 Acetaminophen 325 Mg Tablet PO 04/18/25 18:16 Q6H PRN Fever >100.4 or pain 1-5 Amlodipine Besylate 10 mg 03/21/25 09:00 03/21/25 08:44 Amlodipine Besylate 5 Mg Tablet PO 04/20/25 08:59 10 mg QDAY VILMA Administration Aspirin 81 mg 03/21/25 09:00 03/21/25 08:44 Aspirin Ec 81 Mg Tabec PO 04/20/25 08:59 81 mg QDAY VILMA Administration Dextrose 25 ml 03/21/25 08:29 Dextrose 50%-Water Inj 50 Ml Syringe IV 04/20/25 08:28 Q15MIN PRN BG 50-70 responsive npo pt Dextrose 50 ml 03/21/25 08:29 Dextrose 50%-Water Inj 50 Ml Syringe IV 04/20/25 08:28 Q15MIN PRN BG <50 OR BG <70 & pt unresponsive Divalproex Sodium 250 mg 03/21/25 09:00 03/21/25 08:44 Divalproex Sod Ec 125 Mg Tabec PO 04/20/25 08:59 250 mg BID VILMA Administration Donepezil HCl 10 mg 03/21/25 09:00 03/21/25 08:44 Donepezil Hcl 5 Mg Tablet PO 04/20/25 08:59 10 mg QDAY VILMA Administration Glucagon 1 mg 03/21/25 08:29 Glucagon Inj 1 Mg Vial IM Q15MIN PRN BG <70, and no IV access Heparin Sodium (Porcine) 5,000 unit 03/19/25 21:00 03/21/25 08:46 Heparin Sod Inj 5000 Unit/Ml Vial SC 04/02/25 20:59 5,000 unit Q12HR VILMA Administration Sodium Chloride 1,000 mls @ 75 mls/hr 03/19/25 18:30 03/21/25 02:41 Ns IV 04/18/25 18:29 75 mls/hr .[id number] VILMA Administration Insulin Human Lispro 0 unit 03/21/25 11:30 Insulin Lispro (Admelog) 1 Unit/0.01 Ml Unit SC 04/20/25 11:29 AC VILMA Protocol Lorazepam 1 mg 03/21/25 08:27 Lorazepam 0.5 Mg Tablet PO 03/26/25 08:26 QDAY PRN AGITATION Losartan Potassium 50 mg 03/20/25 09:45 03/21/25 08:45 Losartan Potassium 25 Mg Tablet PO 04/19/25 09:44 50 mg QDAY VILMA Administration Mirtazapine 30 mg 03/21/25 21:00 Mirtazapine 15 Mg Tablet PO 04/20/25 20:59 HS [facility] Multivitamins 1 tab 03/20/25 14:30 03/21/25 08:45 Multivitamins Tablet PO 04/19/25 14:29 1 tab QDAY VILMA Administration Ondansetron HCl 4 mg 03/19/25 18:17 Ondansetron Inj 2 Mg/Ml Inj 2 Ml IVP 04/18/25 18:16 Q6H PRN NAUSEA OR VOMITING Protocol Oxycodone/Acetaminophen 1 tab 03/19/25 18:17 03/20/25 20:55 Oxycodone/Apap 5/325 Tablet PO 03/24/25 18:16 1 tab Q6H PRN Administration Pain Scale 6-10 Pantoprazole Sodium 40 mg 03/20/25 09:00 03/21/25 08:45 Pantoprazole Inj 40 Mg Vial IVP 04/19/25 08:59 40 mg QDAY VILMA Administration Quetiapine Fumarate 400 mg 03/21/25 09:00 03/21/25 08:44 Quetiapine Fumarate 100 Mg Tablet PO 04/20/25 08:59 400 mg BID VILMA Administration Thiamine HCl 100 mg 03/20/25 14:30 03/21/25 08:45 Thiamine 100 Mg Tablet PO 04/19/25 14:29 100 mg QDAY VILMA Administration Plan 74-year-old female with advanced dementia on home hospice presenting with 4?5 days of markedly decreased oral intake, worsening confusion, recurrent falls, and progressive functional decline concerning for failure to thrive, dehydration, hyperglycemia, hypomagnesemia, and pneumonia, admitted for stabilization and wbkig-[id number] evaluation. # Failure to thrive / Progressive functional decline # Advanced dementia (worsening) [id number] decline worsened over 3?5 days; poor PO intake, falls, AMS. Agitations over night, requiring a sitter. PT evaluated and stated patient unable to care for themselves and requires skilled nursing placement. Plan: * Gentle IV fluids overnight * Nutrition consult * On Dysphagia 3 diet * Continued home meds # Dehydration Likely secondary to minimal PO intake. Plan: * Continue conservative IV hydration * Trend BMP every morning * Monitor urine output # Hypomagnesemia On admission, Mg 0.8; received 8 g IV repletion Today 1.5 Plan: * Recheck Mg in AM * Replete as needed # Altered mental status Likely multifactorial: dementia progression, dehydration, hyperglycemia, infection. CT head unrevealing; no metabolic derangements besides Mg/glucose. Plan: * Treat underlying causes * Delirium precautions * Avoid sedatives # Hyperglycemia / DM2 Glucose 258, A1c 8.4. Plan: * Hold metformin inpatient * SSI + basal adjustments as needed * Monitor for hypoglycemia due to poor PO intake # Right 11th rib fracture Likely from recent falls. Plan: * Pain control with non-sedating agents * Avoid opioids unless necessary * Fall precautions Health Maintenance: Diet: Dysphagia 3 DVT prophylaxis: Heparin SQ GI prophylaxis: PPI Code status: DNR Disposition: Pending rehab placement ----- Plan discussed with attending physician Dr. Candis Pérez MD PGY-1 Internal Medicine Attending Provider Attestation/Addendum I have seen and examined the patient. I was physically present for the garcia portions of the services provided including history, physical exam, diagnosis, treatment plans and orders. I agree with assessment and plan of care as documented by residents. Even though this this note was carefully revised there may still be minor errors in psychology associate due to voice recognition software. Ezio Chirinos MD
[2025-03-21] MEDS: Magnesium Sulfate 4 GM Ivpb 4 GM/50 ML BAG IV (10:49)
[2025-03-21] MEDS: INSULIN LISPRO (AdmeLOG) 1 UNIT/0.01 ML UNIT SC ×2 (11:18→16:28)
--- NOTE | 2025-03-21 13:44 | PC.SS ---
SS attempted to meet with pt to complete initial assessment, pt is unable to engage in conversation, Pt is altered. SS attempted to reach her Amarjit Sahu [phone], no answer. VM left. SS was informed py team pt is going to need shelter placement. Pt does not possess [employer] which is required for shelter placement. SS will re attempt to reach family to gather more information.
--- NOTE | 2025-03-21 14:31 | PC.PT ---
Patient will be D/C from PT at this time 2/ patient is now on hospice services and is no longer a candidate for PT.
[2025-03-21] MEDS: MIRTAZAPINE 15 MG TABLET 30 MG PO (21:12)
[2025-03-21] MEDS: OLANZapine INJ 10 MG, Sterile Water 2.1 ML IM (23:50)
[2025-03-22] VITALS (9 sets, daily range): BP systolic 134–155; BP diastolic 50–89; PULSE 70–102; RESP 16–97; TEMP -13.8–36.7; O2SAT 95–100
[2025-03-22] MEDS: SODIUM CHLORIDE 0.9% 1000 ML 1,000 ML 75 ML IV (05:06)
[2025-03-22 06:01] LABS: Basophils # (Auto) 0.0 Thou/mm3 (0.0-0.2); Basophils % (Auto) 0 % (0-2.5); Eosinophils # (Auto) 0.1 Thou/mm3 (0.0-0.5); Eosinophils % (Auto) 1 % (0-10); Hematocrit 34.7 % (36.0-46.0); Hemoglobin 11.4 g/dL (12.0-16.0); Immature Granulocytes Auto 0.02 Thou/mm3 (0.00-0.00); Lymphocytes # (Auto) 2.1 Thou/mm3 (1.0-4.8); Lymphocytes % (Auto) 29 % (10-50); Mean Corpuscular HGB Conc 32.9 g/dl (31.0-37.0); Mean Corpuscular Hemoglobin 28.1 pg (25.0-35.0); Mean Corpuscular Volume 86 fL (80-100); Monocytes # (Auto) 0.6 Thou/mm3 (0.0-0.8); Monocytes % (Auto) 8 % (0-12); Neutrophils # (Auto) 4.4 Thou/mm3 (1.8-7.7); Neutrophils % (Auto) 61 % (37-80); Nucleated Red Blood Cell # 0.00 Thou/mm3 (0.00-0.00); Nucleated Red Blood Cell % 0 /100 WBC (0); Platelet Count 333 Thou/mm3 (140-440); RDW Standard Deviation 44.7 fL (36.4-46.3); Red Blood Count 4.05 Miln/mm3 (4.00-5.20); White Blood Count 7.2 Thou/mm3 (3.6-11.0)
[2025-03-22 06:35] LABS: Anion Gap 17 (7-16); BUN/Creatinine Ratio 8 Ratio (12-20); Blood Urea Nitrogen 6 mg/dL (9-23); Calcium 8.8 mg/dL (8.3-10.6); Carbon Dioxide 22.8 mMol/L (20.0-31.0); Chloride 105 mMol/L (98-107); Creatinine (Component) 0.8 mg/dL (0.6-1.3); Estimated Creatinine Clearance 58.8 mL/min (>60); Glucose 244 mg/dL (74-106); Magnesium 1.6 mg/dL (1.6-2.6); Osmolality,Calculated 294 (275-295); Phosphorous 3.3 mg/dL (2.4-5.1); Potassium 3.4 mMol/L (3.4-5.1); Sodium 145 mMol/L (136-145); eGFR > 60 See Note
[2025-03-22] MEDS: INSULIN LISPRO (AdmeLOG) 1 UNIT/0.01 ML UNIT SC ×2 (08:41→17:27)
[2025-03-22] MEDS: HEPARIN SOD INJ 5000 UNIT/ML VIAL SC ×2 (08:42→20:21)
[2025-03-22] MEDS: Magnesium Sulfate 2 GM Ivpb 2 GM/50 ML BAG IV (08:44)
--- NOTE | 2025-03-22 10:25 | PC.SS ---
Mikayla Sahu is a 74-year-old female admitted to [facility] for Dehydration and Failure to Thrive. Pt is severely demented and unable to engage, SS reached out to her Amarjit Sahu [phone], their daughter Paulette Ramos [phone] answered on his behalf. Paulette stated pt and Amarjit have moved in with her. Alan reports herself and Amarjit are the pts conservators. Paulette reports pt has been falling a lot, she climbs out of bed, chews on her fingers to the point of bleeding (they have initiated using mittens at home). Paulette reports the care pt requires has become too much for them to handle as Amarjit was recently diagnosed with Cancer and will be starting treatment come April. Alan reports pt aligned with [facility]. Pt requires full assistance for bathing, toileting, cleaning and feeding. Pt does not walk without assistance she is very unstable. SS explained process for long-term placement. Pt does NOT possess [employer], per Paulette they applied but pt was denied for too high of income. SS explained Medi-s[employer]ie is required for long-term care due to room and board. There is always option for OOP cost but that can range from 5-10K/month. Paulette stated they could not afford that payment. SS inquired if they have considered or looked into private care givers, Paulette stated they have looked and cannot afford the payment. Paulette reports pt may have benefits through [facility] as spouse but they have been unsuccessful with reaching [facility] for assistance. No callbacks have been made from [facility] after multiplae attempts from family. SS explained SS would also attempt to get information from our contact list for her. SS explained we will reach out to financial counselor for assistance with medical, most likely will have a share of cost, Paulette at this time is unsure of how much Amarjit can afford but she will sit with him and discuss finances. SS also explained it is possible that long-term placement may be out of the area due to limited availability in surrounding areas. SS explained pt can be placed at a SNF for short-term rehab but due to pt mentation pt may not be able to participate in therapy but we can always try. SS to submit referral via [facility]. Dc Plan: SNF vs [facility] DM: Amarjit or Dtr Paulette PCP: Dulce Brandt
--- NOTE | 2025-03-22 10:33 | PC.SS ---
SS spoke to Martha, Financial Counsilor who provided SS with a number for pt family to follow up with Medi
--- NOTE | 2025-03-22 10:34 | PC.SS ---
Addendum entered by Kasey Irizarry 03/22/25 11:26: continued note- monetary support that will be distributed to [place] in which he can then utilize for support pt needs. SS attempted to provide new information to Amarjit, no answer. VM full. Deann reattempt later. Addendum entered by Kasey Irizarry 03/22/25 11:20: SS reached out to [place] [phone] ext [phone] Kurt KIMW, SS explained situation and pt requesting assitance with adjunct faculty for medical terminology placement for pt or home support for pt, per Kurt [place] does not provide services for shelter placement or placement of any kind. Calderon stated Amarjit can call the [facility] [employer] [phone] Keisha Cruz for information on mo Original Note: SS spoke to Sara, Financial Supervisor [employer] who provided SS with a number for pt family to follow up with [facility] worker Cha [phone]. SS contacted pt and spoke to Rosa and provided him with information. SS instructed him to please provide update with information once he speaks to Cha.
[2025-03-22] MEDS: DEXTROSE 5%-NS 1,000 ML 125 ML IV ×2 (11:30→20:21)
--- NOTE | 2025-03-22 14:11 | ESPR_ITS ---
<Statement entered by Rafy Hampton MD - 03/23/25 14:48> Patient was examined and case was reviewed with team including attending physician. Note reviewed, I agree with most of its contents and agree with the patient's care. Rafy Hampton MD PGY-2 Documentation for date of: 03/22/25 Subjective Subjective Interval history: No acute overnight events. Patient seen at bedside, ANO x 1, calm and sleeping. Has bouts of agitation at night requiring seroquel and other meds overnight. No respiratory distress observed; remains on room air. Has not been eating her meals, requested nurse to assist patient with feeding. If still unable to tolerate then will rediscuss with family about further options. Pending placement, plans for intermission coordinator facility as unable to care for patient on his own. Exam Vital Signs Temp Pulse Resp BP Pulse Ox O2 Del Method 7 F L 98 18 142/68 H 98 Room Air 03/22/25 12:00 03/22/25 12:00 03/22/25 12:00 03/22/25 12:00 03/22/25 12:00 03/22/25 12:00 Narrative Exam General: Lethargic, chronically ill-appearing. AO ?1 (self). HEENT: Dry mucous membranes. No trauma. Eyes: PERRL, EOMI. Neck: Supple, no tenderness. Heart: RRR, no murmurs. Lungs: Clear to auscultation; no respiratory distress. Abdomen: Soft, nontender, nondistended; normal bowel sounds. Skin: Warm, dry. Multiple ecchymoses of varying ages. Neuro: CN II?XII grossly intact. No focal motor deficits. MSK: No joint tenderness or restricted ROM. Psych: Unable to assess due to AMS. Objective Labs 03/22/25 05:12 03/22/25 05:12 Labs: Laboratory Results - last 24 hr 03/22/25 05:12 WBC 7.2 RBC 4.05 Hgb 11.4 L Hct 34.7 L MCV 86 MCH 28.1 MCHC 32.9 RDW Std Deviation 44.7 Plt Count 333 D Neut % (Auto) 61 Lymph % (Auto) 29 [place] % (Auto) 8 Eos % (Auto) 1 Baso % (Auto) 0 Neut # (Auto) 4.4 Lymph # (Auto) 2.1 [place] # (Auto) 0.6 Eos # (Auto) 0.1 Baso # (Auto) 0.0 Immature Gran # (Auto) 0.02 H Absolute Nucleated RBC 0.00 Immature Gran % 0 Nucleated RBC % 0 Sodium 145 Potassium 3.4 D Chloride 105 Carbon Dioxide 22.8 Anion Gap 17 H BUN 6 L Creatinine 0.8 Estim Creat Clear Calc 58.8 L eGFR > 60 BUN/Creatinine Ratio 8 L Glucose 244 H Calculated Osmolality 294 Calcium 8.8 Phosphorus 3.3 Magnesium 1.6 ABG Interpretation ABG results: 03/19/25 16:05 ABG pH 7.42 ABG pCO2 42 ABG pO2 90 ABG HCO3 27 H ABG O2 Saturation 97 ABG Base Excess 2 Quality Measures Quality Measures VTE prophylaxis Advance care planning discussed with:: patient and spouse Assessment & Plan Assessment Current Active Medications: Generic Name Dose Route Start Last Admin Trade Name Freq PRN Reason Stop Dose Admin Acetaminophen 650 mg 03/19/25 18:17 Acetaminophen 325 Mg Tablet PO 04/18/25 18:16 Q6H PRN Fever >100.4 or pain 1-5 Amlodipine Besylate 10 mg 03/21/25 09:00 03/22/25 10:32 Amlodipine Besylate 5 Mg Tablet PO 04/20/25 08:59 Not Given QDAY VILMA Aspirin 81 mg 03/21/25 09:00 03/22/25 10:32 Aspirin Ec 81 Mg Tabec PO 04/20/25 08:59 Not Given QDAY VILMA Dextrose 25 ml 03/21/25 08:29 Dextrose 50%-Water Inj 50 Ml Syringe IV 04/20/25 08:28 Q15MIN PRN BG 50-70 responsive npo pt Dextrose 50 ml 03/21/25 08:29 Dextrose 50%-Water Inj 50 Ml Syringe IV 04/20/25 08:28 Q15MIN PRN BG <50 OR BG <70 & pt unresponsive Divalproex Sodium 250 mg 03/21/25 09:00 03/22/25 10:32 Divalproex Sod Ec 125 Mg Tabec PO 04/20/25 08:59 Not Given BID VILMA Donepezil HCl 10 mg 03/21/25 09:00 03/22/25 10:33 Donepezil Hcl 5 Mg Tablet PO 04/20/25 08:59 Not Given QDAY [facility] Glucagon 1 mg 03/21/25 08:29 Glucagon Inj 1 Mg Vial IM Q15MIN PRN BG <70, and no IV access Heparin Sodium (Porcine) 5,000 unit 03/19/25 21:00 03/22/25 08:42 Heparin Sod Inj 5000 Unit/Ml Vial SC 04/02/25 20:59 5,000 unit Q12HR VILMA Administration Dextrose/Sodium Chloride 1,000 mls @ 125 mls/hr 03/22/25 10:45 03/22/25 11:30 D5-Ns IV 04/21/25 10:44 125 mls/hr .Q8H VILMA Administration Insulin Human Lispro 0 unit 03/22/25 12:00 03/22/25 11:56 Insulin Lispro (Admelog) 1 Unit/0.01 Ml Unit SC 04/21/25 11:59 Not Given Q6HR@0000,0600,1200,1800 [facility] Protocol Lorazepam 1 mg 03/21/25 08:27 03/21/25 18:27 Lorazepam 0.5 Mg Tablet PO 03/26/25 08:26 1 mg QDAY PRN Administration AGITATION Losartan Potassium 50 mg 03/20/25 09:45 03/22/25 10:33 Losartan Potassium 25 Mg Tablet PO 04/19/25 09:44 Not Given QDAY VILMA Mirtazapine 30 mg 03/21/25 21:00 03/21/25 21:12 Mirtazapine 15 Mg Tablet PO 04/20/25 20:59 30 mg HS VILMA Administration Multivitamins 1 tab 03/20/25 14:30 03/22/25 10:33 Multivitamins Tablet PO 04/19/25 14:29 Not Given QDAY VILMA Ondansetron HCl 4 mg 03/19/25 18:17 Ondansetron Inj 2 Mg/Ml Inj 2 Ml IVP 04/18/25 18:16 Q6H PRN NAUSEA OR VOMITING Protocol Oxycodone/Acetaminophen 1 tab 03/19/25 18:17 03/20/25 20:55 Oxycodone/Apap 5/325 Tablet PO 03/24/25 18:16 1 tab Q6H PRN Administration Pain Scale 6-10 Pantoprazole Sodium 40 mg 03/20/25 09:00 03/22/25 08:42 Pantoprazole Inj 40 Mg Vial IVP 04/19/25 08:59 40 mg QDAY VILMA Administration Quetiapine Fumarate 400 mg 03/21/25 09:00 03/22/25 10:33 Quetiapine Fumarate 100 Mg Tablet PO 04/20/25 08:59 Not Given BID VILMA Thiamine HCl 100 mg 03/20/25 14:30 03/22/25 10:33 Thiamine 100 Mg Tablet PO 04/19/25 14:29 Not Given QDAY VILMA Plan 74-year-old female with advanced dementia on home hospice presenting with 4?5 days of markedly decreased oral intake, worsening confusion, recurrent falls, and progressive functional decline concerning for failure to thrive, dehydration, hyperglycemia, hypomagnesemia, and pneumonia, admitted for stabilization and nwjnu-[id number]-[id number] evaluation. # Failure to thrive / Progressive functional decline # Advanced dementia (worsening) Bpjfo-eh-[id number] decline worsened over 3?5 days; poor PO intake, falls, AMS. Agitations over night, requiring a sitter. PT evaluated and stated patient unable to care for themselves and requires fpc placement. 03/22: Patient has not been eating her meals, requested nurse to assist patient with feeding. If still unable to tolerate then will rediscuss with family about further options. Pending placement, plans for fpc facility as unable to care for patient on his own. Plan: * Gentle IV fluids overnight * Nutrition consult * Rediscuss further options with about patient if unable to tolerate meal intake. * On Dysphagia 3 diet * Continued home meds # Dehydration Likely secondary to minimal PO intake. Plan: * Continue conservative IV hydration * Trend BMP every morning * Monitor urine output # Hypomagnesemia On admission, Mg 0.8; received 8 g IV repletion Today 1.6, repleted Plan: * Recheck Mg in AM * Replete as needed # Altered mental status Likely multifactorial: dementia progression, dehydration, hyperglycemia, infection. CT head unrevealing; no metabolic derangements besides Mg/glucose. Plan: * Treat underlying causes * Delirium precautions * Avoid sedatives # Hyperglycemia / DM2 Glucose 258, A1c 8.4. Plan: * Hold metformin inpatient * SSI + basal adjustments as needed * Monitor for hypoglycemia due to poor PO intake # Right 11th rib fracture Likely from recent falls. Plan: * Pain control with non-sedating agents * Avoid opioids unless necessary * Fall precautions Health Maintenance: Diet: Dysphagia 3 DVT prophylaxis: Heparin SQ GI prophylaxis: PPI Code status: DNR Disposition: Pending rehab placement ----- Plan discussed with attending physician Dr. Chirinos and senior resident Dr. Rafita Pérez MD PGY-1 Internal Medicine Attending Provider Attestation/Addendum I have seen and examined the patient. I was physically present for the garcia portions of the services provided including history, physical exam, diagnosis, treatment plans and orders. I agree with assessment and plan of care as documented by residents. Even though this this note was carefully revised there may still be minor errors in technical support internship due to voice recognition software. Ezio Chirinos MD
--- NOTE | 2025-03-22 14:36 | PC.SS ---
SS spok to Yaritza at [facility] in regards to referral SS inquired if short term would be an option for family, Yaritza inquired on pt status with eating. Pt requires a 1:1 feeder only eating about 25%
--- NOTE | 2025-03-22 15:15 | PC.SS ---
Addendum entered by Kasey Irizarry 03/23/25 10:23: Flor at [facility] will check with DON if pt needs to be off 1:1 sitter for 24hrs Addendum entered by Kasey Irizarry 03/23/25 10:20: SS booked [facility] on [facility], SS reached out to Section as pt is on a 1:1 sitter, per RN, Vaishali pt sleeps majority of day but at night is restless. SS requested Section do a bedside if needed. Addendum entered by Kasey Irizarry 03/23/25 09:44: SS spoke to pt Amarjit this morning, options provided. Amarjit wishes for [facility] due to distance from his home. SS reached out to Section at [facility] Original Note: SS met with pt at bedside she was accompanied by her Amarjit, and dtr Paulette. SS was accompanied by Faisal PAEZ. Options for SNF under comfort measures was talked about. Family is in agreement. Referral was submitted. Choices to be given to family tomorrow.
--- NOTE | 2025-03-22 16:31 | PD.RESDS ---
Planned Discharge Date 03/22/25 DS: Providers Provider Date of admission: 03/19/25 18:17 Primary care physician: Emilia Cardona MD Admitting Provider: Irineo Graham MD Attending Provider on Admission: Irineo Graham MD Consults: 03/19/25 18:23 PT [Referral Physical Therapy] Routine Comment: Physician Instructions: 03/19/25 18:24 Referral Registered Dietitian Routine Comment: 03/19/25 23:32 Referral Wound Care Routine Comment: 03/20/25 03:57 Referral Speech Therapy Routine Comment: 03/20/25 14:04 Referral Hospice Routine Comment: Attending Provider on DC: Ezio Chirinos MD Discharging Provider: Shira Pérez MD Hospital Course Hospital Course Hospital course: 74-year-old female with advanced dementia, was admitted for failure to thrive, dehydration, hypomagnesemia, pneumonia, and worsening confusion over a 3-5 day period of decreased oral intake, weakness, and recurrent falls. Throughout her stay, the patient remained AO ?1, with minimal improvement in mental status. Initial management included rehydration with IV fluids, repletion of hypomagnesemia with IV magnesium, and empiric antibiotics for pneumonia. The patient was stabilized, but her clinical condition and family concerns led to discussions regarding goals of care and future placement options. Social Work intervened and had multiple discussions with the family regarding the patient?s prognosis and available options. After careful consideration and family input, the decision was made for the patient to be discharged to [facility] for comfort care. Diagnosis During Admission: # Failure to thrive / Progressive functional decline # Advanced dementia (worsening) # Dehydration # Hypomagnesemia # Altered mental status # Hyperglycemia / DM2 # Right 11th rib fracture Discharge Instructions: Discharge Destination: The patient will be transferred to [facility] for comfort care. Comfort Care Plan: Comfort measures will be provided, focusing on pain management, symptom control, and quality of life. Family is encouraged to communicate with SNF staff regarding patient comfort and well-being. Medications: Pain Management: As per SNF orders Continue any medications as prescribed by hospice or comfort care team. Follow-up Care: No scheduled follow-up appointments as the patient is transitioning to comfort care. ----- Plan discussed with attending physician Dr. Candis Pérez MD PGY-1 Internal Medicine Time Spent with Patient Time attestation: Total time spent providing and/or coordinating discharge services: Exam Vital Signs Temp Pulse Resp BP Pulse Ox O2 Del Method 97.9 F 92 16 134/68 H 95 Room Air 03/22/25 15:38 03/22/25 15:38 03/22/25 15:38 03/22/25 15:38 03/22/25 15:38 03/22/25 15:38 Narrative Exam General: Lethargic, chronically ill-appearing. AO ?1 (self). HEENT: Dry mucous membranes. No trauma. Eyes: PERRL, EOMI. Neck: Supple, no tenderness. Heart: RRR, no murmurs. Lungs: Clear to auscultation; no respiratory distress. Abdomen: Soft, nontender, nondistended; normal bowel sounds. Skin: Warm, dry. Multiple ecchymoses of varying ages. Neuro: CN II?XII grossly intact. No focal motor deficits. MSK: No joint tenderness or restricted ROM. Psych: Unable to assess due to AMS. Discharge Plan Prescriptions/Referrals Prescriptions/Med Rec: No Action lorazepam [Lorazepam Intensol] 2 mg/mL concentrate 1 mg PO PRN PRN (Reason: agitation) Patient Comments: give 0.5mg(0.25ml) every 6 hours as needed for anxiety/agitation mirtazapine 30 mg tablet 30 mg PO QDAY donepezil 10 mg tablet 10 mg PO QDAY glyburide 5 mg tablet 5 mg PO TID Qty: 90 0RF Humulin R Regular U-100 Insuln 100 unit/mL solution 1 sliding scale dose subcut USEASDIRECTD MDD per sliding scale Qty: 10 2RF divalproex 250 mg tablet,delayed release (DR/EC) 250 mg PO BID aspirin 81 mg capsule 81 mg PO QDAY quetiapine [Seroquel] 100 mg tablet 400 mg PO BID (DME) blood-glucose meter [Accu-Chek Guide Glucose Meter] Misc See Rx Instructions .Route Qty: 1 0RF Rx Instructions: As directed (DME) Accutrend Glucose test strips Strip See Rx Instructions .Route Qty: 50 2RF Rx Instructions: As directed (DME) lancets Misc See Rx Instructions .Route Qty: 100 0RF Rx Instructions: As directed Referrals: Emilia Cardona MD [Primary Care Provider, Family Practice] Patient/Caregiver Discharge Instructions Print Language: Turkish
[2025-03-22] MEDS: DIVALPROEX SOD EC 125 MG TABEC 250 MG PO (20:20)
[2025-03-22] MEDS: MIRTAZAPINE 15 MG TABLET 30 MG PO (20:20)
--- NOTE | 2025-03-22 21:00 | PC.NURSE ---
called Dr. Underwood regarding is restless and agitated, trying to get out of bed, patient redirectable for a while but will repeat behavior. Per doctor will put in orders.
[2025-03-23] VITALS: BP 145/88; PULSE 91; RESP 17; TEMP 36.2; O2SAT 95
[2025-03-23 04:00] VITALS: BP 147/94; PULSE 87; RESP 16; TEMP 36.4; O2SAT 94
--- NOTE | 2025-03-23 05:25 | PC.NURSE ---
called Dr. Ricks regarding patient having no recorded bowel movement since admission, patient does not have any bowel regimen, per doctor x1 order of keily and alexandra.
[2025-03-23] MEDS: INSULIN LISPRO (AdmeLOG) 1 UNIT/0.01 ML UNIT SC ×3 (05:54→11:56)
--- NOTE | 2025-03-23 06:10 | PC.NURSE ---
called Dr. Underwood regarding patient refused senna and miralax. Per doctor will let day team know.
[2025-03-23] MEDS: DEXTROSE 5%-NS 1,000 ML 125 ML IV (06:16)
[2025-03-23 08:15] VITALS: BP 147/99; PULSE 93; RESP 18; TEMP 36.2; O2SAT 97
[2025-03-23] MEDS: HEPARIN SOD INJ 5000 UNIT/ML VIAL SC (09:56)
[2025-03-23 10:13] VITALS: BP 147/99; PULSE 93
[2025-03-23 10:14] VITALS: BP 147/99; PULSE 93
--- NOTE | 2025-03-23 10:16 | PC.SS ---
Addendum entered by Kasey Irizarry 03/23/25 11:05: File exchange cancelled, due to [facility] not being able to take home med Seroquel. SS reached out to other facilities who also stated they can not accept that medication as it is considered a chemical restraint. Per Team they can not change pts home meds as it was prescribed by PCP Addendum entered by Kasey Irizarry 03/23/25 10:27: File Exchanged [facility] to [facility] [phone] Original Note: [facility] LVL 1 completed and downloaded
--- NOTE | 2025-03-23 10:40 | ESDS_ITS ---
Planned Discharge Date 03/23/25 DS: Providers Provider Date of admission: 03/19/25 18:17 Primary care physician: Emilia Cardona MD Admitting Provider: Irineo Graham MD Attending Provider on Admission: Irineo Graham MD Consults: 03/19/25 18:23 PT [Referral Physical Therapy] Routine Comment: Physician Instructions: 03/19/25 18:24 Referral Registered Dietitian Routine Comment: 03/19/25 23:32 Referral Wound Care Routine Comment: 03/20/25 03:57 Referral Speech Therapy Routine Comment: 03/20/25 14:04 Referral Hospice Routine Comment: Attending Provider on DC: Ezio Chirinos MD Discharging Provider: Shira Pérez MD DS: Diagnosis Problem List Completed Was Problem List Reviewed/Reconciled?: Yes Hospital Course Hospital Course Hospital course: 74-year-old female with advanced dementia, was admitted for failure to thrive, dehydration, hypomagnesemia, pneumonia, and worsening confusion over a 3-5 day period of decreased oral intake, weakness, and recurrent falls. Throughout her stay, the patient remained AO ?1, with minimal improvement in mental status. Initial management included rehydration with IV fluids, repletion of hypom agnesemia with IV magnesium, and empiric antibiotics for pneumonia. The patient was stabilized, but her clinical condition and family concerns led to discussions regarding goals of care and future placement options. Social Work intervened and had multiple discussions with the family regarding the patient?s prognosis and available options. After careful consideration and family input, the decision was made for the patient to be discharged to SNF for comfort care. Diagnosis During Admission: # Failure to thrive / Progressive functional decline # Advanced dementia (worsening) # Dehydration # Hypomagnesemia # Altered mental status # Hyperglycemia / DM2 # Right 11th rib fracture Discharge Instructions: Follow up with primary care physician within 1 week of discharge Instructions have been explained to the patient with regards to their medications and how to take them. Patient was able to explain back to physician and nursing staff how to take their medications. Patient expressed understanding with instructions. New Medications: You have been started on losartan 25mg every day for your blood pressure Continue to take the rest of your medications as prescribed by your primary care physician. Patient has been explained that should any symptoms recur or worsen patient is instructed to return to the Emergency Department. ----- Plan discussed with attending physician Dr. Candis Pérez MD PGY-1 Internal Medicine Time Spent with Patient Time attestation: Total time spent providing and/or coordinating discharge services: 34 minutes Time spent: Greater than 30 minutes Exam Vital Signs Temp Pulse Resp BP Pulse Ox O2 Del Method 97.2 F 93 18 147/99 H 97 Room Air 03/23/25 08:15 03/23/25 10:14 03/23/25 08:15 03/23/25 10:14 03/23/25 08:15 03/23/25 08:15 Narrative Exam General: Lethargic, chronically ill-appearing. AO ?1 (self). HEENT: Dry mucous membranes. No trauma. Eyes: PERRL, EOMI. Neck: Supple, no tenderness. Heart: RRR, no murmurs. Lungs: Clear to auscultation; no respiratory distress. Abdomen: Soft, nontender, nondistended; normal bowel sounds. Skin: Warm, dry. Multiple ecchymoses of varying ages. Neuro: CN II?XII grossly intact. No focal motor deficits. MSK: No joint tenderness or restricted ROM. Psych: Unable to assess due to AMS. Discharge Plan Plan Patient Disposition: Xfer Skilled Nsg Fac (SNF) Patient condition on transfer: Stable Care Plan Goals: Follow up with primary care physician within 1 week of discharge Instructions have been explained to the patient with regards to their medications and how to take them. Patient was able to explain back to physician and nursing staff how to take their medications. Patient expressed understanding with instructions. New Medications: You have been started on losartan 25mg every day for your blood pressure Continue to take the rest of your medications as prescribed by your primary care physician. Patient has been explained that should any symptoms recur or worsen patient is instructed to return to the Emergency Department. Prescriptions/Referrals Prescriptions/Med Rec: New losartan 25 mg tablet 25 mg PO QDAY Qty: 30 0RF Continued lorazepam [Lorazepam Intensol] 2 mg/mL concentrate 1 mg PO PRN PRN (Reason: agitation) Patient Comments: give 0.5mg(0.25ml) every 6 hours as needed for anxiety/agitation mirtazapine 30 mg tablet 30 mg PO QDAY donepezil 10 mg tablet 10 mg PO QDAY glyburide 5 mg tablet 5 mg PO TID Qty: 90 0RF Humulin R Regular U-100 Insuln 100 unit/mL solution 1 sliding scale dose subcut USEASDIRECTD MDD per sliding scale Qty: 10 2RF divalproex 250 mg tablet,delayed release (DR/EC) 250 mg PO BID aspirin 81 mg capsule 81 mg PO QDAY quetiapine [Seroquel] 100 mg tablet 400 mg PO BID (DME) blood-glucose meter [Accu-Chek Guide Glucose Meter] Misc See Rx Instructions .Route Qty: 1 0RF Rx Instructions: As directed (DME) Accutrend Glucose test strips Strip See Rx Instructions .Route Qty: 50 2RF Rx Instructions: As directed (DME) lancets Misc See Rx Instructions .Route Qty: 100 0RF Rx Instructions: As directed Referrals: Emilia Cardona MD [Primary Care Provider, Family Practice] Patient/Caregiver Discharge Instructions Education Materials: Caring for End-Stage Dementia, Dehydration Print Language: Pashto Stand Alone Forms: [facility] Award Info., Patient Portal Info Letter Discharge Order Discharge Orders: Discharge (Routine); Ordered 03/23/25 Ordered By: Pro Castano Quality Discharge Quality Measures comfort care/end of life MD Attestestation MD Attestation I have seen and examined the patient. I was physically present for the garcia portions of the services provided including history, physical exam, diagnosis, treatment plans and orders. I agree with assessment and plan of care as documented by residents. Even though this this note was carefully revised there may still be minor errors in outreach clinician due to voice recognition software. Ezio Chirinos MD
--- NOTE | 2025-03-23 11:59 | PC.SS ---
Addendum entered by Kasey Irizarry 03/23/25 12:31: SS utilized ALICIA with [facility] for DC today to [facility] pending ETA Addendum entered by Kasey Irizarry 03/23/25 12:31: SS spoke to Amarjit pt and updated him on placement barrier SS explained [facility] is only facility at this time. Amarjit ok with plan for DC today Addendum entered by Kasey Irizarry 03/23/25 12:30: SS received a call from [facility] who stated they can accept pt. SS informed Sade of 1:1 sitter for redirection, Sade confirmed with DON that it is ok she can go today Original Note: Referral has been submitted to SNF through [facility] [place]. No accepting facilities at this time
[2025-03-23 12:00] VITALS: BP 136/92; PULSE 65; RESP 18; TEMP 36.2; O2SAT 94
--- NOTE | 2025-03-23 16:06 | PC.SS ---
Pt was picked up from today at 3:32 pm to [facility]. SS received call from patient's family (Luis Alberto Ocasio and his dtr) at 3:37 requesting [facility]. Pt had already been d/c to [facility]. Family is aware.
== END 2025-03-23 15:32 | disposition skilled nursing facility (03) | DRG 641 ==
LOC: SERX 18:12 → SERHOLD 18:44 → S3NX 19:55 → S3SX 03-22 05:25
PROVIDERS: Emergency Medicine; Admitting Provider Internal Medicine; Emergency Provider Emergency Medicine; PCP Family Medicine; Visit Provider Internal Medicine
DX: E86.0 Dehydration (principal); S22.31XA Fracture of one rib, right side, initial encounter for closed fracture; R62.7 Adult failure to thrive; F03.90 Unspecified dementia, unspecified severity, without behavioral disturbance, psychotic disturbance, mood disturbance, and anxiety; R29.6 Repeated falls; E11.65 Type 2 diabetes mellitus with hyperglycemia; E83.42 Hypomagnesemia; Z79.84 Long term (current) use of oral hypoglycemic drugs; I10 Essential (primary) hypertension; Z51.5 Encounter for palliative care; Z66 Do not resuscitate; Z79.82 Long term (current) use of aspirin
CPT/HCPCS: 36415; 36600; 51701; 70450; 71045; 71250; 72125; 74176; 80048; 80053; 81001; 82140; 82248; 82550; 82803; 83036; 83605; 83690; 83735; 83880; 84100; 84145; 84443; 84484; 85025; 85652; 86140; 87040; 87502; 87811; 92610; 93005; 96361; 96365; 96366; 96375; 97162; 99284; A4216; J1200; J1630; J1644; J1815; J2358; J2405; J2470; J3475; J7030; J7042; J7120; A9270; J2359